=== PATIENT | male | born 1955 | race Caucasian/White ===

== ENCOUNTER 2023-06-18 06:14 | Emergency (ER) | payer OTHER, SELFPAY ==
--- NOTE | ~2023-06-18 | XR_ITS ---
EXAMINATION: XR CHEST CLINICAL INFORMATION: Cough and shortness of breath. COMPARISON: None available. TECHNIQUE: 2 views of the chest were obtained. FINDINGS: The lungs are well expanded. No focal consolidation. No pleural effusion. Cardiac silhouette is prominent. Thoracic aorta is tortuous and ectatic. XR/XR chest 2V IMPRESSION: No acute abnormality.
[2023-06-18 06:26] VITALS: BP 145/70; PULSE 93; RESP 22; TEMP 37.1; O2SAT 95; BMI 38.2
[2023-06-18 07:12] VITALS: BP 140/57; PULSE 98; RESP 19; TEMP 37; O2SAT 96
[2023-06-18 07:35] LABS: Appearance Urine Clear; Color Urine Yellow; Glucose Urine UA >=1000 mg/dL (Negative); Leukocyte Esterase Urine Negative (Negative); Nitrite Urine Negative (Negative); PH 5.5 (5.0-9.0); Specific Gravity - Urine >= 1.030 (1.005-1.025); UMIC TRIGGER UACC YES; Urine Blood Trace (Negative); Urine Ketones Negative (Negative); Urine Protein 100 (2+) mg/dL (Neg-Trace)
[2023-06-18 07:38] LABS: Bacteria Urine None Seen (None Seen); Hyaline Casts Urine 0-2 /LPF (0-2); RBC Urine 0-2 /HPF (0-2); Squamous Epithelial Cell Urine 0-2 /HPF (0-2); WBC Urine 0-5 /HPF (0-5)
--- NOTE | 2023-06-18 07:39 | ED_ITS ---
[facility] - General Adult General Chief complaint: Nausea/Vomiting/Diarrhea Stated complaint: Vomiting, diarrhea Time Seen by Provider: 06/18/23 07:33 Source: patient, RN notes reviewed and old records reviewed Mode of arrival: ambulatory History of Present Illness HPI narrative: 68-year-old male with past medical history of diabetes, AFib on Xarelto, presenting to the ED complaining of nonbloody diarrhea, nausea, chills, sweats, and SOB x1 week. Also reports some abdominal discomfort. Admits was evaluated at [place] ED last week s/p trip & fall down a few stairs, had workup which was unremarkable. Denies known fever, dysuria/hematuria, suspicious food intake or recent travel, LE edema Admits son is also sick Onset (ago): week(s) Related Data Allergies Allergy/AdvReac Type Severity Reaction Status Date / Time No Known Allergies Allergy Verified 06/18/23 06:32 Review of Systems 2 Review of Systems: Constitutional: No Fever, No Chills, No Fatigue, No Malaise ENT/Mouth: No Ear Pain, No Nasal Congestion,No sore throat, No Rhinorrhea, No Swallowing Difficulty Eyes: No Eye Pain, No Swelling, No Redness, No Vision Changes Cardiovascular: No Chest Pain, No SOB, No Dyspnea on Exertion, No Orthopnea, No Edema, No Palpitations Respiratory: No Cough, No Sputum, No Dyspnea Gastrointestinal: +Nausea,+ Vomiting, +Diarrhea, No Constipation, + Abdominal pain, No Hematochezia, No Melena Genitourinary: No irregular bleeding, No Dysuria, No Urinary Frequency, No Hematuria, No Flank Pain, No Urinary Flow Changes, No Hesitancy Musculoskeletal: No joint pain, No Myalgias, No Joint Swelling Skin: No Skin Lesions, No rash Neuro: No Weakness, No Numbness, No Loss of Consciousness, No Dizziness, No Headache Yes all other systems are reviewed and are negative Constitutional: Constitutional: Reports as per [facility] Past Medical History Attestation statement: The following information was validated with the patient. Source: old records reviewed Social History Social History Smoked in Last 30 Days: Yes Use of substances other than those prescribed or required for medical reasons: No Advance Directives: No Advance Directives Information Provided: Yes Physical Exam ED Vital Signs: Vital Signs - 24 hr 06/18/23 06:26 06/18/23 07:12 06/18/23 07:49 Temperature 98.7 F 98.6 F 98.3 F Pulse Rate 93 98 Respiratory Rate 22 H 19 Blood Pressure 145/70 H 140/57 H Pulse Oximetry 95 96 Oxygen Delivery Method Room Air Room Air 06/18/23 09:38 Temperature Pulse Rate 85 Respiratory Rate 16 Blood Pressure 133/61 Pulse Oximetry Oxygen Delivery Method BMI result Body Mass Index 38.2 Const General: cooperative, healthy appearing and no acute distress Orientation/consciousness: patient oriented x3 Limitations: no limitations HENMT Head: Yes normal to inspection and Yes atraumatic Ears: hearing grossly normal bilaterally and external ears normal General nose exam: Normal external nose present Face and sinus: Yes normal facial exam Mouth: Normal oral and palatal mucosa present and no drooling Throat: Yes posterior oropharynx normal, Yes uvula midline and No uvular edema Eyes General: appearance normal, both eyes and all related structures EOM: EOMs intact bilaterally Neck Neck: Yes normal visual inspection and Yes no meningeal signs Resp Effort & Inspection: normal respiratory effort and no respiratory distress Auscultation: clear to auscultation bilaterally, no crackles and no wheezes Cardio Rate: regular rate Heart sounds: S1 normal heart sound present and S2 normal heart sound present GI Inspection: Yes normal to inspection Palpation (GI): Soft to palpation, nontender, no guarding and not rigid General: Yes no CVA tenderness Back/Spine/Pelvis Back: no CVA tenderness Skin Rashes: no rashes Wounds: no wounds Neuro General: patient oriented x3, tone normal and no meningeal signs Cranial nerves: Yes CN's II-XII intact bilaterally Gait exam (Neuro): Normal gait present Extrem General: Yes normal to inspection and Yes no pedal edema Course Course Course Narrative: -0909--mild leukocytosis of 11.5. BUN of 19 likely from dehydration. Magnesium 1.5 > 2 g IV repletion ordered -UA not infected. COVID and influenza negative XR chest 2V IMPRESSION: No acute abnormality. > 0916--patient complaining of continued nausea, dry cough and neuropathy. Home dose of metoprolol, pregabalin -1026--patient is tolerating p.o. in the ED that difficulty. Requesting discharge at this Results discussed with patient including worrisome signs and symptoms and strict return precautions, and when to return to the emergency department. They verbalized understanding and feel safe for discharge at this time. Medications Administered Discontinued Medications Generic Name Dose Route Start Last Admin Trade Name Pari PRN Reason Stop Dose Admin Benzonatate 100 mg 06/18/23 09:15 06/18/23 09:33 Benzonatate 100 Mg Capsule PO 06/18/23 09:16 100 mg ONCE ONE Administration Sodium Chloride 1,000 mls @ 999 mls/hr 06/18/23 07:45 06/18/23 09:33 Ns IV 06/18/23 08:45 Infused .Q1H1M SUSANA Infusion Magnesium Sulfate 2 gm in 50 mls @ 25 mls/hr 06/18/23 09:10 06/18/23 09:32 Magnesium Sulfate/H2o IV 06/18/23 11:09 25 mls/hr ONCE ONE Administration Metoclopramide HCl 10 mg 06/18/23 09:15 06/18/23 09:33 Metoclopramide Hcl 10 Mg/2 Ml Vial IVPUSH 06/18/23 09:16 10 mg ONCE ONE Administration Metoprolol Succinate 100 mg 06/18/23 09:14 06/18/23 09:33 Metoprolol Succinate Er 100 Mg Tab.Er.24h PO 06/18/23 09:15 100 mg ONCE ONE Administration Protocol Ondansetron HCl 4 mg 06/18/23 07:53 06/18/23 08:07 Ondansetron Hcl 4 Mg/2 Ml Vial IVPUSH 06/18/23 07:54 4 mg ONCE ONE Administration Pregabalin 200 mg 06/18/23 09:14 06/18/23 09:54 Pregabalin 200 Mg Capsule PO 06/18/23 09:15 200 mg ONCE ONE Administration Medical Decision Making Medical Decision Making MDM Narrative: 68-year-old male with past medical history of diabetes, AFib on Xarelto, presenting to the ED complaining of nonbloody diarrhea, nausea, chills, sweats, and SOB x1 week. On exam vital signs stable, NAD, nontoxic appearing, lungs CTA, abdomen soft/nontender, no CVAT. Concern for viral illness including COVID-19 vs gastroenteritis vs dehydration/metabolic abnormalities. Rule out pneumonia/bronchitis. Lower suspicion for ACS/PE or CHF at this time. Unlikely appendicitis/diverticulitis or acute pancreatitis without tenderness on exam Plan: EKG, labs, UA, CXR, viral testing, IVF, antiemetic, re-evaluate Please refer to course for remaining clinical decision making, interpretation of labs/imaging results, and discussions with consultants and/or family members. Differential Diagnosis Differential Diagnoses: The differential diagnosis associated with the presentation includes As above Admission/Observation Consideration of admission/observation: Escalation of care including admission/observation considered Lab Data MDM Lab Attestation statement: I reviewed the patient's lab results. 06/18/23 07:39 06/18/23 08:16 Labs: Lab Results 06/18/23 06/18/23 06/18/23 Range/Units 07:25 07:39 07:47 WBC 11.5 H (4.8-10.8) X10*3/uL RBC 5.15 (4.60-5.80) X10*6/uL Hgb 15.0 (14.0-18.0) g/dl Hct 43.1 (42.0-52.0) % MCV 83.7 (80.0-98.0) fL MCH 29.1 (27.0-33.0) pg MCHC 34.8 (31.0-36.0) g/dl RDW 14.4 (11.0-16.0) % Plt Count 220 (160-400) X10*3/uL MPV 11.4 (9.4-12.4) fL Immature Gran % (Auto) 0.9 H (0.0-0.4) % Neut % (Auto) 73.3 H (45-73) % Lymph % (Auto) 15.2 L (20-40) % [place] % (Auto) 7.4 (2-11) % Eos % (Auto) 2.3 (0-4) % Baso % (Auto) 0.9 (0-2) % Lymph # (Auto) 1.8 (1.2-4.9) X10*3/uL [place] # (Auto) 0.9 (0.1-1.2) X10*3/uL Eos # (Auto) 0.3 (0.0-0.4) X10*3/uL Baso # (Auto) 0.1 (0.0-0.2) X10*3/uL Abs Immat Gran (auto) 0.10 H (0.00-0.03) X10*3/uL Absolute Neuts (auto) 8.4 H (2.0-8.3) x10*3/uL Absolute Nucleated RBC 0.000 (0.0-0.012) X10*3/uL Nucleated RBC % (auto) 0.0 (0.0-0.2) /100WBC Sodium (135-145) mmol/L Potassium (3.3-5.1) mmol/L Chloride (96-108) mmol/L Carbon Dioxide (22-29) mmol/L Anion Gap (12-20) BUN (9-16) mg/dL Creatinine (0.5-1.4) mg/dL Estim Creat Clear Calc Estimated GFR Random Glucose (60-115) mg/dL Calcium (8.4-10.2) mg/dL Magnesium (1.6-2.6) mg/dL Total Bilirubin (0.0-1.0) mg/dL AST (5-37) U/L ALT (0-40) U/L Alkaline Phosphatase (39-117) U/L B-Natriuretic Peptide 76 (<100) pg/mL Total Protein (6.5-8.0) g/dL Albumin (3.5-5.0) g/dL Urine Color Yellow Urine Appearance Clear Urine pH 5.5 (5.0-9.0) Ur Specific [place] >= 1.030 H (1.005-1.025) Urine Protein 100 (2+) H (Neg-Trace) mg/dL Urine Glucose (UA) >=1000 H (Negative) mg/dL Urine Ketones Negative (Negative) mg/dL Urine Blood Trace H (Negative) Urine Nitrite Negative (Negative) Ur Leukocyte Esterase Negative (Negative) Urine RBC 0-2 (0-2) /HPF Urine WBC 0-5 (0-5) /HPF Ur Squamous Epith Cells 0-2 (0-2) /HPF Urine Bacteria None Seen (None Seen) Hyaline Casts 0-2 (0-2) /LPF COVID-19 (GHASSAN) Negative (Negative) COVID-19 Clin Com See Note Influenza Type A (EDWIN) Negative (Negative) Influenza Type B (EDWIN) Negative (Negative) Influenza A & B Note See Note 06/18/23 Range/Units 08:16 WBC (4.8-10.8) X10*3/uL RBC (4.60-5.80) X10*6/uL Hgb (14.0-18.0) g/dl Hct (42.0-52.0) % MCV (80.0-98.0) fL MCH (27.0-33.0) pg MCHC (31.0-36.0) g/dl RDW (11.0-16.0) % Plt Count (160-400) X10*3/uL MPV (9.4-12.4) fL Immature Gran % (Auto) (0.0-0.4) % Neut % (Auto) (45-73) % Lymph % (Auto) (20-40) % [place] % (Auto) (2-11) % Eos % (Auto) (0-4) % Baso % (Auto) (0-2) % Lymph # (Auto) (1.2-4.9) X10*3/uL [place] # (Auto) (0.1-1.2) X10*3/uL Eos # (Auto) (0.0-0.4) X10*3/uL Baso # (Auto) (0.0-0.2) X10*3/uL Abs Immat Gran (auto) (0.00-0.03) X10*3/uL Absolute Neuts (auto) (2.0-8.3) x10*3/uL Absolute Nucleated RBC (0.0-0.012) X10*3/uL Nucleated RBC % (auto) (0.0-0.2) /100WBC Sodium 133 L (135-145) mmol/L Potassium 3.8 (3.3-5.1) mmol/L Chloride 100 (96-108) mmol/L Carbon Dioxide 20 L (22-29) mmol/L Anion Gap 17 (12-20) BUN 19 H (9-16) mg/dL Creatinine 1.15 (0.5-1.4) mg/dL Estim Creat Clear Calc 77.4 Estimated GFR > 60 Random Glucose 270 H (60-115) mg/dL Calcium 9.9 (8.4-10.2) mg/dL Magnesium 1.5 L (1.6-2.6) mg/dL Total Bilirubin 0.6 (0.0-1.0) mg/dL AST 21 (5-37) U/L ALT 18 (0-40) U/L Alkaline Phosphatase 95 (39-117) U/L B-Natriuretic Peptide (<100) pg/mL Total Protein 6.5 (6.5-8.0) g/dL Albumin 3.7 (3.5-5.0) g/dL Urine Color Urine Appearance Urine pH (5.0-9.0) Ur Specific [place] (1.005-1.025) Urine Protein (Neg-Trace) mg/dL Urine Glucose (UA) (Negative) mg/dL Urine Ketones (Negative) mg/dL Urine Blood (Negative) Urine Nitrite (Negative) Ur Leukocyte Esterase (Negative) Urine RBC (0-2) /HPF Urine WBC (0-5) /HPF Ur Squamous Epith Cells (0-2) /HPF Urine Bacteria (None Seen) Hyaline Casts (0-2) /LPF COVID-19 (GHASSAN) (Negative) COVID-19 Clin Com Influenza Type A (EDWIN) (Negative) Influenza Type B (EDWIN) (Negative) Influenza A & B Note Independent Interpretation I performed an independent interpretation of an: EKG Radiology Impression Discussion of test interpretation with radiology: I have reviewed the radiologist's reading. External Record Review External record reviewed: Inpatient record, Office record, Outpatient record, Prior outpatient labs, Prior outpatient radiology, Primary care record and Outside ED record Tests considered The following testing was considered but not selected: As above Chronic Conditions Patient?s care impacted by: Diabetes Discharge Plan Discharge Clinical Impression: Acute viral syndrome Patient Disposition: Home, Self-Care Instructions: Viral Syndrome (ED) Additional Instructions: Your work and x-ray were reassuring You tested negative COVID and flu x-rays unremarkable Please of close follow-up with your doctor If symptoms persist or worsen return to emergency department Make sure you are staying hydrated Referrals: Physician,Unknown J [Primary Care Provider] - 3 days Interventions: ED Discharge Assessment Last Done: 06/18/23 10:48 Discharge Date/Time: 06/18/23 10:50
[2023-06-18 07:45] LABS: MANUAL DIFF FLAG NO
[2023-06-18 07:46] LABS: Basophils Absolute Auto 0.1 X10*3/uL (0.0-0.2); Basophils Percent Auto 0.9 % (0-2); Eosinophils Absolute Auto 0.3 X10*3/uL (0.0-0.4); Eosinophils Percent Auto 2.3 % (0-4); Hematocrit 43.1 % (42.0-52.0); Imm Gran Pct Auto 0.9 % (0.0-0.4); Lymphocytes Absolute Auto 1.8 X10*3/uL (1.2-4.9); Lymphocytes Percent Auto 15.2 % (20-40); Mean Corpuscular HGB Conc 34.8 g/dl (31.0-36.0); Mean Corpuscular Hemoglobin 29.1 pg (27.0-33.0); Mean Corpuscular Volume 83.7 fL (80.0-98.0); Mean Platelet Volume 11.4 fL (9.4-12.4); Monocytes Absolute Auto 0.9 X10*3/uL (0.1-1.2); Monocytes Percent Auto 7.4 % (2-11); Neutrophils Absolute Auto 8.4 x10*3/uL (2.0-8.3); Neutrophils Percent Auto 73.3 % (45-73); Platelet Count 220 X10*3/uL (160-400); Red Blood Count 5.15 X10*6/uL (4.60-5.80); Red Cell Distribution Width 14.4 % (11.0-16.0); White Blood Count 11.5 X10*3/uL (4.8-10.8)
[2023-06-18 07:49] VITALS: TEMP 36.8
[2023-06-18 07:49] LABS: COVID-19 Test Negative (Negative); IDNOW Serial# 6674DD1D
--- NOTE | 2023-06-18 07:58 | ECG_ITS ---
Test Reason : sob Blood Pressure : / mmHG Vent. Rate : 094 BPM Atrial Rate : 000 BPM P-R Int : 000 ms QRS Dur : 138 ms QT Int : 412 ms P-R-T Axes : 000 104 013 degrees QTc Int : 515 ms Atrial fibrillation Right bundle branch block Abnormal ECG No previous ECGs available Referred By: Rosalba Jarvis Electronically Signed By:PHIL TREJO
[2023-06-18] MEDS: ondansetron HCL 4 MG/2 ML VIAL IVPUSH (08:07)
[2023-06-18] MEDS: 0.9 % Sodium Chloride 1,000 ML 999 ML IV (08:07)
[2023-06-18 08:12] LABS: IDNOW Serial# 08D9AD1C; Influenza A Negative (Negative); Influenza B2 Negative (Negative)
[2023-06-18 08:44] LABS: Alanine Aminotransferase 18 U/L (0-40); Albumin Level 3.7 g/dL (3.5-5.0); Alkaline Phosphatase 95 U/L (39-117); Anion Gap 17 (12-20); Aspartate Amino Transferase 21 U/L (5-37); Bilirubin Total 0.6 mg/dL (0.0-1.0); Blood Urea Nitrogen 19 mg/dL (9-16); Calcium 9.9 mg/dL (8.4-10.2); Carbon Dioxide 20 mmol/L (22-29); Chloride 100 mmol/L (96-108); Creatinine Clr Calc Pharmacy 77.4; Estimated Glomerular Filt Rate > 60; Glucose Random 270 mg/dL (60-115); Potassium 3.8 mmol/L (3.3-5.1); Sodium 133 mmol/L (135-145); Total Protein 6.5 g/dL (6.5-8.0)
[2023-06-18 08:59] LABS: Magnesium 1.5 mg/dL (1.6-2.6)
[2023-06-18 08:59] LABS: B Type Natriuretic Peptide 76 pg/mL (<100)
[2023-06-18] MEDS: Magnesium Sulfate/H2O 2 GM/50 ML PIGGYBACK IV (09:32)
[2023-06-18] MEDS: Metoprolol Succinate ER 100 MG TAB.ER.24H PO (09:33)
[2023-06-18] MEDS: Benzonatate 100 MG CAPSULE PO (09:33)
[2023-06-18] MEDS: Metoclopramide HCl 10 MG/2 ML VIAL IVPUSH (09:33)
[2023-06-18 09:38] VITALS: BP 133/61; PULSE 85; RESP 16
[2023-06-18] MEDS: Pregabalin 200 MG CAPSULE PO (09:54)
== END 2023-06-18 10:50 | disposition home or self-care (01) ==
PROVIDERS: Physician Assistant; Emergency Provider Emergency Medicine
DX: B34.9 Viral infection, unspecified (principal); I48.91 Unspecified atrial fibrillation; I45.10 Unspecified right bundle-branch block; R11.2 Nausea with vomiting, unspecified; R19.7 Diarrhea, unspecified; R10.13 Epigastric pain; R06.02 Shortness of breath; Z20.822 Contact with and (suspected) exposure to COVID-19; Z20.828 Contact with and (suspected) exposure to other viral communicable diseases; Z79.899 Other long term (current) drug therapy
CPT/HCPCS: 36415; 71046; 80053; 81001; 83735; 83880; 85025; 87502; 87635; 93005; 96361; 96374; 96375; 99284; 99285; J2405; J2765; J3475

== ENCOUNTER 2024-12-18 22:15 | Inpatient (IN) | payer MEDICARE, SELFPAY ==
--- NOTE | 2024-12-18 | ECG_ITS ---
Test Reason : TACHYCARDIA Blood Pressure : */* mmHG Vent. Rate : 111 BPM Atrial Rate : * BPM P-R Int : * ms QRS Dur : 134 ms QT Int : 368 ms P-R-T Axes : * 102 -13 degrees QTcB Int : 500 ms Atrial fibrillation with rapid ventricular response with premature ventricular or aberrantly conducted complexes Right bundle branch block Abnormal ECG When compared with ECG of 18-Jun-2023 08:33, Nonspecific ST and T wave abnormality present Referred By: Generic ED Physician Electronically Signed By: RAINE MCGOWAN
--- NOTE | ~2024-12-18 | CT_ITS ---
CLINICAL HISTORY: altered mental status CT head without contrast Comparison: None Findings: No intra-axial mass, midline shift, hydrocephalus, or acute hemorrhage. Small hypodensity in the central estelita image 20:2. The visualized paranasal sinuses and mastoid air cells are normal. The orbits are within normal limits. There is no acute fracture. IMPRESSION: Small central estelita hypodensity is age indeterminate. An old lacunar infarct is favored. This can be further characterized with MRI if needed. This document has been electronically signed by: Ambika Hua MD on 12/18/2024 23:41:18
--- NOTE | ~2024-12-18 | XR_ITS ---
CLINICAL HISTORY: cough 1 view chest Comparison: CR/DE/SR - XR CHEST 2V - 06/18/23 08:34 EDT Findings: Low inspiration. Resultant mild vascular crowding centrally with subsegmental atelectasis. No consolidation or effusion. Heart size enlarged. No acute fractures. Impression: 1. Low inspiration with central vascular crowding and subsegmental atelectasis. This document has been electronically signed by: Ambika Hua MD on 12/19/2024 00:32:24
--- NOTE | ~2024-12-18 | MR_ITS ---
CLINICAL HISTORY: pontine hypodensity Motion throughout images. BLADE sequences run. MR Brain without gadolinium Comparison: CT/DC/SR - CT HEAD/BRAIN WO IV CON - 12/18/24 23:05 EDT Findings: No restricted diffusion. No intra-axial mass or hemorrhage. No midline shift. No hydrocephalus. Vascular flow voids are intact. Orbital contents are unremarkable. The sinuses and mastoid air cells are clear. No focal bone lesion. IMPRESSION: No acute abnormality of the brain. This document has been electronically signed by: Kristie Jack MD on 12/20/2024 14:14:15
[2024-12-18 22:19] VITALS: BP 170/100; PULSE 130; O2SAT 98
[2024-12-18 22:21] VITALS: BP 122/100; PULSE 129; RESP 20; TEMP 36.8; O2SAT 95; BMI 35.4
--- NOTE | 2024-12-18 22:41 | PC.NURSE ---
18G placed in right wrist, labs obtained. pt able to urinate in urinal, urinalysis sent.
[2024-12-18 22:42] LABS: Glucose, Whole Blood > 600 mg/dL (60-115)
[2024-12-18 22:45] LABS: Basophils Percent Auto 0.1 % (0-2); Hematocrit 34.9 % (42.0-52.0); Hemoglobin 11.3 g/dl (14.0-18.0); Imm Gran Abs Auto 0.08 X10*3/uL (0.00-0.03); Imm Gran Pct Auto 0.8 % (0.0-0.4); Lymphocytes Absolute Auto 0.2 X10*3/uL (1.2-4.9); Lymphocytes Percent Auto 1.5 % (20-40); MANUAL DIFF FLAG SCAN; Mean Corpuscular HGB Conc 32.4 g/dl (31.0-36.0); Mean Corpuscular Hemoglobin 26.7 pg (27.0-33.0); Mean Corpuscular Volume 82.5 fL (80.0-98.0); Mean Platelet Volume 10.9 fL (9.4-12.4); Monocytes Absolute Auto 0.1 X10*3/uL (0.1-1.2); Monocytes Percent Auto 0.7 % (2-11); Neutrophils Absolute Auto 10.3 x10*3/uL (2.0-8.3); Neutrophils Percent Auto 96.9 % (45-73); Platelet Count 333 X10*3/uL (160-400); Red Blood Count 4.23 X10*6/uL (4.60-5.80); Red Cell Distribution Width 17.3 % (11.0-16.0); SCAN SMEAR FLAG 1; White Blood Count 10.6 X10*3/uL (4.8-10.8)
[2024-12-18 22:45] LABS: VBG Base Excess -6.1 mmol/L; VBG HCO3 18 mmol/L (22-26); VBG pCO2 33 mmHg; VBG pH 7.34 (7.32-7.43); VBG pO2 73 mmHg
[2024-12-18 22:45] LABS: Venous Blood Gas Refer to POC result
[2024-12-18 22:46] LABS: Appearance Urine Clear; Color Urine Yellow; Glucose Urine UA >=1000 mg/dL (Negative); Leukocyte Esterase Urine Negative (Negative); Nitrite Urine Negative (Negative); Specific Gravity - Urine >= 1.030 (1.005-1.025); UMIC TRIGGER UACC YES; Urine Blood Small (1+) (Negative); Urine Ketones Negative (Negative); Urine Protein 100 (2+) mg/dL (Neg-Trace)
[2024-12-18 22:55] LABS: Ethanol < 10 mg/dL
[2024-12-18 22:58] LABS: Amphetamine Screen Urine Not Detected (Not Detect); Barbiturates, Urine Not Detected (Not Detect); Benzodiazepines Screen Urine Not Detected (Not Detect); Buprenorphine Scr Not Detected (Not Detect); Cannabinoid Screen Urine Not Detected (Not Detect); Cocaine Screen Urine Not Detected (Not Detect); Fentanyl, urine Not Detected (Not Detect); Methadone Screen, Urine Not Detected (Not Detect); Opiate Screen Urine POSITIVE (Not Detect); Oxycodone Screen Urine Not Detected (Not Detect); Phencyclidine Screen Urine Not Detected (Not Detect)
[2024-12-18 23:00] LABS: Alanine Aminotransferase 11 U/L (0-40); Albumin Level 3.8 g/dL (3.5-5.0); Alkaline Phosphatase 108 U/L (39-117); Anion Gap 23 (12-20); Aspartate Amino Transferase 15 U/L (5-37); Bilirubin Total 0.4 mg/dL (0.0-1.0); Blood Urea Nitrogen 31 mg/dL (9-16); Calcium 8.8 mg/dL (8.4-10.2); Carbon Dioxide 18 mmol/L (22-29); Chloride 95 mmol/L (96-108); Estimated Glomerular Filt Rate 40; Potassium 4.5 mmol/L (3.3-5.1); Sodium 131 mmol/L (135-145); Total Protein 6.9 g/dL (6.5-8.0)
[2024-12-18 23:02] LABS: Bacteria Urine None Seen (None Seen); Hyaline Casts Urine 0-2 /LPF (0-2); Squamous Epithelial Cell Urine 0-2 /HPF (0-2); WBC Urine 0-5 /HPF (0-5)
[2024-12-18 23:05] LABS: SLIDE REVIEW VERIFIED
[2024-12-18 23:13] LABS: Glucose Random 805 mg/dL (60-115)
[2024-12-18] MEDS: 0.9 % Sodium Chloride 1,000 ML 999 ML IV (23:15)
[2024-12-18] MEDS: Insulin Regular, Human 100 UNIT/ML 10 ML VIAL 10 UNIT IVPUSH (23:16)
[2024-12-18] MEDS: Lactated Ringers 1,000 ML 999 ML IV (23:26)
[2024-12-18 23:27] LABS: Beta-Hydroxybutyrate 0.29 mmol/L (0.02-0.27)
[2024-12-18 23:30] LABS: Glucose, Whole Blood > 600 mg/dL (60-115)
[2024-12-18] MEDS: Insulin Regular/NS 100 UNIT/100 ML PLAST..BAG 6 UNIT IVCONT (23:42)
[2024-12-19] VITALS (11 sets, daily range): BP systolic 134–147; BP diastolic 65–72; PULSE 87–108; RESP 18–24; TEMP 36.6; O2SAT 95–99
--- NOTE | 2024-12-19 00:01 | PC.NURSE ---
second line started, insulin drip started.
[2024-12-19] MEDS: Albuterol Sulfate 2.5 MG, Albuterol/Iprat 2.5/0.5MG 3 ML 3 ML INHALE (00:10)
[2024-12-19 00:32] LABS: Glucose, Whole Blood > 600 mg/dL (60-115)
[2024-12-19] MEDS: LORazepam 2 MG/ML VIAL IVPUSH (00:35)
--- NOTE | 2024-12-19 00:41 | PC.NURSE ---
poc reading high, blood drawn taken at this time. no change in insulin drip at this time, notified provider.
--- OUTSIDE RECORDS SUMMARY | 2024-12-19 00:55 | XMS_ITS | Clinical Summary ---
Author Organization [address] [facility] Address [address] [place] [address] Phone Care Team Providers Care Cnc Machinist Name Role Phone Josh Dumont MD Primary Care Provider Encounters Date Type Department Care Team Description 12/11/2024 Lab Requisition [facility] Lab [address] [place] [phone] Josh Dumont MD Unspecified atrial fibrillation (CMS/HCC); Type 1 diabetes mellitus, presymptomatic, unspecified; Chronic systolic (congestive) heart failure (CMS/HCC) 12/09/2024 Lab Requisition [facility] Lab [address] [place] [phone] Josh Dumont MD Type 2 diabetes mellitus without complications (CMS/HCC) 11/29/2024 Lab Requisition [facility] Lab [address] [place] [phone] Josh Dumont MD Essential (primary) hypertension; Type 2 diabetes mellitus without complications (CMS/HCC) from Last 3 Months Surgical History Surgery Date Site/Laterality Comments APPENDECTOMY PROCEDURE: HISTORICAL APPENDECTOMY BACK SURGERY PROCEDURE: HISTORICAL BACK SURGERY; COMMENT: surgery x 3, lumbar Medical History Medical History Date Comments Morbid obesity with BMI of 4 0.0-44.9, adult (CMS/HCC) 08/14/2018 DX:Morbid obesity with BMI o f 40.0-44.9, adult (HCC) Chronic hepatitis C (CMS/HCC) 08/14/2018 DX :Chronic hepatitis C (HCC); COMMENT: Starting Harvoni 07/04/2018 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) 08/14/2018 DX: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 (HCC) Persistent atrial fibrillati on (CMS/HCC) 08/14/2018 DX:Persistent atrial fibrill ation (HCC) COPD (chronic obstructive pu lmonary disease) ([facility]) 11/08/2018 DX:COPD (chronic obstructive pulmonary disease) ([facility]) Bipolar disorder 11/08/2018 DX:Bipolar diso rder ([facility]) CHF (congestive heart failur e) ([facility]) 08/14/2018 DX:CHF (congestive heart ezio lure) ([facility]) GERD (gastroesophageal reflu x disease) 11/08/2018 DX:GERD (gastroesophageal re flux disease) Hyperlipidemia 11/08/2018 DX:Hyperlipidemi a HTN (hypertension) 11/08/2018 DX:HTN (hyper tension) DON on CPAP 11/08/2018 DX:DON on CPAP DDD (degenerative disc disea se), lumbosacral 11/08/2018 DX:DDD (degenerative disc di sease), lumbosacral Social History Tobacco Use Types Packs/Day Years Used Date Smoking Tobacco: Light Smoker Smokeless Tobacco: Never Sex and Gender Information Value Date Recorded Sex Assigned at Not on file Legal Sex Male 2:50 AM EST Gender Identity Not on file Sexual Orientation Not on file Obstetrics History Plan of Treatment Health Maintenance Due Date Last Done Comments Diabetes: Annual Foot Exam 1967 Diabetes: Annual Retina Eye Exam 1967 Hepatitis A Vaccines (1 of 2 - Risk 2-dose series) 1976 Zoster Vaccines (1 of 2) 2007 Hepatitis B Vaccines (1 of 3 - Risk 3-dose series) 2017 RSV Immunization Adult Patients (1 - Risk 60-74 years 1-dose series) 2017 COVID-19 Vaccine ( season) 2024 07/09/2021, 11/11/2020, 10/14/2020 Abdominal Aortic Aneurysm (AAA) Screen 11/29/2024 Cholesterol Screening (Lipid Panel) 11/29/2024 Colorectal Cancer Screening: Colonoscopy 11/29/2024 Depression Screening 11/29/2024 Diabetes: Annual Urine Albumin-Creatinine Ratio (uACR) 11/29/2024 Diabetes: Blood Sugar Control Test (HGBA1C) 11/29/2024 Falls Risk Assessment 11/29/2024 Hepatitis C Screening 11/29/2024 Medicare Annual Wellness Visit 11/29/2024 Social Influencers of Health Screening 11/29/2024 DTaP,Tdap,and Td Vaccines (2 - Td or Tdap) 10/19/2025 10/19/2015 Diabetes: Annual GFR (Glomerular Filtration Rate) 12/11/2025 12/11/2024, 12/09/2024, 11/29/2024 Hypertension/CHF/CAD Annual BMP Blood Test 12/11/2025 12/11/2024, 12/09/2024, 11/29/2024 Pneumococcal Vaccine: 50+ Years Completed 08/30/2023, 01/13/2017, 10/08/2008 Influenza Vaccine Completed 08/08/2024, , 07/13/2022, Additional history exists HIB Vaccines Aged Out No longer eligi ble based on patient's age to complete this topic HPV Vaccines Aged Out No longer eligi ble based on patient's age to complete this topic IPV Vaccines Aged Out No longer eligi ble based on patient's age to complete this topic MMR Vaccines Aged Out No longer eligi ble based on patient's age to complete this topic Meningococcal ACWY Vaccine Aged Out N o longer eligible based on patient's age to complete this topic Meningococcal B Vacine Aged Out No lo nger eligible based on patient's age to complete this topic RSV Immunization Patients Under 20 months Aged Out No longer eligible based on patient's age to complete this topic Varicella Vaccines Aged Out No longer eligible based on patient's age to complete this topic Procedures Procedure Name Priority Date/Time Associated Diagnosis Comments B-TYPE NATRIURETIC PEPTIDE Routine 12/11/2024 5:15 AM EDT Unspecified atrial fibrillation (CMS/HCC) Type 1 diabetes mellitus, presymptomatic, unspecified Chronic systolic (congestive) heart failure BASIC METABOLIC PANEL Routine 12/11/2024 5:15 AM EDT Unspecified atrial fibrillation (CMS/HCC) Type 1 diabetes mellitus, presymptomatic, unspecified Chronic systolic (congestive) heart failure COMPLETE BLOOD COUNT Routine 12/11/2024 5:15 AM EDT Unspecified atrial fibrillation (CMS/HCC) Type 1 diabetes mellitus, presymptomatic, unspecified Chronic systolic (congestive) heart failure BASIC METABOLIC PANEL Routine 12/09/2024 5:18 AM EDT Type 2 diabetes mellitus without complications COMPLETE BLOOD COUNT Routine 12/09/2024 5:18 AM EDT Type 2 diabetes mellitus without complications BASIC METABOLIC PANEL Routine 11/29/2024 7:38 AM EDT Essential (primary) hypertension Type 2 diabetes mellitus without complications (CMS/HCC) COMPLETE BLOOD COUNT Routine 11/29/2024 7:38 AM EDT Essential (primary) hypertension Type 2 diabetes mellitus without complications (CMS/HCC) from Last 3 Months Results * (ABNORMAL) Complete blood count (12/11/2024 5:15 AM EDT) Only the most recent of3 resultswithin the time period is included. WBC 10.1 4.8 - 10.8 K/mcL LAB HEMETOLOGY METHOD 12/11/2024 9:42 AM [facility] RBC 4.40(L) 4.50 - 5.50 M/mcL LAB HEMETOLOGY METHOD 12/11/2024 9:42 AM [facility] Hemoglobin 11.6(L) 13.5 - 17.5 g/dL LAB HEMETOLOGY METHOD 12/11/2024 9:42 AM [facility] Hematocrit 37.2(L) 42.0 - 54.0 % LAB HEMETOLOGY METHOD 12/11/2024 9:42 AM [facility] MCV 85.5 79.0 - 98.0 FL LAB HEMETOLOGY METHOD 12/11/2024 9:42 AM [facility] MCH 26.7(L) 27.0 - 32.0 pcg LAB HEMETOLOGY METHOD 12/11/2024 9:42 AM [facility] MCHC 31.2(L) 32.0 - 37.0 g/dL LAB HEMETOLOGY METHOD 12/11/2024 9:42 AM EDT [facility] RDW 17.2(H) 11.0 - 15.0 % LAB HEMETOLOGY METHOD 12/11/2024 9:42 AM EDT [facility] Platelets 306 130 - 400 K/mcL LAB HEMETOLOGY METHOD 12/11/2024 9:42 AM EDT [facility] MPV 10.3 7.0 - 11.0 FL LAB HEMETOLOGY METHOD 12/11/2024 9:42 AM EDT [facility] NRBC 0.0 <1.0 % LAB HEMETOLOGY METHOD 12/11/2024 9:42 AM EDT [facility] NRBC Absolute 0.00 <0.10 K/mcL LAB HEMETOLOGY METHOD 12/11/2024 9:42 AM EDT [facility] Blood Venous blood specimen / Unknown Venipuncture / Unknown 12/11/2024 5:15 AM EDT 12/11/2024 9:28 AM EDT Josh Dumont MD LAB BLOOD ORDERABLES Final R esult Performing Organization Address City/[facility]/ZIP Co de Phone Number [facility] [address] [place] [address], * (ABNORMAL) B-type natriuretic peptide (12/11/2024 5:15 AM EDT) BNP 134(H) <=100 pcg/mL LAB CHEMISTRY METHOD 12/11/2024 10:26 AM EDT [facility] Blood Venous blood specimen / Unknown Venipuncture / Unknown 12/11/2024 5:15 AM EDT 12/11/2024 9:28 AM EDT Josh Dumont MD LAB BLOOD ORDERABLES Final R esult [facility] [address] [place] [address], * (ABNORMAL) Basic metabolic panel (12/11/2024 5:15 AM EDT) Only the most recent of3 resultswithin the time period is included. Sodium 136 133 - 145 mmol/L LAB CHEMISTRY METHOD 12/11/2024 10:21 AM [facility] Potassium 4.6 3.5 - 5.5 mmol/L LAB CHEMISTRY METHOD 12/11/2024 10:21 AM [facility] Chloride 98 96 - 110 mmol/L LAB CHEMISTRY METHOD 12/11/2024 10:21 AM [facility] CO2 29 21 - 32 mmol/L LAB CHEMISTRY METHOD 12/11/2024 10:21 AM [facility] Anion Gap 9 3 - 11 LAB CHEMISTRY METHOD 12/11/2024 10:21 AM [facility] Glucose 165(H) 70 - 100 mg/dL LAB CHEMISTRY METHOD 12/11/2024 10:21 AM [facility] BUN 23 5 - 25 mg/dL LAB CHEMISTRY METHOD 12/11/2024 10:21 AM [facility] Creatinine 1.14 0.70 - 1.30 mg/dL LAB CHEMISTRY METHOD 12/11/2024 10:21 AM [facility] eGFR 70 >=60 mL/min/1. 73m2 LAB CHEMISTRY METHOD 12/11/2024 10:21 AM [facility] Comment:Calculation based on the??Chronic Kidney Disease Epidemiology Collaboration (CKD-EPI) equation refit??without adjustment for race. BUN/Creatinine Ratio 20.2 LAB CHEMISTRY METHOD 12/11/2024 10:21 AM [facility] Calcium 9.5 8.5 - 10.5 mg/dL LAB CHEMISTRY METHOD 12/11/2024 10:21 AM EDT [facility] Blood Venous blood specimen / Unknown Venipuncture / Unknown 12/11/2024 5:15 AM EDT 12/11/2024 9:28 AM EDT Josh Dumont MD LAB BLOOD ORDERABLES Final R esult [facility] [address] [place] [address], from Last 3 Months Insurance [employer] - [place] MEDICARE ADVANTAGE Care Teams Cnc Machinist Relationship Specialty Start Date End Date Josh Dumont MD [address] [place] [address] PCP - General Family Medicine 11/29/24
--- OUTSIDE RECORDS SUMMARY | 2024-12-19 00:56 | XMS_ITS | Encounter Summary ---
Author Organization [employer] Address [address] [place] [address] Care Team Providers Care Sourcing Analyst Name Role Phone Josh Dumont MD Primary Care Provider [phone] Encounter Details Date Type Department Care Team (Latest Contact Info) Description 11/29/2024 Lab Requisition [facility] Lab [address] [place] [address] Josh Dumont MD [facility] [place] [address] Essential (primary) hypertension; Type 2 diabetes mellitus without complications (CMS/HCC) Social History Tobacco Use Types Packs/Day Years Used Date Smoking Tobacco: Light Smoker Smokeless Tobacco: Never Sex and Gender Information Value Date Recorded Sex Assigned at Not on file Legal Sex Male 2:50 AM EST Gender Identity Not on file Sexual Orientation Not on file documented as of this encounter Plan of Treatment Not on file documented as of this encounter Procedures Procedure Name Priority Date/Time Associated Diagnosis Comments COMPLETE BLOOD COUNT Routine 11/29/2024 7:38 AM EDT Essential (primary) hypertension Type 2 diabetes mellitus without complications (CMS/HCC) BASIC METABOLIC PANEL Routine 11/29/2024 7:38 AM EDT Essential (primary) hypertension Type 2 diabetes mellitus without complications (CMS/HCC) documented in this encounter Results * (ABNORMAL) Basic metabolic panel (11/29/2024 7:38 AM EDT) Sodium 138 133 - 145 mmol/L LAB CHEMISTRY METHOD 11/29/2024 12:43 PM EDT [facility] Potassium 4.7 3.5 - 5.5 mmol/L LAB CHEMISTRY METHOD 11/29/2024 12:43 PM [facility] Chloride 102 96 - 110 mmol/L LAB CHEMISTRY METHOD 11/29/2024 12:43 PM [facility] CO2 31 21 - 32 mmol/L LAB CHEMISTRY METHOD 11/29/2024 12:43 PM [facility] Anion Gap 5 3 - 11 LAB CHEMISTRY METHOD 11/29/2024 12:43 PM [facility] Glucose 143(H) 70 - 100 mg/dL LAB CHEMISTRY METHOD 11/29/2024 12:43 PM [facility] BUN 29(H) 5 - 25 mg/dL LAB CHEMISTRY METHOD 11/29/2024 12:43 PM [facility] Creatinine 1.12 0.70 - 1.30 mg/dL LAB CHEMISTRY METHOD 11/29/2024 12:43 PM [facility] eGFR 72 >=60 mL/min/1. 73m2 LAB CHEMISTRY METHOD 11/29/2024 12:43 PM [facility] Comment:Calculation based on the??Chronic Kidney Disease Epidemiology Collaboration (CKD-EPI) equation refit??without adjustment for race. BUN/Creatinine Ratio 25.9 LAB CHEMISTRY METHOD 11/29/2024 12:43 PM [facility] Calcium 8.9 8.5 - 10.5 mg/dL LAB CHEMISTRY METHOD 11/29/2024 12:43 PM [facility] Blood Venous blood specimen / Unknown Venipuncture / Unknown 11/29/2024 7:38 AM EDT 11/29/2024 11:59 AM EDT us Josh Dumont MD LAB BLOOD ORDERABLES Final R esult [facility] [address] [place] [address], * (ABNORMAL) Complete blood count (11/29/2024 7:38 AM EDT) [facility] WBC 6.3 4.8 - 10.8 K/mcL LAB HEMETOLOGY METHOD 11/29/2024 12:33 PM [facility] RBC 4.20(L) 4.50 - 5.50 M/mcL LAB HEMETOLOGY METHOD 11/29/2024 12:33 PM [facility] Hemoglobin 11.1(L) 13.5 - 17.5 g/dL LAB HEMETOLOGY METHOD 11/29/2024 12:33 PM [facility] Hematocrit 36.1(L) 42.0 - 54.0 % LAB HEMETOLOGY METHOD 11/29/2024 12:33 PM [facility] MCV 86.8 79.0 - 98.0 FL LAB HEMETOLOGY METHOD 11/29/2024 12:33 PM [facility] MCH 26.7(L) 27.0 - 32.0 pcg LAB HEMETOLOGY METHOD 11/29/2024 12:33 PM [facility] MCHC 30.7(L) 32.0 - 37.0 g/dL LAB HEMETOLOGY METHOD 11/29/2024 12:33 PM [facility] RDW 17.4(H) 11.0 - 15.0 % LAB HEMETOLOGY METHOD 11/29/2024 12:33 PM [facility] Platelets 182 130 - 400 K/mcL LAB HEMETOLOGY METHOD 11/29/2024 12:33 PM [facility] MPV 12.0(H) 7.0 - 11.0 FL LAB HEMETOLOGY METHOD 11/29/2024 12:33 PM [facility] NRBC 0.0 <1.0 % LAB HEMETOLOGY METHOD 11/29/2024 12:33 PM [facility] NRBC Absolute 0.00 <0.10 K/mcL LAB HEMETOLOGY METHOD 11/29/2024 12:33 PM EDT [facility] Blood Venous blood specimen / Unknown Venipuncture / Unknown 11/29/2024 7:38 AM EDT 11/29/2024 11:59 AM EDT us Josh Dumont MD LAB BLOOD ORDERABLES Final R esult [facility] [address] [place] [address], documented in this encounter Visit Diagnoses Diagnosis Essential (primary) hypertension Unspecified essential hypertension Type 2 diabetes mellitus without complications documented in this encounter Care Teams Sourcing Analyst Relationship Specialty Start Date End Date Josh Dumont MD [address] [place] [address] PCP - General Family Medicine 11/29/24 documented as of this encounter
--- OUTSIDE RECORDS SUMMARY | 2024-12-19 00:56 | XMS_ITS | Encounter Summary ---
Author Organization [employer] Address [address] [place] [address] Care Team Providers Care Clammer Name Role Phone Josh Dumont MD Primary Care Provider Encounter Details Date Type Department Care Team (Late st Contact Info) Description 12/11/[address] [facility] - [facility] Lab [address] [facility] [place] [address] Josh Dumont MD [address] [place] [address] Unspecified atrial fibrillation (CMS/HCC); Type 1 diabetes mellitus, presymptomatic, unspecified; Chronic systolic (congestive) heart failure (CMS/HCC) Social History Tobacco Use Types Packs/Day [...] Associated Diagnosis Comments COMPLETE BLOOD COUNT Routine 12/11/2024 5:15 AM EDT Unspecified atrial fibrillation (CMS/HCC) Type 1 diabetes mellitus, presymptomatic, unspecified Chronic systolic (congestive) heart failure B-TYPE NATRIURETIC PEPTIDE Routine 12/11/2024 5:15 AM EDT Unspecified atrial fibrillation (CMS/HCC) Type 1 diabetes mellitus, presymptomatic, unspecified Chronic systolic (congestive) heart failure BASIC METABOLIC PANEL Routine 12/11/2024 5:15 AM EDT Unspecified atrial fibrillation (CMS/HCC) Type 1 diabetes mellitus, presymptomatic, unspecified Chronic systolic (congestive) heart failure documented in this encounter Results * (ABNORMAL) B-type natriuretic peptide (12/11/2024 5:15 AM EDT) BNP 134(H) <=100 pcg/mL LAB CHEMISTRY METHOD 12/11/2024 10:[address] [facility] Blood Venous blood specimen / Unknown Venipuncture / Unknown 12/11/2024 5:15 AM EDT 12/11/2024 9:28 AM EDT us Josh Dumont MD LAB BLOOD ORDERABLES Final R esult [facility] [address] [place] [address], * (ABNORMAL) Basic metabolic panel (12/11/2024 5:15 AM EDT) Pathologist [facility] Sodium 136 133 - 145 mmol/L LAB CHEMISTRY METHOD 12/11/2024 10:[address] [facility] Potassium 4.6 3.5 - 5.5 mmol/L LAB CHEMISTRY METHOD 12/11/2024 10:[address] [facility] Chloride 98 96 - 110 mmol/L LAB CHEMISTRY METHOD 12/11/2024 10:[address] [facility] CO2 29 21 - 32 mmol/L LAB CHEMISTRY METHOD 12/11/2024 10:[address] [facility] Anion Gap 9 3 - 11 LAB CHEMISTRY METHOD 12/11/2024 10:[address] [facility] Glucose 165(H) 70 - 100 mg/dL LAB CHEMISTRY METHOD 12/11/2024 10:[address] [facility] BUN 23 5 - 25 mg/dL LAB CHEMISTRY METHOD 12/11/2024 10:[address] [facility] Creatinine 1.14 0.70 - 1.30 mg/dL LAB CHEMISTRY METHOD 12/11/2024 10:21 AM EDT [facility] eGFR 70 >=60 mL/min/1. 73m2 LAB CHEMISTRY METHOD 12/11/2024 10:21 AM EDT [facility] Comment:Calculation based on the??Chronic Kidney Disease Epidemiology Collaboration (CKD-EPI) equation refit??without adjustment for race. BUN/Creatinine Ratio 20.2 LAB CHEMISTRY METHOD 12/11/2024 10:21 AM EDT [facility] Calcium 9.5 8.5 - 10.5 mg/dL LAB CHEMISTRY METHOD 12/11/2024 10:21 AM EDT [facility] Blood Venous blood specimen / Unknown Venipuncture / Unknown 12/11/2024 5:15 AM EDT 12/11/2024 9:28 AM EDT us Josh Dumont MD LAB BLOOD ORDERABLES Final R esult [facility] [address] [place] [address], * (ABNORMAL) Complete blood count (12/11/2024 5:15 AM EDT) WBC 10.1 4.8 - 10.8 K/mcL LAB HEMETOLOGY METHOD 12/11/2024 9:42 AM T [facility] RBC 4.40(L) 4.50 - 5.50 M/mcL LAB HEMETOLOGY METHOD 12/11/2024 9:42 AM EDT [facility] Hemoglobin 11.6(L) 13.5 - 17.5 g/dL LAB HEMETOLOGY METHOD 12/11/2024 9:42 AM T [facility] Hematocrit 37.2(L) 42.0 - 54.0 % LAB HEMETOLOGY METHOD 12/11/2024 9:42 AM EDT [facility] MCV 85.5 79.0 - 98.0 FL LAB HEMETOLOGY METHOD 12/11/2024 9:42 AM EDT [facility] MCH 26.7(L) 27.0 - 32.0 pcg LAB HEMETOLOGY METHOD 12/11/2024 9:42 AM EDT [facility] MCHC 31.2(L) 32.0 - 37.0 g/dL LAB HEMETOLOGY METHOD 12/11/2024 9:42 AM EDT [facility] RDW 17.2(H) 11.0 - 15.0 % LAB HEMETOLOGY METHOD 12/11/2024 9:42 AM EDT [facility] Platelets 306 130 - 400 K/mcL LAB HEMETOLOGY METHOD 12/11/2024 9:42 AM EDT [facility] MPV 10.3 7.0 - 11.0 FL LAB HEMETOLOGY METHOD 12/11/2024 9:42 AM EDT [facility] NRBC 0.0 <1.0 % LAB HEMETOLOGY METHOD 12/11/2024 9:42 AM EDT [facility] NRBC Absolute 0.00 <0.10 K/mcL LAB HEMETOLOGY METHOD 12/11/2024 9:42 AM T [facility] Blood Venous blood specimen / Unknown Venipuncture / Unknown 12/11/2024 5:15 AM EDT 12/11/2024 9:28 AM EDT us Josh Dumont MD LAB BLOOD ORDERABLES Final R esult [facility] [address] [place] [address], documented in this encounter Visit Diagnoses Diagnosis Unspecified atrial fibrillation (CMS/HCC) Type 1 diabetes mellitus, presymptomatic, unspecified Chronic systolic (congestive) heart failure documented in this encounter Care Teams Clammer Relationship Specialty Start Date End Date Josh Dumont MD [address] [place] [id number] PCP - General Family Medicine 11/29/24 documented as of this encounter
--- OUTSIDE RECORDS SUMMARY | 2024-12-19 00:56 | XMS_ITS | Encounter Summary ---
Author Organization [facility] Address [address] [place] [address] Care Team Providers Care Public Health Doctor Name Role Phone Josh Dumont MD Primary Care Provider [phone] Encounter Details Date Type Department Care Team (Latest Contact Info) Description 12/09/2024 Lab Requisition [facility] [address] [place] [address] Josh Dumont MD [facility] [place] [address] Type 2 diabetes mellitus without complications (CMS/[facility]) Social History Tobacco Use Types Packs/Day Years [...] Associated Diagnosis Comments COMPLETE BLOOD COUNT Routine 12/09/2024 5:18 AM EDT Type 2 diabetes mellitus without complications BASIC METABOLIC PANEL Routine 12/09/2024 5:18 AM EDT Type 2 diabetes mellitus without complications documented in this encounter Results * (ABNORMAL) Basic metabolic panel (12/09/2024 5:18 AM EDT) Sodium 136 133 - 145 mmol/L LAB CHEMISTRY METHOD 12/09/2024 11:43 AM EDT [facility] Potassium 5.0 3.5 - 5.5 mmol/L LAB CHEMISTRY METHOD 12/09/2024 11:43 AM EDT [facility] Chloride 100 96 - 110 mmol/L LAB CHEMISTRY METHOD 12/09/2024 11:43 AM [facility] CO2 30 21 - 32 mmol/L LAB CHEMISTRY METHOD 12/09/2024 11:43 AM [facility] Anion Gap 6 3 - 11 LAB CHEMISTRY METHOD 12/09/2024 11:43 AM [facility] Glucose 202(H) 70 - 100 mg/dL LAB CHEMISTRY METHOD 12/09/2024 11:43 AM [facility] BUN 24 5 - 25 mg/dL LAB CHEMISTRY METHOD 12/09/2024 11:43 AM [facility] Creatinine 1.17 0.70 - 1.30 mg/dL LAB CHEMISTRY METHOD 12/09/2024 11:43 AM [facility] eGFR 68 >=60 mL/min/1. 73m2 LAB CHEMISTRY METHOD 12/09/2024 11:43 AM [facility] Comment:Calculation based on the??Chronic Kidney Disease Epidemiology Collaboration (CKD-EPI) equation refit??without adjustment for race. BUN/Creatinine Ratio 20.5 LAB CHEMISTRY METHOD 12/09/2024 11:43 AM [facility] Calcium 9.0 8.5 - 10.5 mg/dL LAB CHEMISTRY METHOD 12/09/2024 11:43 AM [facility] Blood Venous blood specimen / Unknown Venipuncture / Unknown 12/09/2024 5:18 AM EDT 12/09/2024 10:44 AM EDT us Josh Dumont MD LAB BLOOD ORDERABLES Final R esult [facility] [address] [place] [address], * (ABNORMAL) Complete blood count (12/09/2024 5:18 AM EDT) WBC 10.7 4.8 - 10.8 K/mcL LAB HEMETOLOGY METHOD 12/09/2024 11:15 AM [facility] RBC 4.20(L) 4.50 - 5.50 M/mcL LAB HEMETOLOGY METHOD 12/09/2024 11:15 AM [facility] Hemoglobin 11.2(L) 13.5 - 17.5 g/dL LAB HEMETOLOGY METHOD 12/09/2024 11:15 AM [facility] Hematocrit 35.4(L) 42.0 - 54.0 % LAB HEMETOLOGY METHOD 12/09/2024 11:15 AM [facility] MCV 85.1 79.0 - 98.0 FL LAB HEMETOLOGY METHOD 12/09/2024 11:15 AM [facility] MCH 26.9(L) 27.0 - 32.0 pcg LAB HEMETOLOGY METHOD 12/09/2024 11:15 AM [facility] MCHC 31.6(L) 32.0 - 37.0 g/dL LAB HEMETOLOGY METHOD 12/09/2024 11:15 AM [facility] RDW 17.3(H) 11.0 - 15.0 % LAB HEMETOLOGY METHOD 12/09/2024 11:15 AM [facility] Platelets 268 130 - 400 K/mcL LAB HEMETOLOGY METHOD 12/09/2024 11:15 AM [facility] MPV 10.8 7.0 - 11.0 FL LAB HEMETOLOGY METHOD 12/09/2024 11:15 AM [facility] NRBC 0.0 <1.0 % LAB HEMETOLOGY METHOD 12/09/2024 11:15 AM [facility] NRBC Absolute 0.00 <0.10 K/mcL LAB HEMETOLOGY METHOD 12/09/2024 11:15 AM [facility] Blood Venous blood specimen / Unknown Venipuncture / Unknown 12/09/2024 5:18 AM EDT 12/09/2024 10:44 AM EDT Josh Dumont MD LAB BLOOD ORDERABLES Final R esult Performing Organization Address City/State/[facility] Co de Phone Number [facility] [address] [place] [address], documented in this encounter Visit Diagnoses Diagnosis Type 2 diabetes mellitus without complications documented in this encounter Care Teams Public Health Doctor Relationship Specialty Start Date End Date Josh Dumont MD [address] [place] [address] PCP - General Family Medicine 11/29/24 documented as of this encounter
--- OUTSIDE RECORDS SUMMARY | 2024-12-19 00:56 | XMS_ITS | Continuity of Care Document ---
Author Organization [facility] ter Address [address] [place] [address]- Care Team Providers Care Human Resources Manager Manufacturing Name Role Phone Rafat CAREY, Almas Lea Primary Care Physician Encounter [place] Date(s): 12/17/24 - 12/17/[address] [address]- Discharge Disposition: A-D/C Home Attending Physician: Edin Dodson MD Admitting Physician: Edin Dodson MD Referring Physician: Not on Staff, Referring MD Encounter Type: Disch ES Allergies, Adverse Reactions, Alerts No Known Allergies Immunizations Given and Recorded Vaccine Date Status Refusal Reason influenza virus vaccine, inactivated 08/08/24 Give n influenza virus vaccine, inactivated 08/30/23 Give n influenza virus vaccine, inactivated 07/13/22 Give n influenza virus vaccine, inactivated 06/18/20 Give n influenza virus vaccine, inactivated 06/24/19 Give n influenza virus vaccine, inactivated 1 06/17/18 Re corded influenza virus vaccine, inactivated 06/12/18 Vu rded influenza virus vaccine, inactivated 10/04/17 Give n influenza virus vaccine, inactivated 07/10/17 Give n influenza virus vaccine, inactivated 08/17/16 Give n influenza virus vaccine, inactivated 10/14/13 Give n pneumococcal 20-valent conjugate vaccine 08/30/23 Given [id number] 12y+ bivalent booster vax 07/13/22 Given SARS-CoV-2 (COVID-19) mRNA-1273 vaccine 07/09/21 R ecorded SARS-CoV-2 (COVID-19) mRNA-1273 vaccine 11/11/20 R ecorded SARS-CoV-2 (COVID-19) mRNA-1273 vaccine 10/14/20 R ecorded pneumococcal 23-valent vaccine 01/13/17 Given pneumococcal 23-valent vaccine 10/08/08 Recorded tetanus/diphtheria/pertussis, acel(Tdap) 10/19/15 Given Pneumococcal Vaccine (oldterm) 2 10/08/08 Given 1Location History: [facility] Comment: lot # [id number] expires: March, Problem List Condition Confirmation Course Effective Dates Status Health Status Informant Morbid obesity with BMI of 40.0-44.9, adult Confirmed Active Caregiver role strain Confirmed Active Cataract Confirmed 03/2019 Active Chronic atrial fibrillation on Xarelto Confirmed Active Chronic diastolic heart failure Confirmed Active Cognitive changes Confirmed Active Degenerative spondylolisthesis 1 Confirmed 05/31/11 Active Diabetic nephropathy with microalbuminuria Confirmed Active Anticoagulated Confirmed Active GERD (gastroesophageal reflux disease) Confirmed Active Secondary hypercoagulable state Confirmed Active Hyperlipidemia Confirmed Active Hypertension Confirmed Active Herniated disc 2 Confirmed 05/31/11 Active Low back pain with radiation Confirmed Active Depression with anxiety Confirmed Active Diabetic neuropathy Confirmed Active Obese class I Confirmed Active Obstructive sleep apnea 3 Confirmed Active Pleural effusion Confirmed Active Falls frequently Confirmed Active Pain of shoulder after trauma Confirmed Active Type 2 diabetes mellitus with neuropathy and nephropathy, uncontrolled Confirmed Active 1Per MRI 05/31/2011 at [facility]. L5-S1 grade 1 anterior spondylolisthesis with milddisc bulge causing marked foraminal stenosis with encroachment on L5 nerve root 2Per MRI 05/31/2011 at L2-3 and L3-4 306/14: Positional dependent DON. AHI index was 9.3 per hour. The supine AHI is 72.0 per hour. Vital Signs Most recent to oldest [Reference Range]: 1 Oxygen Saturation [94-100 %] 96 % (12/17/24 9:14 AM) Pulse Rate [55-90 bpm] 89 bpm (12/17/24 9:14 AM) Blood Pressure [90-138/55-84 mm Hg] 102/ 76mm Hg (12/17/24 9:14 AM) Respiratory Rate [16-30 br/min] 18 br/mi n (12/17/24 9:14 AM) Temperature [96.8-100.4 DegF] 98.3 DegF (12/17/24 9:14 AM) Mode of Delivery (Oxygen) Room air (12/17/24 9:14 AM) Blood pressure sites Arm, right (12/17/24 9:14 AM) Temperature Route Oral (12/17/24 9:14 AM) Social History Social History Type Response Smoking Status 10 or more cigarette s (1/2 pack or more)/day in last 30 days; Interested in cessation: No; Patient wants NRT during admission Yes entered on: 08/04/24 Sex Sex Representation Male (finding) Note * Pat Mckay: PERFORM Event Display: Patient Education Leaflets Authored Date: [id number] Abrasions ?? [id number] Abrasions Abrasions are skin scrapes. Their treatment depends on how large and deep the abrasion is. Home care You may be prescribed an antibiotic cream or ointment to apply to the wound. This helps prevent infection. Follow instructions when using this medicine. General care ??? To care for the abrasion, do the following each day for as long as directed by your healthcare provider: o If you were given a bandage, change it once a day. If your bandage sticks to the wound, soak it in warm water until it loosens. o Wash the area with soap and warm water. You may do this in a sink or under a tub faucet or shower. Rinse off the soap. Then pat the area dry witha clean towel. o If antibiotic ointment or cream was prescribed, reapply it to the wound as directed. Cover the wound with a fresh nonstick bandage. If the bandage becomes wet or dirty, change it as soon as possible. o Some antibiotic ointments or cream can cause an allergic reaction or dermatitis.This may cause redness, itching, or hives. If this occurs, stop using the ointment right away and wash off any remaining ointment. You may need to take some allergy medicine to relieve symptoms. ??? You may use acetaminophen or ibuprofen to control pain unless another pain medicine was prescribed.??Talk with your healthcare provider before using these medicines if you have chronic liver or kidneydisease, or ever had a stomach ulcer or digestive tract bleeding. Don???t use ibuprofen in childrenyounger than 6 months old. ??? Most skin wounds heal within 10 days. But an infection may occur even with treatment. So it???s important to watch the wound for signs of infection as listed below. ?? Follow-up care Follow up with your healthcare provider as advised. ?? When to get medical advice Call your healthcare provider right away if any of these occur: ??? Fever of 100.4??F (38??C) or higher, or as advised by your provider ??? Increasing pain, redness, swelling, or fluid leaking from the wound ??? Bleeding from the wound that doesn't stop after a few minutes of steady, firm pressure ??? Decreased ability to move any body part near the wound ?? Last Reviewed Date: 2022 00:00:00 ?? [id number] [employer]. All rights reserved. This information is not intended as a substitute for professional medical care. Always follow your healthcare professional's instructions. ?? Patient Care team information Care Team Personnel Name: Taryn Brito RN Position: [facility] RN Member Role: Primary Care Nurse Name: Femi Shaikh RN Position: [facility] RN Member Role: Primary Care Nurse Name: Lance Reyes RN Position: [facility] RN Member Role: Primary Care Nurse Name: Iza Montes RN Position: [facility] RN Supv Member Role: Primary Care Nurse Name: Pretty Kaufman RN Position: [facility] RN Member Role: Primary Care Nurse Name: Edvin David RN Position: [facility] RN Member Role: Primary Care Nurse Name: Sebas Bahena RN Position: [facility] RN Member Role: Primary Care Nurse Name: Aristides Veliz RN Position: [facility] RN Member Role: Primary Care Nurse Name: Swetha Henderson RN Position: [facility] AMB Nurse Member Role: Primary Care Nurse Name: Matthew Mehta RN Position: [facility] RN Member Role: Primary Care Nurse Name: Reginald Cid RN Position: [facility] RN Member Role: Primary Care Nurse Name: Sanjana Newell NP Position: [facility] PCO Associate Professional Member Role: Primary Care Nurse Address: [address] [place] [address]- Telecom: Name: Taryn Marie RN Position: [facility] RN Member Role: Primary Care Nurse Name: Andreas Kidd RN Position: [facility] SN RN Member Role: Primary Care Nurse Name: Mayuri Goss RN Position: [facility] RN Member Role: Primary Care Nurse Name: María Rivas RN Position: [facility] RN Member Role: Primary Care Nurse Name: Conchis Monzon RN Position: [facility] SN RN Member Role: Primary Care Nurse Name: Tree Pantoja RN Position: [facility] RN Member Role: Primary Care Nurse Name: Kristina [place] RN Position: [facility] RN Member Role: Primary Care Nurse Name: Sofiya Card RN Position: [facility] SN RN Member Role: Primary Care Nurse Name: Randy Kruse RN Position: [facility] RN Member Role: Primary Care Nurse Name: Helga Aguiar RN Position: [facility] ED RN W/OE and Tasks Member Role: Primary Care Nurse Name: Kristie King RN Position: [facility] RN Member Role: Primary Care Nurse Name: Nesha Soriano RN Position: [facility] RN Member Role: Primary Care Nurse Name: Merced Malhotra RN Position: [facility] RN Member Role: Primary Care Nurse Name: Tate Magaña RN Position: [facility] RN Member Role: Primary Care Nurse Name: Nafisa Rodriguez RN Position: [facility] RN Member Role: Primary Care Nurse Name: Janel Stuart RN Position: [facility] Hospital Motorized Squad Lieutenant Member Role: Primary Care Nurse Name: Nafisa Mathur RN Position: [facility] Hospital Motorized Squad Lieutenant Member Role: Primary Care Nurse Name: Almas Douglass MD Position: [facility] Physician - Primary Care Member Role: PCP Address: [address] [place] [address] [place] [address]- Telecom: Name: Tate Tobar RN Position: [facility] RN Member Role: Primary Care Nurse Name: Clifton Palma RN Position: [facility] ED RN W/OE and Tasks Member Role: Primary Care Nurse Name: Serge Heath RN Position: [facility] SN RN Member Role: Primary Care Nurse Name: Addi Zhang RN Position: [facility] RN Member Role: Primary Care Nurse Name: Josh Birch RN Position: [facility] RN Member Role: Primary Care Nurse Name: Daly Hodges RN Position: [facility] RN Member Role: Primary Care Nurse Care Team Related Persons Name: JUDY DUARTE Name: BENI CHAND Name: ROCKY SARKAR Name: ILAN SARKAR Name: TABITHA SARKAR Insurance Providers Guarantor name: CHARLIE SARKAR Health Plan Information #: 1 Payer: [employer] [facility] Member Number: [id number] Policy Number: NA Group Number: [id number] Health Plan Information #: 2 Payer: [facility] Member Number: [id number] Policy Number: NA Group Number: [id number]
[2024-12-19 01:12] LABS: Anion Gap 21 (12-20); Blood Urea Nitrogen 29 mg/dL (9-16); Calcium 8.3 mg/dL (8.4-10.2); Carbon Dioxide 18 mmol/L (22-29); Chloride 96 mmol/L (96-108); Creatinine Clr Calc Pharmacy 55.9; Estimated Glomerular Filt Rate 46; Glucose Random 718 mg/dL (60-115); Sodium 131 mmol/L (135-145)
[2024-12-19 01:22] LABS: Glucose, Whole Blood 536 mg/dL (60-115)
--- NOTE | 2024-12-19 01:24 | PC.NURSE ---
multiple poc unable to get results, reading 600, blood draw, resulted [id number], per poc at 01:17 reading 536, titrated per protocol. provider aware.
[2024-12-19] MEDS: Lactated Ringers 1,000 ML 999 ML IV ×2 (01:34→04:06)
[2024-12-19 02:10] LABS: Glucose, Whole Blood 584 mg/dL (60-115)
--- NOTE | 2024-12-19 02:39 | ED.GENADULT ---
HPI - General Adult General Chief complaint: Altered Mental Status Stated complaint: hx of diabetes, high sugar reading Time Seen by Provider: 12/18/24 22:22 Source: patient, RN notes reviewed and old records reviewed Mode of arrival: EMS Limitations: altered mental status History of Present Illness ED Provider: Josh PAZ narrative: 69-year-old male with past medical history significant for diabetes, atrial fibrillation on Xarelto, unspecified psychiatric illness presents for evaluation of agitation. The patient is unsure why he was brought to the emergency department. He did arrive on a section 12 that police initiated while at his house. The patient's son Alvaro called 911 due to aggressive behavior from the patient. The patient's son, the patient has had declining mental health since last April, Over the last 1-2 weeks he has had increasing emily, he has not been sleeping and has been agitated and aggressive The patient has been noncompliant with his medications over the last few months Per the patient's son, the patient has been in and out of hospitals and rehabs over the last few months The patient was also at [facility] yesterday He was therefore cough and was ultimately discharged The patient's son reports that he called 911 because the patient became aggressive and trying to hit him which is unusual for the patient Related Data Allergies Allergy/AdvReac Type Severity Reaction Status Date / Time No Known Allergies Allergy Verified 12/18/24 22:23 Review of Systems Constitutional: Constitutional: Denies body ache(s), Denies chills, Denies fever(s), Denies frequent falls and Denies headache(s) Eyes: Eyes: Denies blurry vision ENT: Denies vertigo, Denies dizziness and Denies headache(s) Cardiovascular: Cardiovascular: Denies chest pain and Denies dyspnea Respiratory: Respiratory: Denies cough and Denies dyspnea Gastrointestinal: Gastrointestinal: Denies abdominal pain, Denies nausea and Denies vomiting Musculoskeletal: Musculoskeletal: Denies back pain Integumentary/Breasts: Skin/Breast: Denies rash Neurologic: Denies vertigo, Denies dizziness, Denies frequent falls and Denies headache(s) Psychiatric: Psychiatric: Denies anxiety PMFSH Social History Social History Advance Directives: No Advance Directives Information Provided: Yes Do you have a plan to hurt others: No Plan Physical Exam ED Vital Signs: Vital Signs - 24 hr 12/18/24 22:21 12/19/24 00:13 12/19/24 00:25 Temperature 98.2 F Pulse Rate 129 H 89 108 H Respiratory Rate 20 21 H 24 H Blood Pressure 122/100 H 140/72 H Pulse Oximetry 95 97 Oxygen Delivery Method Room Air Room Air 12/19/24 02:04 Temperature Pulse Rate 93 Respiratory Rate 22 H Blood Pressure 135/68 Pulse Oximetry 95 Oxygen Delivery Method Room Air BMI result Body Mass Index 35.4 Const General: healthy appearing, comfortable, no acute distress, alert and awake Nutritional Appearance: well nourished Orientation/consciousness: patient oriented x3 HENMT Head: Yes normocephalic and Yes atraumatic Eyes Eyelids: Yes eyelids normal Conjunctivae: conjunctivae normal Sclerae: sclerae normal Corneas: corneas normal Pupils: Equal, round and reactive pupils present EOM: EOMs intact bilaterally Neck Neck: Yes full ROM Resp Effort & Inspection: normal respiratory effort, able to speak in complete sentences, no audible wheezes and not labored Auscultation: clear to auscultation bilaterally Cardio Rate: tachycardic Rhythm: abnormal rhythm irregularly irregular GI Inspection: No distended Palpation (GI): Soft to palpation, not firm, nontender, no guarding and not rigid Skin General skin exam: elasticity normal Neuro General: patient oriented x3 Cranial nerves: Yes Equal, round and reactive pupils present and Yes Bilaterally intact EOM present Cognition (Neuro): normal cognition Extrem Other: Moving all extremities well without any obvious deformities Medications Administered Generic Name Dose Route Start Last Admin Trade Name Freq PRN Reason Stop Dose Admin Insulin Human Regular 100 unit in 100 mls @ 6 mls/hr 12/18/24 23:15 12/19/24 02:15 Myxredlin IVCONT 3 unit/hr .[id number] SUSANA 3 mls/hr Titration Protocol 6 UNIT/HR Discontinued Medications Generic Name Dose Route Start Last Admin Trade Name Freq PRN Reason Stop Dose Admin Albuterol Sulfate 2.5 mg/ 0 mg 12/19/24 00:06 12/19/24 00:10 Albuterol/Ipratropium 3 ml INHALE 12/19/24 00:07 5 dose ONCE ONE Administration Sodium Chloride 1,000 mls @ 999 mls/hr 12/18/24 23:00 12/19/24 01:34 Ns IV 12/19/24 00:00 Infused .Q1H1M SUSANA Infusion Lactated Ringer's 1,000 mls @ 999 mls/hr 12/18/24 23:15 12/19/24 01:34 Lr IV 12/19/24 00:15 Infused .Q1H1M SUSANA Infusion Lactated Ringer's 1,000 mls @ 999 mls/hr 12/19/24 01:30 12/19/24 02:39 Lr IV 12/19/24 02:30 Infused .Q1H1M SUSANA Infusion Insulin Human Regular 10 unit 12/18/24 22:48 12/18/24 23:16 Insulin Regular, Human 100 Unit/Ml 10 Ml Vial IVPUSH 12/18/24 22:49 10 unit ONCE ONE Administration Lorazepam 2 mg 12/19/24 00:22 12/19/24 00:35 Lorazepam 2 Mg/Ml Vial IVPUSH 12/19/24 00:23 2 mg ONCE ONE Administration Medical Decision Making Medical Decision Making MDM Narrative: 69-year-old male presents for evaluation of agitation and altered mental status per his son. The patient is on Xarelto, there was no reported head trauma, however given any alteration in mental status a CT scan of the brain was ordered which does not show any intracranial hemorrhage. The patient is alert and oriented x3, however he does appear to be somewhat confused. The patient appears to have been having a declining mental status for last few months in his currently noncompliant with the psychiatric medications. The patient's glucose was over 600, he was found to be in DKA with an anion gap of 23, glucose of 805. His sodium of 131 is within normal limits once corrected for his glucose. Potassium of 4.5 is within normal limits. CO2 is low at 18 likely related to diabetic ketoacidosis. The patient's BUN unsteady while in the creatinine of 1.72, likely reflecting ANITA. Patient's beta hydroxybutyrate is 0.29 which was elevated Differential Diagnosis Differential Diagnoses: The differential diagnosis associated with the presentation includes Admission/Observation Consideration of admission/observation: Escalation of care including admission/observation considered Patient will require admission for DKA Lab Data [facility] Lab Attestation statement: I reviewed the patient's lab results. As above 12/18/24 22:36 12/19/24 00:38 Labs: Lab Results 12/18/24 12/18/24 12/18/24 Range/Units 22:25 22:36 22:41 WBC 10.6 (4.8-10.8) X10*3/uL RBC 4.23 L (4.60-5.80) X10*6/uL Hgb 11.3 L D (14.0-18.0) g/dl Hct 34.9 L (42.0-52.0) % MCV 82.5 (80.0-98.0) fL MCH 26.7 L (27.0-33.0) pg MCHC 32.4 (31.0-36.0) g/dl RDW 17.3 H (11.0-16.0) % Plt Count 333 D (160-400) X10*3/uL MPV 10.9 (9.4-12.4) fL Immature Gran % (Auto) 0.8 H (0.0-0.4) % Neut % (Auto) 96.9 H (45-73) % Lymph % (Auto) 1.5 L (20-40) % [place] % (Auto) 0.7 L (2-11) % Eos % (Auto) 0.0 (0-4) % Baso % (Auto) 0.1 (0-2) % Lymph # (Auto) 0.2 L (1.2-4.9) X10*3/uL [place] # (Auto) 0.1 (0.1-1.2) X10*3/uL Eos # (Auto) 0.0 (0.0-0.4) X10*3/uL Baso # (Auto) 0.0 (0.0-0.2) X10*3/uL Abs Immat Gran (auto) 0.08 H (0.00-0.03) X10*3/uL Absolute Neuts (auto) 10.3 H (2.0-8.3) x10*3/uL Absolute Nucleated RBC 0.000 (0.0-0.012) X10*3/uL Nucleated RBC % (auto) 0.0 (0.0-0.2) /100WBC Smear Tech's Comments VERIFIED Hold Blue Top VBG pH 7.34 (7.32-7.43) VBG pCO2 33 mmHg VBG pO2 73 mmHg VBG HCO3 18 L (22-26) mmol/L VBG O2 Saturation 95.0 % VBG Base Excess -6.1 mmol/L Sodium 131 L (135-145) mmol/L Potassium 4.5 (3.3-5.1) mmol/L Chloride 95 L (96-108) mmol/L Carbon Dioxide 18 L (22-29) mmol/L Anion Gap 23 H (12-20) BUN 31 H (9-16) mg/dL Creatinine 1.72 H (0.5-1.4) mg/dL Estim Creat Clear Calc 49.0 Estimated GFR 40 POC Glucose > 600 H* (60-115) mg/dL Random Glucose 805 H* (60-115) mg/dL Calcium 8.8 D (8.4-10.2) mg/dL Total Bilirubin 0.4 (0.0-1.0) mg/dL AST 15 (5-37) U/L ALT 11 (0-40) U/L Alkaline Phosphatase 108 (39-117) U/L Troponin I High Sens 8.0 (<3.5-35.0) ng/L Total Protein 6.9 (6.5-8.0) g/dL Albumin 3.8 (3.5-5.0) g/dL Beta-Hydroxybutyrate 0.29 H (0.02-0.27) mmol/L Urine Color Yellow Urine Appearance Clear Urine pH 5.0 (5.0-9.0) Ur Specific [place] >= 1.030 H (1.005-1.025) Urine Protein 100 (2+) H (Neg-Trace) mg/dL Urine Glucose (UA) >=1000 H (Negative) mg/dL Urine Ketones Negative (Negative) mg/dL Urine Blood Small (1+) H (Negative) Urine Nitrite Negative (Negative) Ur Leukocyte Esterase Negative (Negative) Urine RBC 3-5 H (0-2) /HPF Urine WBC 0-5 (0-5) /HPF Ur Squamous Epith Cells 0-2 (0-2) /HPF Urine Bacteria None Seen (None Seen) Hyaline Casts 0-2 (0-2) /LPF Urine Opiates Screen POSITIVE H (Not Detect) Ur Buprenorphine Scrn Not Detected (Not Detect) ng/mL Ur Oxycodone Screen Not Detected (Not Detect) ng/mL Urine Methadone Screen Not Detected (Not Detect) ng/mL Urine Fentanyl Screen Not Detected (Not Detect) Ur Barbiturates Screen Not Detected (Not Detect) Ur Phencyclidine Scrn Not Detected (Not Detect) Ur Amphetamines Screen Not Detected (Not Detect) U Benzodiazepines Scrn Not Detected (Not Detect) Urine Cocaine Screen Not Detected (Not Detect) U Marijuana (THC) Screen Not Detected (Not Detect) Ethyl Alcohol < 10 mg/dL 12/18/24 12/18/24 12/19/24 Range/Units 22:51 23:24 00:24 WBC (4.8-10.8) X10*3/uL RBC (4.60-5.80) X10*6/uL Hgb (14.0-18.0) g/dl Hct (42.0-52.0) % MCV (80.0-98.0) fL MCH (27.0-33.0) pg MCHC (31.0-36.0) g/dl RDW (11.0-16.0) % Plt Count (160-400) X10*3/uL MPV (9.4-12.4) fL Immature Gran % (Auto) (0.0-0.4) % Neut % (Auto) (45-73) % Lymph % (Auto) (20-40) % [place] % (Auto) (2-11) % Eos % (Auto) (0-4) % Baso % (Auto) (0-2) % Lymph # (Auto) (1.2-4.9) X10*3/uL [place] # (Auto) (0.1-1.2) X10*3/uL Eos # (Auto) (0.0-0.4) X10*3/uL Baso # (Auto) (0.0-0.2) X10*3/uL Abs Immat Gran (auto) (0.00-0.03) X10*3/uL Absolute Neuts (auto) (2.0-8.3) x10*3/uL Absolute Nucleated RBC (0.0-0.012) X10*3/uL Nucleated RBC % (auto) (0.0-0.2) /100WBC Smear Tech's Comments Hold Blue Top SEE NOTE VBG pH (7.32-7.43) VBG pCO2 mmHg VBG pO2 mmHg VBG HCO3 (22-26) mmol/L VBG O2 Saturation % VBG Base Excess mmol/L Sodium (135-145) mmol/L Potassium (3.3-5.1) mmol/L Chloride (96-108) mmol/L Carbon Dioxide (22-29) mmol/L Anion Gap (12-20) BUN (9-16) mg/dL Creatinine (0.5-1.4) mg/dL Estim Creat Clear Calc Estimated GFR POC Glucose > 600 H* > 600 H* (60-115) mg/dL Random Glucose (60-115) mg/dL Calcium (8.4-10.2) mg/dL Total Bilirubin (0.0-1.0) mg/dL AST (5-37) U/L ALT (0-40) U/L Alkaline Phosphatase (39-117) U/L Troponin I High Sens (<3.5-35.0) ng/L Total Protein (6.5-8.0) g/dL Albumin (3.5-5.0) g/dL Beta-Hydroxybutyrate (0.02-0.27) mmol/L Urine Color Urine Appearance Urine pH (5.0-9.0) Ur Specific [place] (1.005-1.025) Urine Protein (Neg-Trace) mg/dL Urine Glucose (UA) (Negative) mg/dL Urine Ketones (Negative) mg/dL Urine Blood (Negative) Urine Nitrite (Negative) Ur Leukocyte Esterase (Negative) Urine RBC (0-2) /HPF Urine WBC (0-5) /HPF Ur Squamous Epith Cells (0-2) /HPF Urine Bacteria (None Seen) Hyaline Casts (0-2) /LPF Urine Opiates Screen (Not Detect) Ur Buprenorphine Scrn (Not Detect) ng/mL Ur Oxycodone Screen (Not Detect) ng/mL Urine Methadone Screen (Not Detect) ng/mL Urine Fentanyl Screen (Not Detect) Ur Barbiturates Screen (Not Detect) Ur Phencyclidine Scrn (Not Detect) Ur Amphetamines Screen (Not Detect) U Benzodiazepines Scrn (Not Detect) Urine Cocaine Screen (Not Detect) U Marijuana (THC) Screen (Not Detect) Ethyl Alcohol mg/dL 12/19/24 12/19/24 12/19/24 Range/Units 00:38 01:17 02:05 WBC (4.8-10.8) X10*3/uL RBC (4.60-5.80) X10*6/uL Hgb (14.0-18.0) g/dl Hct (42.0-52.0) % MCV (80.0-98.0) fL MCH (27.0-33.0) pg MCHC (31.0-36.0) g/dl RDW (11.0-16.0) % Plt Count (160-400) X10*3/uL MPV (9.4-12.4) fL Immature Gran % (Auto) (0.0-0.4) % Neut % (Auto) (45-73) % Lymph % (Auto) (20-40) % [place] % (Auto) (2-11) % Eos % (Auto) (0-4) % Baso % (Auto) (0-2) % Lymph # (Auto) (1.2-4.9) X10*3/uL [place] # (Auto) (0.1-1.2) X10*3/uL Eos # (Auto) (0.0-0.4) X10*3/uL Baso # (Auto) (0.0-0.2) X10*3/uL Abs Immat Gran (auto) (0.00-0.03) X10*3/uL Absolute Neuts (auto) (2.0-8.3) x10*3/uL Absolute Nucleated RBC (0.0-0.012) X10*3/uL Nucleated RBC % (auto) (0.0-0.2) /100WBC Smear Tech's Comments Hold Blue Top VBG pH (7.32-7.43) VBG pCO2 mmHg VBG pO2 mmHg VBG HCO3 (22-26) mmol/L VBG O2 Saturation % VBG Base Excess mmol/L Sodium 131 L (135-145) mmol/L Potassium 4.0 (3.3-5.1) mmol/L Chloride 96 (96-108) mmol/L Carbon Dioxide 18 L (22-29) mmol/L Anion Gap 21 H (12-20) BUN 29 H (9-16) mg/dL Creatinine 1.51 H (0.5-1.4) mg/dL Estim Creat Clear Calc 55.9 Estimated GFR 46 POC Glucose 536 H* 584 H* (60-115) mg/dL Random Glucose 718 H* (60-115) mg/dL Calcium 8.3 L (8.4-10.2) mg/dL Total Bilirubin (0.0-1.0) mg/dL AST (5-37) U/L ALT (0-40) U/L Alkaline Phosphatase (39-117) U/L Troponin I High Sens (<3.5-35.0) ng/L Total Protein (6.5-8.0) g/dL Albumin (3.5-5.0) g/dL Beta-Hydroxybutyrate (0.02-0.27) mmol/L Urine Color Urine Appearance Urine pH (5.0-9.0) Ur Specific [place] (1.005-1.025) Urine Protein (Neg-Trace) mg/dL Urine Glucose (UA) (Negative) mg/dL Urine Ketones (Negative) mg/dL Urine Blood (Negative) Urine Nitrite (Negative) Ur Leukocyte Esterase (Negative) Urine RBC (0-2) /HPF Urine WBC (0-5) /HPF Ur Squamous Epith Cells (0-2) /HPF Urine Bacteria (None Seen) Hyaline Casts (0-2) /LPF Urine Opiates Screen (Not Detect) Ur Buprenorphine Scrn (Not Detect) ng/mL Ur Oxycodone Screen (Not Detect) ng/mL Urine Methadone Screen (Not Detect) ng/mL Urine Fentanyl Screen (Not Detect) Ur Barbiturates Screen (Not Detect) Ur Phencyclidine Scrn (Not Detect) Ur Amphetamines Screen (Not Detect) U Benzodiazepines Scrn (Not Detect) Urine Cocaine Screen (Not Detect) U Marijuana (THC) Screen (Not Detect) Ethyl Alcohol mg/dL Independent Interpretation I performed an independent interpretation of an: EKG Interpretation: AFib with a rate of 111 beats minute. Discharge Plan Discharge Clinical Impression: Diabetic keto-acidosis Patient Disposition: Still a Patient Print Language: Romansh
[2024-12-19 03:18] LABS: Glucose, Whole Blood 545 mg/dL (60-115)
[2024-12-19 03:20] LABS: Venous Blood Gas Refer to POC result
[2024-12-19 03:23] LABS: VBG Base Excess -2.6 mmol/L; VBG HCO3 22 mmol/L (22-26); VBG pCO2 38 mmHg; VBG pH 7.37 (7.32-7.43); VBG pO2 77 mmHg
--- NOTE | 2024-12-19 03:30 | PC.NURSE ---
rate change confirmed Gracie.
[2024-12-19 03:34] LABS: Valproate < 12.5 mcg/mL (50.0-100.0)
[2024-12-19 03:36] LABS: Digoxin 0.4 ng/mL (0.8-2.0)
[2024-12-19 03:38] LABS: Anion Gap 17 (12-20); Blood Urea Nitrogen 29 mg/dL (9-16); Calcium 8.7 mg/dL (8.4-10.2); Carbon Dioxide 22 mmol/L (22-29); Chloride 97 mmol/L (96-108); Creatinine Clr Calc Pharmacy 62.5; Estimated Glomerular Filt Rate 53; Glucose Random 599 mg/dL (60-115); Potassium 3.9 mmol/L (3.3-5.1); Sodium 132 mmol/L (135-145)
--- NOTE | 2024-12-19 03:46 | MHC.EDTECH ---
Pt incontinent of large amount of urine. Pt cleaned and complete bedding change done. Condom cath placed per RN.
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
[2024-12-19] MEDS: Insulin Glargine,Hum.rec.anlog 100 UNIT/ML 10 ML VIAL 20 UNIT SUBCUT ×2 (04:06→20:44)
[2024-12-19 04:12] LABS: Glucose, Whole Blood 484 mg/dL (60-115)
--- NOTE | 2024-12-19 04:15 | PC.NURSE ---
continue insulin drip at the same rate at this time.
[2024-12-19 04:53] LABS: Magnesium 1.6 mg/dL (1.6-2.6)
[2024-12-19 05:07] LABS: TSH reflex Free T4 1.38 uIU/mL (0.32-4.0)
[2024-12-19 05:13] LABS: Glucose, Whole Blood 507 mg/dL (60-115)
--- NOTE | 2024-12-19 05:13 | PC.NURSE ---
per Dr. Messina stop insulin drip, medicated per orders.
[2024-12-19] MEDS: Insulin Regular, Human 100 UNIT/ML 10 ML VIAL 10 UNIT IVPUSH (05:25)
[2024-12-19] MEDS: Insulin Lispro 100 UNIT/ML 3 ML VIAL 10 UNIT SUBCUT (05:30)
--- NOTE | 2024-12-19 05:40 | PC.NURSE ---
medicated per mar. Per Dr. Messina no longer doing poc every hour.
[2024-12-19 05:58] LABS: Glucose, Whole Blood 411 mg/dL (60-115)
[2024-12-19 06:53] LABS: Glucose, Whole Blood 398 mg/dL (60-115)
[2024-12-19 07:34] LABS: Basophils Percent Auto 0.1 % (0-2); Hematocrit 32.9 % (42.0-52.0); Hemoglobin 10.8 g/dl (14.0-18.0); Imm Gran Abs Auto 0.09 X10*3/uL (0.00-0.03); Imm Gran Pct Auto 0.6 % (0.0-0.4); Lymphocytes Absolute Auto 0.4 X10*3/uL (1.2-4.9); Lymphocytes Percent Auto 2.5 % (20-40); MANUAL DIFF FLAG SCAN; Mean Corpuscular HGB Conc 32.8 g/dl (31.0-36.0); Mean Corpuscular Hemoglobin 26.9 pg (27.0-33.0); Mean Platelet Volume 10.2 fL (9.4-12.4); Monocytes Absolute Auto 0.8 X10*3/uL (0.1-1.2); Monocytes Percent Auto 5.2 % (2-11); Neutrophils Absolute Auto 13.4 x10*3/uL (2.0-8.3); Neutrophils Percent Auto 91.6 % (45-73); Platelet Count 273 X10*3/uL (160-400); Red Blood Count 4.01 X10*6/uL (4.60-5.80); Red Cell Distribution Width 16.9 % (11.0-16.0); SCAN SMEAR FLAG 1; White Blood Count 14.7 X10*3/uL (4.8-10.8)
[2024-12-19 07:50] LABS: Glucose, Whole Blood 370 mg/dL (60-115)
[2024-12-19] MEDS: Enoxaparin Sodium 40 MG/0.4 ML SYRINGE SUBCUT (07:52)
[2024-12-19 07:53] LABS: Estimated Average Glucose 203 mg/dL; Hemoglobin A1C 214.8232 umol/L; Hemoglobin A1c % 8.7 % (<6.0)
[2024-12-19 07:53] LABS: B Type Natriuretic Peptide 251 pg/mL (<100)
[2024-12-19] MEDS: lisinopriL 10 MG TABLET PO (07:53)
[2024-12-19] MEDS: Nicotine 14 MG PATCH.TD24 TRANSDERMA (07:53)
[2024-12-19] MEDS: 0.9 % Sodium Chloride Flush 3 ML SYRINGE IVFLUSH ×2 (07:55→16:40)
[2024-12-19] MEDS: Insulin Lispro 100 UNIT/ML 3 ML VIAL SUBCUT ×4 (07:56→20:44)
[2024-12-19] MEDS: Metoprolol Succinate ER 25 MG TAB.ER.24H PO (07:57)
[2024-12-19 08:02] LABS: SLIDE REVIEW VERIFIED
[2024-12-19 08:19] LABS: Alanine Aminotransferase 6 U/L (0-40); Albumin Level 3.4 g/dL (3.5-5.0); Alkaline Phosphatase 91 U/L (39-117); Anion Gap 15 (12-20); Aspartate Amino Transferase 12 U/L (5-37); Bilirubin Total 0.3 mg/dL (0.0-1.0); Blood Urea Nitrogen 26 mg/dL (9-16); Calcium 8.4 mg/dL (8.4-10.2); Carbon Dioxide 22 mmol/L (22-29); Chloride 100 mmol/L (96-108); Estimated Glomerular Filt Rate > 60; Glucose Random 422 mg/dL (60-115); Sodium 133 mmol/L (135-145); Total Protein 6.1 g/dL (6.5-8.0)
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
[2024-12-19 09:41] LABS: Glucose, Whole Blood 382 mg/dL (60-115)
--- NOTE | 2024-12-19 10:42 | P.CNNE_ITS ---
History of Present Illness Data of Consult Service Date: 12/19/24 Primary Care Provider: Unknown Physician HPI Reason for consult: Abnormal head CT 69 years old man with underlying history of diabetes probably not treated her control, and some psychiatric disease came to hospital with agitation or change in mental status. He was found to have blood glucose of 599 and was admitted. Head CT was performed that revealed a finding prompting this consultation. Review of Systems 2 Review of Systems: Generalized lethargy and change in mental status PMFSH Social History Social History Advance Directives: No Advance Directives Information Provided: Yes Do you have a plan to hurt others: No Plan Travel History Ebola Risk: Travel/Contact With Anyone From Affected Area/s: No Has Patient Experienced Ebola Symptoms: No Meds Allergies Allergy/AdvReac Type Severity Reaction Status Date / Time No Known Allergies Allergy Verified 12/18/24 22:23 Active Medications: Current Medications Acetaminophen (Acetaminophen 325 Mg Tablet) 650 mg PO Q6H PRN PRN Reason: Pain, Mild 1-3,fever,headache Calcium Carbonate (Calcium Carbonate 750 Mg Tab.Chew) 750 mg PO Q4H PRN PRN Reason: Heartburn Dextrose (Dextrose 50 % 25 Gm/50 Ml Syringe) 25 gm IVPUSH Q30M PRN PRN Reason: BG < 70 Dextrose (Dextrose 50 % 25 Gm/50 Ml Syringe) 25 gm IVPUSH Q15M PRN; Protocol PRN Reason: per Hypoglycemia Standing Ord. Dextrose (Dextrose 50 % 25 Gm/50 Ml Syringe) 25 gm IVPUSH Q15M PRN; Protocol PRN Reason: per Hypoglycemia Standing Ord. Enoxaparin Sodium (Enoxaparin Sodium 40 Mg/0.4 Ml Syringe) 40 mg SUBCUT Q24H [facility] Last Admin: 12/19/24 07:52 Dose: 40 mg Glucose (Glucose Gel 15 Gm Gel..Gram.) 15 gm PO Q15M PRN; Protocol PRN Reason: per Hypoglycemia Standing Ord. Glucose (Glucose Gel 15 Gm Gel..Gram.) 15 gm PO Q15M PRN; Protocol PRN Reason: per Hypoglycemia Standing Ord. Hydralazine HCl (Hydralazine Hcl 20 Mg/Ml Vial) 10 mg IVPUSH Q6H PRN; Protocol PRN Reason: SBP > 160 Insulin Glargine (Insulin Glargine,Hum.Rec.Anlog 100 Unit/Ml 10 Ml Vial) 20 unit SUBCUT BEDTIME [facility] Last Admin: 12/19/24 04:06 Dose: 20 unit Insulin Human Lispro (Insulin Lispro 100 Unit/Ml 3 Ml Vial) 0 unit SUBCUT QIDACHS [facility]; Protocol Last Admin: 12/19/24 07:56 Dose: 12 unit Lisinopril (Lisinopril 10 Mg Tablet) 10 mg PO DAILY [facility]; Protocol Last Admin: 12/19/24 07:53 Dose: 10 mg Magnesium Hydroxide (Milk Of Magnesia 30 Ml Oral.Susp) 30 ml PO DAILY PRN PRN Reason: Constipation Melatonin (Melatonin 3 Mg Tablet) 6 mg PO BEDTIME PRN PRN Reason: Insomnia Metoprolol Succinate (Metoprolol Succinate Er 25 Mg Tab.Er.24h) 25 mg PO DAILY [facility]; Protocol Last Admin: 12/19/24 07:57 Dose: 25 mg Nicotine (Nicotine 14 Mg Patch.Td24) 14 mg TRANSDERMA DAILY [facility] Last Admin: 12/19/24 07:53 Dose: 14 mg Ondansetron HCl (Ondansetron Hcl 4 Mg/2 Ml Vial) 4 mg IVPUSH Q8H PRN PRN Reason: Nausea and Vomiting Sodium Chloride (0.9 % Sodium Chloride Flush 3 Ml Syringe) [address] [facility] Last Admin: 12/19/24 07:55 Dose: 3 ml Home Medications ?Medication ?Instructions ?Recorded ?Confirmed ?Last Taken ?Type buspirone 15 mg tablet 15 mg PO BID 12/19/24 12/19/24 12/18/24 History clopidogrel 75 mg tablet 75 mg PO DAILY 12/19/24 12/19/24 12/18/24 History digoxin 125 mcg (0.125 mg) tablet 125 mcg PO DAILY 12/19/24 12/19/24 12/18/24 History divalproex 250 mg tablet,delayed 250 mg PO BID 12/19/24 12/19/24 12/18/24 History release empagliflozin 25 mg tablet 25 mg PO DAILY 12/19/24 12/19/24 12/18/24 History (Jardiance) fluoxetine 40 mg capsule 40 mg PO DAILY 12/19/24 12/19/24 12/18/24 History furosemide 40 mg tablet 40 mg PO DAILY 12/19/24 12/19/24 12/18/24 History insulin glargine-yfgn 100 unit/mL 30 unit subcut DAILY 12/19/24 12/19/24 12/18/24 History (3 mL) subcutaneous pen insulin lispro 100 unit/mL 2 - 12 unit subcut TID 12/19/24 12/19/24 12/18/24 History subcutaneous pen (Humalog KwikPen (U-100) Insulin) lisinopril 10 mg tablet 10 mg PO DAILY 12/19/24 12/19/24 12/18/24 History metformin 500 mg tablet 500 mg PO BID 12/19/24 12/19/24 12/18/24 History metoprolol succinate 100 mg 100 mg PO DAILY 12/19/24 12/19/24 12/18/24 History tablet,extended release 24 hr omeprazole 40 mg capsule,delayed 40 mg PO DAILY@0630 12/19/24 12/19/24 12/18/24 History release pregabalin 200 mg capsule 200 mg PO TID 12/19/24 12/19/24 12/18/24 History rivaroxaban 20 mg tablet (Xarelto) 20 mg PO DAILY 12/19/24 12/19/24 12/18/24 History torsemide 20 mg tablet 20 mg PO DAILY 12/19/24 12/19/24 12/18/24 History trazodone 50 mg tablet 50 mg PO BEDTIME 12/19/24 12/19/24 12/18/24 History umeclidinium 62.5 mcg/actuation 1 inh inhalation DAILY 12/19/24 12/19/24 12/18/24 History blister powder for inhalation (Incruse Ellipta) Physical Exam 2 Vital Signs: Vital Signs: Last Vital Signs Temp 97.9 F 12/19/24 05:21 Pulse 90 12/19/24 08:37 Resp 18 12/19/24 08:37 BP 140/65 H 12/19/24 08:37 Pulse Ox 95 12/19/24 08:37 O2 Del Method Room Air 12/19/24 08:37 BMI result Body Mass Index 35.4 Neuro: Other: He is drowsy but easily arousable. Spontaneity and fluency of speech are normal. He is able to answer simple questions. He knew what was going on and where he was. Deep tendon reflexes were absent with flexor plantars. Face was symmetrical. Visual sandy are full. Results Labs 12/19/24 07:23 12/19/24 07:23 Labs: Short CBC 12/18/24 12/19/24 Range/Units 22:36 07:23 WBC 10.6 14.7 H (4.8-10.8) X10*3/uL Hgb 11.3 L D 10.8 L (14.0-18.0) g/dl Hct 34.9 L 32.9 L (42.0-52.0) % Plt Count 333 D 273 (160-400) X10*3/uL BMP 12/18/24 12/19/24 12/19/24 22:36 00:38 03:13 Sodium 131 L 131 L 132 L Potassium 4.5 4.0 3.9 Chloride 95 L 96 97 Carbon Dioxide 18 L 18 L 22 BUN 31 H 29 H 29 H Creatinine 1.72 H 1.51 H 1.35 Calcium 8.8 D 8.3 L 8.7 12/19/24 07:23 Sodium 133 L Potassium 4.0 Chloride 100 Carbon Dioxide 22 BUN 26 H Creatinine 1.11 Calcium 8.4 Liver Function 12/18/24 12/19/24 Range/Units 22:36 07:23 Total Bilirubin 0.4 0.3 (0.0-1.0) mg/dL AST 15 12 (5-37) U/L ALT 11 6 (0-40) U/L Alkaline Phosphatase 108 91 (39-117) U/L Albumin 3.8 3.4 L (3.5-5.0) g/dL Urine 12/18/24 Range/Units 22:36 Urine Color Yellow Urine Appearance Clear Urine pH 5.0 (5.0-9.0) Ur Specific [place] >= 1.030 H (1.005-1.025) Urine Protein 100 (2+) H (Neg-Trace) mg/dL Urine Glucose (UA) >=1000 H (Negative) mg/dL Head CT revealed possible pontine hypodensity versus artifact. Assessment and Plan (1) Abnormal head CT: Status: Acute The type of abnormality described on the report, pontine hypodensity, could typically result from severe metabolic abnormality including the type of hyperglycemia he has or severe sodium abnormalities. Generally speaking, it remains asymptomatic. Mainstay of management is correction of metabolic numbers and glucose. When stable, a noncontrast MRI of brain can help to differentiate. Procedures Date of Service Date of Service: 12/19/24
[2024-12-19 11:33] LABS: Influenza A PCR NEGATIVE (Negative); Influenza B PCR NEGATIVE (Negative); Resp Syncy Virus RNA Qual PCR NEGATIVE (Negative); SARS COV2 PCR INHOUSE NEGATIVE (Negative)
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
[2024-12-19 13:05] LABS: Glucose, Whole Blood 340 mg/dL (60-115)
[2024-12-19] MEDS: Torsemide 20 MG TABLET 40 MG PO (13:10)
[2024-12-19] MEDS: Pregabalin 200 MG CAPSULE PO ×2 (15:20→20:44)
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
[2024-12-19 16:30] LABS: Glucose, Whole Blood 192 mg/dL (60-115)
[2024-12-19] MEDS: LORazepam 1 MG TABLET PO (16:39)
[2024-12-19 18:50] LABS: Glucose, Whole Blood 259 mg/dL (60-115)
[2024-12-19 20:11] LABS: Glucose, Whole Blood 203 mg/dL (60-115)
[2024-12-19] MEDS: traZODone HCL 50 MG TABLET PO (20:43)
[2024-12-19] MEDS: busPIRone HCl 5 MG TABLET 15 MG PO (20:43)
[2024-12-19] MEDS: Divalproex Sodium 250 MG TABLET.DR PO (20:44)
[2024-12-20] VITALS (8 sets, daily range): BP systolic 121–162; BP diastolic 62–77; PULSE 70–84; RESP 16–24; TEMP 36.4–37.1; O2SAT 94–97
[2024-12-20 05:39] LABS: Venous Blood Gas Refer to POC result
[2024-12-20 05:39] LABS: VBG Base Excess 7.1 mmol/L; VBG HCO3 32 mmol/L (22-26); VBG pCO2 47 mmHg; VBG pH 7.44 (7.32-7.43); VBG pO2 28 mmHg
[2024-12-20 05:56] LABS: Anion Gap 13 (12-20); Blood Urea Nitrogen 27 mg/dL (9-16); Carbon Dioxide 27 mmol/L (22-29); Chloride 103 mmol/L (96-108); Creatinine Clr Calc Pharmacy 75.3; Estimated Glomerular Filt Rate > 60; Glucose Random 204 mg/dL (60-115); Potassium 4.6 mmol/L (3.3-5.1); Sodium 138 mmol/L (135-145)
[2024-12-20 05:58] LABS: B Type Natriuretic Peptide 227 pg/mL (<100)
[2024-12-20] MEDS: Pantoprazole Sodium 20 MG TABLET.DR 40 MG PO ×2 (06:19→16:37)
[2024-12-20 07:21] LABS: Glucose, Whole Blood 153 mg/dL (60-115)
[2024-12-20] MEDS: Enoxaparin Sodium 40 MG/0.4 ML SYRINGE SUBCUT (07:40)
[2024-12-20] MEDS: Nicotine 14 MG PATCH.TD24 TRANSDERMA (07:40)
[2024-12-20] MEDS: busPIRone HCl 5 MG TABLET 15 MG PO ×2 (07:41→20:55)
[2024-12-20] MEDS: Metoprolol Succinate ER 100 MG TAB.ER.24H PO (07:41)
[2024-12-20] MEDS: Pregabalin 200 MG CAPSULE PO ×3 (07:41→20:55)
[2024-12-20] MEDS: lisinopriL 10 MG TABLET PO (07:41)
[2024-12-20] MEDS: FLUoxetine HCl 20 MG CAPSULE 40 MG PO (07:41)
[2024-12-20] MEDS: Divalproex Sodium 250 MG TABLET.DR PO ×2 (07:41→20:55)
[2024-12-20] MEDS: Digoxin 0.125 MG TABLET PO (07:42)
[2024-12-20] MEDS: Torsemide 20 MG TABLET PO (07:42)
[2024-12-20] MEDS: Clopidogrel Bisulfate 75 MG TABLET PO (07:42)
[2024-12-20] MEDS: Insulin Lispro 100 UNIT/ML 3 ML VIAL SUBCUT ×4 (07:45→20:55)
[2024-12-20] MEDS: 0.9 % Sodium Chloride Flush 3 ML SYRINGE IVFLUSH ×3 (07:45→20:56)
[2024-12-20] MEDS: Empagliflozin 25 MG TABLET PO (08:05)
[2024-12-20] MEDS: Tiotropium Bromide 2.5 mcg 1 PUFF/2.5 MCG MIST.INHAL 2 PUFF INHALE (08:05)
[2024-12-20 10:09] LABS: Glucose, Whole Blood 281 mg/dL (60-115)
--- NOTE | 2024-12-20 11:16 | MHC.CARE ---
Pt meets the criteria for IPLOC. Section 12a in chart. Provider in agreement.
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
[2024-12-20 15:58] LABS: Glucose, Whole Blood 194 mg/dL (60-115)
[2024-12-20] MEDS: Rivaroxaban 20 MG TABLET PO (16:37)
[2024-12-20 20:36] LABS: Glucose, Whole Blood 215 mg/dL (60-115)
[2024-12-20] MEDS: Insulin Glargine,Hum.rec.anlog 100 UNIT/ML 10 ML VIAL 20 UNIT SUBCUT (20:55)
[2024-12-21 04:00] VITALS: BP 165/80; PULSE 60; RESP 18; TEMP 36.6; O2SAT 95
[2024-12-21] MEDS: LORazepam 1 MG TABLET PO (04:01)
[2024-12-21] MEDS: Tiotropium Bromide 2.5 mcg 1 PUFF/2.5 MCG MIST.INHAL 2 PUFF INHALE (07:32)
[2024-12-21 07:34] VITALS: PULSE 80; RESP 18; O2SAT 97
[2024-12-21 07:37] VITALS: BP 142/82; PULSE 59; RESP 16; TEMP 36.3; O2SAT 97
[2024-12-21 07:55] LABS: Glucose, Whole Blood 160 mg/dL (60-115)
[2024-12-21] MEDS: Enoxaparin Sodium 40 MG/0.4 ML SYRINGE SUBCUT (09:02)
[2024-12-21] MEDS: Insulin Lispro 100 UNIT/ML 3 ML VIAL SUBCUT ×2 (09:03→11:21)
[2024-12-21] MEDS: 0.9 % Sodium Chloride Flush 3 ML SYRINGE IVFLUSH (09:03)
[2024-12-21 09:07] VITALS: BP 157/81; PULSE 68
[2024-12-21] MEDS: Metoprolol Succinate ER 100 MG TAB.ER.24H PO (09:07)
[2024-12-21] MEDS: Empagliflozin 25 MG TABLET PO (09:07)
[2024-12-21] MEDS: Divalproex Sodium 250 MG TABLET.DR PO (09:07)
[2024-12-21] MEDS: busPIRone HCl 5 MG TABLET 15 MG PO (09:11)
[2024-12-21] MEDS: FLUoxetine HCl 20 MG CAPSULE 40 MG PO (09:13)
[2024-12-21] MEDS: Pregabalin 200 MG CAPSULE PO (09:13)
[2024-12-21] MEDS: Clopidogrel Bisulfate 75 MG TABLET PO (09:13)
[2024-12-21] MEDS: Torsemide 20 MG TABLET PO (09:14)
[2024-12-21] MEDS: Digoxin 0.125 MG TABLET PO (09:15)
[2024-12-21] MEDS: lisinopriL 10 MG TABLET PO (09:15)
[2024-12-21 10:45] VITALS: BP 151/81; PULSE 80; RESP 16; TEMP 36.6; O2SAT 96
[2024-12-21 10:59] LABS: Glucose, Whole Blood 259 mg/dL (60-115)
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
--- NOTE | 2024-12-21 14:42 | MHC.CM.PN ---
Pt transferring to inpatient psych unit.
== END 2024-12-21 14:12 | DRG 637 ==
LOC: HO.ED 12-19 02:50 → HO.EDOVER 12-19 04:07 → HO.IMC 12-20 08:11
PROVIDERS: Physician Assistant; Student in an Organized Health Care Education/Training Program; Admitting Provider Nurse Practitioner Family; Emergency Provider Emergency Medicine; PCP Family Medicine; Visit Provider Family Medicine
DX: E11.10 Type 2 diabetes mellitus with ketoacidosis without coma (principal); G92.8 Other toxic encephalopathy; E87.1 Hypo-osmolality and hyponatremia; I10 Essential (primary) hypertension; I48.91 Unspecified atrial fibrillation; L84 Corns and callosities; F11.90 Opioid use, unspecified, uncomplicated; F17.210 Nicotine dependence, cigarettes, uncomplicated; Z20.822 Contact with and (suspected) exposure to COVID-19; Z91.148 Patient's other noncompliance with medication regimen for other reason; Z71.6 Tobacco abuse counseling; Z79.4 Long term (current) use of insulin; Z79.01 Long term (current) use of anticoagulants; Z79.02 Long term (current) use of antithrombotics/antiplatelets; Z79.84 Long term (current) use of oral hypoglycemic drugs; Z79.899 Other long term (current) drug therapy
CPT/HCPCS: 0241U; 36415; 70450; 70551; 71045; 80048; 80053; 80162; 80164; 80307; 81001; 82010; 82803; 82947; 83036; 83735; 83880; 84443; 84484; 85025; 93005; 94640; 99285; J1650; J2060; J7120; S9485

== ENCOUNTER → 2024-12-18 22:31 | Outpatient (BNV) | payer MEDICARE, SELFPAY | PROVIDERS: Admitting Provider Nurse Practitioner Family; Emergency Provider Emergency Medicine; Visit Provider Internal Medicine | DX: I48.91 Unspecified atrial fibrillation (principal); I45.10 Unspecified right bundle-branch block | CPT/HCPCS: 93010 ==

== ENCOUNTER → 2024-12-18 22:59 | Outpatient (BNV) | payer OTHER, SELFPAY | PROVIDERS: Visit Provider Radiology Diagnostic Radiology | DX: G37.2 Central pontine myelinolysis (principal); J98.11 Atelectasis | CPT/HCPCS: 70450; 71045 ==

== ENCOUNTER 2024-12-19 03:56 | Outpatient (BNV) | payer MEDICARE, SELFPAY | END 2024-12-19 13:06 | PROVIDERS: Admitting Provider Nurse Practitioner Family; Emergency Provider Emergency Medicine; Visit Provider Radiology Diagnostic Radiology | DX: G93.89 Other specified disorders of brain (principal) | CPT/HCPCS: 70551 ==

== ENCOUNTER → 2024-12-19 03:56 | Outpatient (BNV) | payer MEDICARE, SELFPAY | PROVIDERS: Admitting Provider Nurse Practitioner Family; Emergency Provider Emergency Medicine; Visit Provider Nurse Practitioner Family | DX: E11.10 Type 2 diabetes mellitus with ketoacidosis without coma (principal) | CPT/HCPCS: 99232 ==

== ENCOUNTER → 2024-12-19 03:56 | Outpatient (BNV) | payer MEDICARE, SELFPAY | PROVIDERS: Admitting Provider Nurse Practitioner Family; Emergency Provider Emergency Medicine; Visit Provider Psychiatry & Neurology Neurology | DX: R93.0 Abnormal findings on diagnostic imaging of skull and head, not elsewhere classified (principal) | CPT/HCPCS: 99222 ==

== ENCOUNTER 2024-12-21 14:17 | Inpatient (IN) | payer MEDICARE, SELFPAY ==
[2024-12-21 14:03] LABS: Alanine Aminotransferase 14 U/L (0-40); Albumin Level 3.4 g/dL (3.5-5.0); Alkaline Phosphatase 76 U/L (39-117); Anion Gap 15 (12-20); Aspartate Amino Transferase 13 U/L (5-37); Bilirubin Total 0.5 mg/dL (0.0-1.0); Blood Urea Nitrogen 32 mg/dL (9-16); Carbon Dioxide 25 mmol/L (22-29); Chloride 100 mmol/L (96-108); Estimated Glomerular Filt Rate 56; Glucose Random 253 mg/dL (60-115); Potassium 4.4 mmol/L (3.3-5.1); Sodium 136 mmol/L (135-145); Total Protein 6.4 g/dL (6.5-8.0)
--- OUTSIDE RECORDS SUMMARY | 2024-12-21 14:20 | XMS_ITS | Clinical Summary ---
Author Organization [address] [facility] Address [address] [place] [address] Phone Care Team Providers Care Recreation Center Director Name Role Phone Josh Dumont MD Primary Care Provider [phone] Encounters Date Type Department Care Team Description 12/11/2024 Lab Requisition [facility] [address] [place] [phone] Josh Dumont MD Unspecified atrial fibrillation (CMS/HCC); Type 1 diabetes mellitus, presymptomatic, unspecified; Chronic systolic (congestive) heart failure (CMS/HCC) 12/09/2024 Lab Requisition [facility] [address] [place] [phone] Josh Dumont MD Type 2 diabetes mellitus without complications (CMS/HCC) 11/29/2024 Lab Requisition [facility] [address] [place] [phone] Josh Dumont MD Essential (primary) hypertension; Type [...] (HCC) COPD (chronic obstructive pu lmonary disease) ([facility]) 11/08/2018 DX:COPD (chronic obstructive pulmonary disease) ([facility]) Bipolar disorder 11/08/2018 DX:Bipolar diso rder ([facility]) CHF (congestive heart failur e) ([facility]) 08/14/2018 DX:CHF (congestive heart [...] K/mcL LAB HEMETOLOGY METHOD 12/11/2024 9:42 AM [facility] RBC 4.40(L) 4.50 - 5.50 M/mcL LAB HEMETOLOGY METHOD 12/11/2024 9:42 AM [facility] Hemoglobin 11.6(L) 13.5 - 17.5 g/dL LAB HEMETOLOGY METHOD 12/11/2024 9:42 AM [facility] Hematocrit 37.2(L) 42.0 - 54.0 % LAB HEMETOLOGY METHOD 12/11/2024 9:42 AM [facility] MCV 85.5 79.0 - 98.0 FL LAB HEMETOLOGY METHOD 12/11/2024 9:42 AM [facility] MCH 26.7(L) 27.0 - 32.0 pcg LAB HEMETOLOGY METHOD 12/11/2024 9:42 AM [facility] MCHC 31.2(L) 32.0 - 37.0 g/dL LAB HEMETOLOGY METHOD 12/11/2024 9:42 AM EDT [facility] RDW 17.2(H) 11.0 - 15.0 % LAB HEMETOLOGY METHOD 12/11/2024 9:42 AM EDT [facility] Platelets 306 130 - 400 K/mcL LAB HEMETOLOGY METHOD 12/11/2024 9:42 AM EDT [facility] MPV 10.3 7.0 - 11.0 FL LAB HEMETOLOGY METHOD 12/11/2024 9:42 AM EDT [facility] NRBC 0.0 <1.0 % LAB HEMETOLOGY METHOD 12/11/2024 9:42 AM EDT [facility] NRBC Absolute 0.00 <0.10 K/mcL LAB HEMETOLOGY METHOD 12/11/2024 9:42 AM EDT [facility] Blood Venous blood specimen / Unknown Venipuncture / Unknown 12/11/2024 5:15 AM EDT 12/11/2024 9:28 AM EDT Josh Dumont MD LAB BLOOD ORDERABLES Final R esult Performing Organization Address City/[facility]/ZIP Co de Phone Number [facility] [address] [place] [address], * (ABNORMAL) B-type natriuretic peptide (12/11/2024 5:15 AM EDT) BNP 134(H) <=100 pcg/mL LAB CHEMISTRY METHOD 12/11/2024 10:26 AM EDT [facility] Blood Venous blood specimen / Unknown Venipuncture / Unknown 12/11/2024 5:15 AM EDT 12/11/2024 9:28 AM EDT Josh Dumont MD LAB BLOOD ORDERABLES Final R esult [facility] [address] [place] [address], * (ABNORMAL) Basic metabolic panel (12/11/2024 5:15 AM EDT) Only the most recent of3 resultswithin the time period is included. Sodium 136 133 - 145 mmol/L LAB CHEMISTRY METHOD 12/11/2024 10:21 AM [facility] Potassium 4.6 3.5 - 5.5 mmol/L LAB CHEMISTRY METHOD 12/11/2024 10:21 AM [facility] Chloride 98 96 - 110 mmol/L LAB CHEMISTRY METHOD 12/11/2024 10:21 AM [facility] CO2 29 21 - 32 mmol/L LAB CHEMISTRY METHOD 12/11/2024 10:21 AM [facility] Anion Gap 9 3 - 11 LAB CHEMISTRY METHOD 12/11/2024 10:21 AM [facility] Glucose 165(H) 70 - 100 mg/dL LAB CHEMISTRY METHOD 12/11/2024 10:21 AM [facility] BUN 23 5 - 25 mg/dL LAB CHEMISTRY METHOD 12/11/2024 10:21 AM [facility] Creatinine 1.14 0.70 - 1.30 mg/dL LAB CHEMISTRY METHOD 12/11/2024 10:21 AM [facility] eGFR 70 >=60 mL/min/1. 73m2 LAB CHEMISTRY METHOD 12/11/2024 10:21 AM [facility] Comment:Calculation based on the??Chronic Kidney Disease Epidemiology Collaboration (CKD-EPI) equation refit??without adjustment for race. BUN/Creatinine Ratio 20.2 LAB CHEMISTRY METHOD 12/11/2024 10:21 AM [facility] Calcium 9.5 8.5 - 10.5 mg/dL LAB CHEMISTRY METHOD 12/11/2024 10:21 AM EDT [facility] Blood Venous blood specimen / Unknown Venipuncture / Unknown 12/11/2024 5:15 AM EDT 12/11/2024 9:28 AM EDT Josh Dumont MD LAB BLOOD ORDERABLES Final R esult [facility] ([facility]) [facility] [address] [place] [address], from Last 3 Months Insurance [employer] - [place] MEDICARE ADVANTAGE Care Teams Recreation Center Director Relationship Specialty Start Date End Date Josh Dumont MD [address] [place] [address] PCP - General Family Medicine 11/29/24
--- OUTSIDE RECORDS SUMMARY | 2024-12-21 14:20 | XMS_ITS | Encounter Summary ---
Author Organization [facility] Address [address] [place] [address] Care Team Providers Care Batch And Furnace Manager Name Role Phone Josh Dumont MD Primary Care Provider Encounter Details Date Type Department Care Team (Latest Contact Info) Description 11/29/2024 Lab Requisition [facility] [address] [place] [phone] Josh Dumont MD [facility] [place] [address] Essential (primary) hypertension; Type 2 diabetes mellitus [...] LAB CHEMISTRY METHOD 11/29/2024 12:43 PM EDT [facility] Potassium 4.7 3.5 - 5.5 mmol/L LAB CHEMISTRY METHOD 11/29/2024 12:[address] [facility] Chloride 102 96 - 110 mmol/L LAB CHEMISTRY METHOD 11/29/2024 12:[address] [facility] CO2 31 21 - 32 mmol/L LAB CHEMISTRY METHOD 11/29/2024 12:[address] [facility] Anion Gap 5 3 - 11 LAB CHEMISTRY METHOD 11/29/2024 12:[address] [facility] Glucose 143(H) 70 - 100 mg/dL LAB CHEMISTRY METHOD 11/29/2024 12:[address] [facility] BUN 29(H) 5 - 25 mg/dL LAB CHEMISTRY METHOD 11/29/2024 12:[address] [facility] Creatinine 1.12 0.70 - 1.30 mg/dL LAB CHEMISTRY METHOD 11/29/2024 12:[address] [facility] eGFR 72 >=60 mL/min/1. 73m2 LAB CHEMISTRY METHOD 11/29/2024 12:[address] [facility] Comment:Calculation based on the??Chronic Kidney Disease Epidemiology Collaboration (CKD-EPI) equation refit??without adjustment for race. BUN/Creatinine Ratio 25.9 LAB CHEMISTRY METHOD 11/29/2024 12:[address] [facility] Calcium 8.9 8.5 - 10.5 mg/dL LAB CHEMISTRY METHOD 11/29/2024 12:[address] [facility] Blood Venous blood specimen / Unknown Venipuncture / Unknown 11/29/2024 7:38 AM EDT 11/29/2024 11:59 AM EDT us Josh Dumont MD LAB BLOOD ORDERABLES Final R esult [facility] [address] [place] [address], * (ABNORMAL) Complete blood count (11/29/2024 7:38 AM EDT) [facility] WBC 6.3 4.8 - 10.8 K/mcL LAB HEMETOLOGY METHOD 11/29/2024 12:[address] [facility] RBC 4.20(L) 4.50 - 5.50 M/mcL LAB HEMETOLOGY METHOD 11/29/2024 12:[address] [facility] Hemoglobin 11.1(L) 13.5 - 17.5 g/dL LAB HEMETOLOGY METHOD 11/29/2024 12:[address] [facility] Hematocrit 36.1(L) 42.0 - 54.0 % LAB HEMETOLOGY METHOD 11/29/2024 12:[address] [facility] MCV 86.8 79.0 - 98.0 FL LAB HEMETOLOGY METHOD 11/29/2024 12:[address] [facility] MCH 26.7(L) 27.0 - 32.0 pcg LAB HEMETOLOGY METHOD 11/29/2024 12:[address] [facility] MCHC 30.7(L) 32.0 - 37.0 g/dL LAB HEMETOLOGY METHOD 11/29/2024 12:[address] [facility] RDW 17.4(H) 11.0 - 15.0 % LAB HEMETOLOGY METHOD 11/29/2024 12:[address] [facility] Platelets 182 130 - 400 K/mcL LAB HEMETOLOGY METHOD 11/29/2024 12:[address] [facility] MPV 12.0(H) 7.0 - 11.0 FL LAB HEMETOLOGY METHOD 11/29/2024 12:[address] [facility] NRBC 0.0 <1.0 % LAB HEMETOLOGY METHOD 11/29/2024 12:[address] [facility] NRBC Absolute 0.00 <0.10 K/mcL LAB HEMETOLOGY METHOD 11/29/2024 12:33 PM EDT [facility] Blood Venous blood specimen / Unknown Venipuncture / Unknown 11/29/2024 7:38 AM EDT 11/29/2024 11:59 AM EDT us Josh Dumont MD LAB BLOOD ORDERABLES Final R esult [facility] [address] [place] [address], documented in this encounter Visit Diagnoses Diagnosis Essential (primary) hypertension Unspecified essential hypertension Type 2 diabetes mellitus without complications documented in this encounter Care Teams Batch And Furnace Manager Relationship Specialty Start Date End Date Josh Dumont MD [address] [place] [address] PCP - General Family Medicine 11/29/24 documented as of this encounter
--- OUTSIDE RECORDS SUMMARY | 2024-12-21 14:20 | XMS_ITS | Encounter Summary ---
Author Organization [facility] Address [address] [place] [address] Care Team Providers Care Thermoforming Operator Name Role Phone Josh Dumont MD Primary Care Provider Encounter Details Date Type Department Care Team (Latest Contact Info) Description 12/09/2024 Lab Requisition [facility] [address] [place] [address] Josh Dumont MD [facility] [place] [address] Type 2 diabetes mellitus without complications (CMS/[facility]) Social History Tobacco Use Types Packs/Day Years [...] LAB CHEMISTRY METHOD 12/09/2024 11:43 AM EDT [facility] Potassium 5.0 3.5 - 5.5 mmol/L LAB CHEMISTRY METHOD 12/09/2024 11:43 AM EDT [facility] Chloride 100 96 - 110 mmol/L LAB CHEMISTRY METHOD 12/09/2024 11:43 AM [facility] CO2 30 21 - 32 mmol/L LAB CHEMISTRY METHOD 12/09/2024 11:43 AM [facility] Anion Gap 6 3 - 11 LAB CHEMISTRY METHOD 12/09/2024 11:43 AM [facility] Glucose 202(H) 70 - 100 mg/dL LAB CHEMISTRY METHOD 12/09/2024 11:43 AM [facility] BUN 24 5 - 25 mg/dL LAB CHEMISTRY METHOD 12/09/2024 11:43 AM [facility] Creatinine 1.17 0.70 - 1.30 mg/dL LAB CHEMISTRY METHOD 12/09/2024 11:43 AM [facility] eGFR 68 >=60 mL/min/1. 73m2 LAB CHEMISTRY METHOD 12/09/2024 11:43 AM [facility] Comment:Calculation based on the??Chronic Kidney Disease Epidemiology Collaboration (CKD-EPI) equation refit??without adjustment for race. BUN/Creatinine Ratio 20.5 LAB CHEMISTRY METHOD 12/09/2024 11:43 AM [facility] Calcium 9.0 8.5 - 10.5 mg/dL LAB CHEMISTRY METHOD 12/09/2024 11:43 AM [facility] Blood Venous blood specimen / Unknown Venipuncture / Unknown 12/09/2024 5:18 AM EDT 12/09/2024 10:44 AM EDT us Josh Dumont MD LAB BLOOD ORDERABLES Final R esult [facility] [address] [place] [address], * (ABNORMAL) Complete blood count (12/09/2024 5:18 AM EDT) WBC 10.7 4.8 - 10.8 K/mcL LAB HEMETOLOGY METHOD 12/09/2024 11:15 AM [facility] RBC 4.20(L) 4.50 - 5.50 M/mcL LAB HEMETOLOGY METHOD 12/09/2024 11:15 AM [facility] Hemoglobin 11.2(L) 13.5 - 17.5 g/dL LAB HEMETOLOGY METHOD 12/09/2024 11:15 AM [facility] Hematocrit 35.4(L) 42.0 - 54.0 % LAB HEMETOLOGY METHOD 12/09/2024 11:15 AM [facility] MCV 85.1 79.0 - 98.0 FL LAB HEMETOLOGY METHOD 12/09/2024 11:15 AM [facility] MCH 26.9(L) 27.0 - 32.0 pcg LAB HEMETOLOGY METHOD 12/09/2024 11:15 AM [facility] MCHC 31.6(L) 32.0 - 37.0 g/dL LAB HEMETOLOGY METHOD 12/09/2024 11:15 AM [facility] RDW 17.3(H) 11.0 - 15.0 % LAB HEMETOLOGY METHOD 12/09/2024 11:15 AM [facility] Platelets 268 130 - 400 K/mcL LAB HEMETOLOGY METHOD 12/09/2024 11:15 AM [facility] MPV 10.8 7.0 - 11.0 FL LAB HEMETOLOGY METHOD 12/09/2024 11:15 AM [facility] NRBC 0.0 <1.0 % LAB HEMETOLOGY METHOD 12/09/2024 11:15 AM [facility] NRBC Absolute 0.00 <0.10 K/mcL LAB HEMETOLOGY METHOD 12/09/2024 11:15 AM [facility] Blood Venous blood specimen / Unknown Venipuncture / Unknown 12/09/2024 5:18 AM EDT 12/09/2024 10:44 AM EDT Josh Dumont MD LAB BLOOD ORDERABLES Final R esult Performing Organization Address City/State/[facility] Co de Phone Number [facility] [address] [place] [address], documented in this encounter Visit Diagnoses Diagnosis Type 2 diabetes mellitus without complications documented in this encounter Care Teams Thermoforming Operator Relationship Specialty Start Date End Date Josh Dumont MD [address] [place] [address] PCP - General Family Medicine 11/29/24 documented as of this encounter
--- OUTSIDE RECORDS SUMMARY | 2024-12-21 14:20 | XMS_ITS | Clinical Summary ---
Author Organization Unknown Care Team Providers Care [employer] Name Role Phone LARA CAREY, DUDLEY Unavailable Unavailable NARESH YANG, COURTNEY Unavailable Unavailable Payers Payer Name Policy Type Policy Number Effective Date Expira tion Date [facility] ADV [id number] MEDICARE - [facility] [id number] Problems Condition Name Condition Details Condition Category Status Onset Date Resolution Date Last Treatment Date Treating Clinician Comments MAJOR DEPRESSIVE DISORDER, RECURRENT, UNSPECIFIED Active 11-06 00:00: 00 UNSPECIFIED FALL, INITIAL ENCOUNTER Active 11-10 00:00: 00 UNSPECIFIED ATRIAL FIBRILLATION Active 11-10 00:00: 00 HEART FAILURE, UNSPECIFIED Active 11-10 00:00: 00 CHRONIC KIDNEY DISEASE, UNSPECIFIED Active 11-10 00:00: 00 HYPERLIPIDEM IA, UNSPECIFIED Active 11-10 00:00: 00 PERIPHERAL VASCULAR DISEASE, UNSPECIFIED Active 11-10 00:00: 00 TYPE 2 DIABETES MELLITUS W DIABETIC CHRONIC KIDNEY DISEASE Active 11-10 00:00: 00 Allergies, Adverse Reactions, Alerts Allergy Name Allergy Type Status Severity Reaction(s) Onset Date Inactive Date Treating Clinician Comments NKA Propensity to adverse reactions Active 2024-10 10:11:0 7 Medications Ordered Medication Name Filled Medication Name Start Date Stop Date Current Medication? Ordering Clinician Indication Dosage Frequency Signature (SIG) Comments Components atomoxetine 40 mg capsule 11-07 00:00: 00 Yes [id number] 1 capsule BEDTIME 1 capsule BEDTIME (route: oral) Med Classific ation: Central Nervous System Agents clopidogrel 75 mg tablet 11-07 00:00: 00 Yes [id number] 1 tablet BEDTIME 1 tablet BEDTIME (route: oral) Med Classific ation: Hematolog ical Agents digoxin 125 mcg (0.125 mg) tablet 11-07 00:00: 00 Yes [id number] 1 tablet BEDTIME 1 tablet BEDTIME (route: oral) Med Classific ation: Cardiovas cular Therapy Agents fluoxetine 40 mg capsule 11-07 00:00: 00 Yes [id number] 1 capsule EVERY AM 1 capsule EVERY AM (route: oral) Med Classific ation: Central Nervous System Agents furosemide 20 mg tablet 11-07 00:00: 00 Yes [id number] 1 tablet BEDTIME 1 tablet BEDTIME (route: oral) Med Classific ation: Cardiovas cular Therapy Agents Jardiance 25 mg tablet 11-07 00:00: 00 Yes [id number] 1 tablet EVERY AM 1 tablet EVERY AM (route: oral) Med Classific ation: Endocrine lisinopril 10 mg tablet 11-07 00:00: 00 Yes [id number] 1 tablet BEDTIME 1 tablet BEDTIME (route: oral) Med Classific ation: Cardiovas cular Therapy Agents Lyrica 200 mg capsule 11-07 00:00: 00 Yes [id number] 1 capsule 3 TIMES DAILY 1 capsule 3 TIMES DAILY (route: oral) Med Classific ation: Central Nervous System Agents metformin 500 mg tablet 11-07 00:00: 00 Yes [id number] 1 tablet EVERY AM 1 tablet EVERY AM (route: oral) Med Classific ation: Endocrine metoprolol succinate ER 100 mg tablet,exte nded release 24 hr 11-07 00:00: 00 Yes [id number] 1 tablet BEDTIME 1 tablet BEDTIME (route: oral) Med Classific ation: Cardiovas cular Therapy Agents Mounjaro 15 mg/0.5 mL subcutaneou s pen injector 11-07 00:00: 00 Yes [id number] 15 mg WEEKLY 15 mg WEEKLY (route: subcutaneo us) Med Classific ation: Endocrine omeprazole 40 mg capsule,del ayed release 11-07 00:00: 00 Yes [id number] 1 capsule EVERY AM 1 capsule EVERY AM (route: oral) Med Classific ation: Gastroint estinal Therapy Agents Semglee (insulin glargine-yf gn) 100 unit/mL subcutaneou s solution 11-07 00:00: 00 Yes [id number] Per instruc tions 3 TIMES DAILY Per instructio ns 3 TIMES DAILY (route: subcutaneo us) Med Classific ation: Endocrine Xarelto 20 mg tablet 11-07 00:00: 00 Yes [id number] 1 tablet EVERY PM 1 tablet EVERY PM (route: oral) Med Classific ation: Hematolog ical Agents albuterol sulfate 0.63 mg/3 mL solution for nebulizatio n 11-07 00:00: 00 Yes [id number] Per instruc tions 3 TIMES DAILY Per instructio ns 3 TIMES DAILY (route: inhalation ) Med Classific ation: Respirato ry Therapy Agents Nicoderm CQ 14 mg/24 hr daily transdermal patch 11-07 00:00: 00 Yes [id number] 1 patch, transde rmal 24 hours EVERY AM 1 patch, transderma l 24 hours EVERY AM (route: transderma l) Med Classific ation: Chemical Dependenc y, Agents to Treat trazodone 50 mg tablet 11-07 00:00: 00 Yes [id number] 1 tablet BEDTIME 1 tablet BEDTIME (route: oral) Med Classific ation: Central Nervous System Agents divalproex 250 mg tablet,christiana yed release 11-07 00:00: 00 Yes [id number] 1 tablet 2 TIMES DAILY 1 tablet 2 TIMES DAILY (route: oral) Med Classific ation: Central Nervous System Agents duloxetine 60 mg capsule,del ayed release 11-07 00:00: 00 Yes [id number] 1 capsule EVERY AM 1 capsule EVERY AM (route: oral) Med Classific ation: Central Nervous System Agents atorvastati n 40 mg tablet - 00:00: 00 Yes [id number] 1 tablet BEDTIME 1 tablet BEDTIME (route: oral) Med Classific ation: Cardiovas cular Therapy Agents buspirone 15 mg tablet - 00:00: 00 Yes [id number] 1 tablet 2 TIMES DAILY 1 tablet 2 TIMES DAILY (route: oral) Med Classific ation: Central Nervous System Agents Vital Signs Vital Name Observation Time Observation Value Commen ts Temperature 2024-12-05 12:43:00.000 96.8 [degF] Temperature 2024-11-07 11:14:00.000 98.6 [degF] BMI (%) 2024-12-05 12:43:00.000 40 kg/m2 BMI (%) 2024-11-07 10:22:12.000 40 kg/m2 Height 2024-12-05 12:43:00.000 67 [in_us] Height 2024-11-07 10:22:05.000 67 [in_us] Pulse 2024-12-05 12:43:00.000 77 /min Pulse 2024-11-07 11:14:00.000 60 /min O2 Saturation (%) 2024-11-07 11:15:00.000 96 % Respirations 2024-12-05 12:43:00.000 16 /min Respirations 2024-11-07 11:14:00.000 20 /min Weight (lbs) 2024-12-05 12:43:00.000 260 [lb_av] Weight (lbs) 2024-11-07 10:22:12.000 260 [lb_av] Systolic Blood Pressure 2024-12-05 12:43:00.000 135 mm [Hg] Systolic Blood Pressure 2024-11-07 11:14:00.000 140 mm [Hg] Diastolic Blood Pressure 2024-12-05 12:43:00.000 77 mm [Hg] Diastolic Blood Pressure 2024-11-07 11:14:00.000 80 mm [Hg] Plan of Treatment Planned Activity Planned Date Details Comments Future Scheduled Test SKILLED NU RSE TO EVALUATE PATIENT, IDENTIFY PRIMARY AND CO-MORBID CONDITIONS CODED PER CODING GUIDELINES, AND DEVELOP PATIENT SPECIFIC PLAN OF CARE THAT INCLUDES PATIENT GOAL FOR HOME HEALTH. [code = SKILLED NURSE TO EVALUATE PATIENT, IDENTIFY PRIMARY AND CO-MORBID CONDITIONS CODED PER CODING GUIDELINES, AND DEVELOP PATIENT SPECIFIC PLAN OF CARE THAT INCLUDES PATIENT GOAL FOR HOME HEALTH.] Future Scheduled Test SKILLED NU RSE TO PRE-POUR MEDICATION PER MEDICATION LIST 5WK8 [code = SKILLED NURSE TO PRE-POUR MEDICATION PER MEDICATION LIST 5WK8 ] Future Scheduled Test PATIENT DENIS Y HAVE ONE SET OF EMERGENCY MEDICATION NOT TO BE PRE-POURED ANY SOONER THAN 24 HOURS BEFORE SEVERE INCLEMENT WEATHER OR EMERGENT EVENT AND FOLLOWING SKILLED NURSE EVALUATION OF PATIENT SAFETY. [code = PATIENT MAY HAVE ONE SET OF EMERGENCY MEDICATION NOT TO BE PRE-POURED ANY SOONER THAN 24 HOURS BEFORE SEVERE INCLEMENT WEATHER OR EMERGENT EVENT AND FOLLOWING SKILLED NURSE EVALUATION OF PATIENT SAFETY.] Future Scheduled Test SKILLED NU RSE TO O/A OF PATIENTS MENTAL/BEHAVIORAL STATUS, ASSESS VITAL SIGNS 5WK8 ALLOW 2 PRNS FOR MEDICATION MANAGEMENT. [code = SKILLED NURSE TO O/A OF PATIENTS MENTAL/BEHAVIORAL STATUS, ASSESS VITAL SIGNS 5WK8 ALLOW 2 PRNS FOR MEDICATION MANAGEMENT.] Future Scheduled Test MEDICATION S WILL BE HELD AND STORED IN LOCKBOX [code = MEDICATIONS WILL BE HELD AND STORED IN LOCKBOX] Future Scheduled Test SKILLED NU RSE FOR O/A OF GENERAL HEALTH STATUS OF PAIN, CARDIAC, RESPIRATORY, GASTROINTESTINAL, GENITOURINARY, SKIN, NEUROLOGIC, ENDOCRINE SYSTEMS TO IDENTIFY CHANGES ASSOCIATED WITH EXACERBATION FOR EARLY INTERVENTION OF COMPLICATIONS WEEKLY [code = SKILLED NURSE FOR O/A OF GENERAL HEALTH STATUS OF PAIN, CARDIAC, RESPIRATORY, GASTROINTESTINAL, GENITOURINARY, SKIN, NEUROLOGIC, ENDOCRINE SYSTEMS TO IDENTIFY CHANGES ASSOCIATED WITH EXACERBATION FOR EARLY INTERVENTION OF COMPLICATIONS WEEKLY] Future Scheduled Test SKILLED NU RSE FOR O/A AND SKILLED TEACHING RELATED TO MANAGEMENT OF DEPRESSIVE SYMPTOMS AND/OR DEPRESSION. SN TO REPORT SIGNIFICANT CHANGE IN DEPRESSIVE SYMPTOMS TO CLINICAL PROVIDER FOR EARLY INTERVENTION. [code = SKILLED NURSE FOR O/A AND SKILLED TEACHING RELATED TO MANAGEMENT OF DEPRESSIVE SYMPTOMS AND/OR DEPRESSION. SN TO REPORT SIGNIFICANT CHANGE IN DEPRESSIVE SYMPTOMS TO CLINICAL PROVIDER FOR EARLY INTERVENTION.] Future Scheduled Test SKILLED NU RSE FOR O/A AND TEACHING OF DIABETIC MANAGEMENT INCLUDING BLOOD SUGAR MONITORING/USE OF GLUCOMETER, DIABETIC DIET, LOWER EXTREMITY SKIN INSPECTION, PROPER SKIN/FOOT CARE, AND SIGNS AND SYMPTOMS HYPO/HYPERGLYCEMIA TO REPORT. [code = SKILLED NURSE FOR O/A AND TEACHING OF DIABETIC MANAGEMENT INCLUDING BLOOD SUGAR MONITORING/USE OF GLUCOMETER, DIABETIC DIET, LOWER EXTREMITY SKIN INSPECTION, PROPER SKIN/FOOT CARE, AND SIGNS AND SYMPTOMS HYPO/HYPERGLYCEMIA TO REPORT.] Future Scheduled Test SKILLED NU RSE TO PROVIDE TEACHING ON SIGNS AND SYMPTOMS AND MANAGEMENT OF HYPERTENSION. [code = SKILLED NURSE TO PROVIDE TEACHING ON SIGNS AND SYMPTOMS AND MANAGEMENT OF HYPERTENSION.] Future Scheduled Test SKILLED NU RSE FOR O/A, TEACHING AND SELF-MANAGEMENT RELATED TO HEART FAILURE. INSTRUCT PATIENT/CAREGIVER ON SIGNS AND SYMPTOMS OF EXACERBATION TO REPORT. WEIGHT TO BE OBTAINED WEEKLY AND WEIGHT GAIN OF 2 LBS OVERNIGHT OR 5 LBS IN 1 WEEK TO BE REPORTED TO PHYSICIAN. IF UNABLE TO WEIGH PATIENT, SKILLED NURSE TO OBTAIN MEASUREMENT OF IN CM AT EACH VISIT AND REPORT AN INCREASE OF 1 CM TO PHYSICIAN. [code = SKILLED NURSE FOR O/A, TEACHING AND SELF-MANAGEMENT RELATED TO HEART FAILURE. INSTRUCT PATIENT/CAREGIVER ON SIGNS AND SYMPTOMS OF EXACERBATION TO REPORT. WEIGHT TO BE OBTAINED WEEKLY AND WEIGHT GAIN OF 2 LBS OVERNIGHT OR 5 LBS IN 1 WEEK TO BE REPORTED TO PHYSICIAN. IF UNABLE TO WEIGH PATIENT, SKILLED NURSE TO OBTAIN MEASUREMENT OF IN CM AT EACH VISIT AND REPORT AN INCREASE OF 1 CM TO PHYSICIAN.] Future Scheduled Test SKILLED NU RSE FOR O/A AND SKILLED TEACHING IN MANAGEMENT OF CHF CIRCULATORY/VASCULAR DISEASE. [code = SKILLED NURSE FOR O/A AND SKILLED TEACHING IN MANAGEMENT OF CHF CIRCULATORY/VASCULAR DISEASE.] Future Scheduled Test SKILLED NU RSE FOR O/A OF SELF-CARE DEFICITS AND TO PROVIDE TEACHING RELATED TO SAFE PROVISION OF ADLS. [code = SKILLED NURSE FOR O/A OF SELF-CARE DEFICITS AND TO PROVIDE TEACHING RELATED TO SAFE PROVISION OF ADLS.] Future Scheduled Test SKILLED NU RSE TO PERFORM HOME SAFETY AND FALL ASSESSMENT AND PROVIDE INSTRUCTION TO IMPLEMENT HOME SAFETY AND FALL PREVENTION STRATEGIES. [code = SKILLED NURSE TO PERFORM HOME SAFETY AND FALL ASSESSMENT AND PROVIDE INSTRUCTION TO IMPLEMENT HOME SAFETY AND FALL PREVENTION STRATEGIES.] Future Scheduled Test SKILLED NU RSE FOR OBSERVATION AND ASSESSMENT OF PATIENTS PAIN LEVEL AND EFFECTIVENESS OF PAIN MANAGEMENT REGIMEN. SKILLED NURSE TO INSTRUCT PATIENT/CAREGIVER REGARDING PHARMACOLOGIC AND NON-PHARMACOLOGIC PAIN CONTROL MEASURES. SKILLED NURSE TO REPORT TO PHYSICIAN IF PAIN IS UNCONTROLLED WITH CURRENT PAIN MANAGEMENT REGIMEN. [code = SKILLED NURSE FOR OBSERVATION AND ASSESSMENT OF PATIENTS PAIN LEVEL AND EFFECTIVENESS OF PAIN MANAGEMENT REGIMEN. SKILLED NURSE TO INSTRUCT PATIENT/CAREGIVER REGARDING PHARMACOLOGIC AND NON-PHARMACOLOGIC PAIN CONTROL MEASURES. SKILLED NURSE TO REPORT TO PHYSICIAN IF PAIN IS UNCONTROLLED WITH CURRENT PAIN MANAGEMENT REGIMEN.] Future Scheduled Test SKILLED NU RSE TO ASSESS PATIENT'S SKIN INTEGRITY AND INSTRUCT PATIENT/CAREGIVER ON MEASURES TO PREVENT PRESSURE ULCERS. [code = SKILLED NURSE TO ASSESS PATIENT'S SKIN INTEGRITY AND INSTRUCT PATIENT/CAREGIVER ON MEASURES TO PREVENT PRESSURE ULCERS.] Future Scheduled Test SKILLED NU RSE FOR O/A OF RESPIRATORY SYSTEM TO IDENTIFY CHANGES ASSOCIATED WITH EXACERBATION AND TO PROVIDE SKILLED TEACHING ON MANAGEMENT OF PLEURAL EFFUSION RESPIRATORY DISEASE PROCESS. [code = SKILLED NURSE FOR O/A OF RESPIRATORY SYSTEM TO IDENTIFY CHANGES ASSOCIATED WITH EXACERBATION AND TO PROVIDE SKILLED TEACHING ON MANAGEMENT OF PLEURAL EFFUSION RESPIRATORY DISEASE PROCESS.] Future Scheduled Test PHYSICAL T HERAPIST TO EVALUATE PATIENT FOR PT [code = PHYSICAL THERAPIST TO EVALUATE PATIENT FOR PT ] Future Scheduled Test OCCUPATION AL THERAPIST TO EVALUATE PATIENT FOR OT [code = OCCUPATIONAL THERAPIST TO EVALUATE PATIENT FOR OT] Future Scheduled Test SKILLED NU RSE FOR O/A, TEACHING AND MANAGEMENT OF CKD FOR EARLY IDENTIFICATION OF EXACERBATION OF DISEASE PROCESS [code = SKILLED NURSE FOR O/A, TEACHING AND MANAGEMENT OF CKD FOR EARLY IDENTIFICATION OF EXACERBATION OF DISEASE PROCESS] Future Scheduled Test SKILLED NU RSE TO PROVIDE TEACHING/REINFORCEMENT RELATED TO URINARY INCONTINENCE. [code = SKILLED NURSE TO PROVIDE TEACHING/REINFORCEMENT RELATED TO URINARY INCONTINENCE.] Future Scheduled Test PATIENT TONG S A RISK OF HOSPITALIZATION AND ED USE. SKILLED NURSE TO ESTABLISH SUPPORT MEASURES TO MINIMIZE RISK OF HOSPITALIZATION AND ED USE, AND INSTRUCT PATIENT/CAREGIVER ON METHODS TO REDUCE AVOIDABLE HOSPITALIZATION AND ED USE. [code = PATIENT HAS A RISK OF HOSPITALIZATION AND ED USE. SKILLED NURSE TO ESTABLISH SUPPORT MEASURES TO MINIMIZE RISK OF HOSPITALIZATION AND ED USE, AND INSTRUCT PATIENT/CAREGIVER ON METHODS TO REDUCE AVOIDABLE HOSPITALIZATION AND ED USE.] Future Scheduled Test SKILLED NU RSE TO REVIEW PATIENT MEDICATIONS. INSTRUCT PATIENT/CAREGIVER ON MONITORING OF EFFECTIVENESS, ADVERSE DRUG REACTIONS, SIDE EFFECTS OF ALL MEDICATIONS (PRESCRIPTION/-OTC), AND HOW AND WHEN TO REPORT PROBLEMS. [code = SKILLED NURSE TO REVIEW PATIENT MEDICATIONS. INSTRUCT PATIENT/CAREGIVER ON MONITORING OF EFFECTIVENESS, ADVERSE DRUG REACTIONS, SIDE EFFECTS OF ALL MEDICATIONS (PRESCRIPTION/-OTC), AND HOW AND WHEN TO REPORT PROBLEMS.] Future Scheduled Test SKILLED NU RSE FOR ADMINISTRATION AND TEACHING OF PRESCRIBED INJECTION THERAPY FOR INSULIN. [code = SKILLED NURSE FOR ADMINISTRATION AND TEACHING OF PRESCRIBED INJECTION THERAPY FOR INSULIN.] Future Scheduled Test SKILLED NU RSE FOR O/A AND SKILLED TEACHING RELATED TO SIGNS AND SYMPTOMS AND MANAGEMENT OF MUSCLE WEAKNESS [code = SKILLED NURSE FOR O/A AND SKILLED TEACHING RELATED TO SIGNS AND SYMPTOMS AND MANAGEMENT OF MUSCLE WEAKNESS ] Future Scheduled Test SKILLED NU RSE FOR O/A OF MUSCULOSKELETAL STATUS AND TEACHING ON MEASURES TO MANAGE FALL RISK AND TO MAINTAIN SAFETY WITH ACTIVITY [code = SKILLED NURSE FOR O/A OF MUSCULOSKELETAL STATUS AND TEACHING ON MEASURES TO MANAGE FALL RISK AND TO MAINTAIN SAFETY WITH ACTIVITY] Future Scheduled Test SKILLED NU RSE FOR O/A OF CLIENT'S SOCIAL ISOLATION AND PROVIDE ASSISTANCE TO CLIENT IN DEVELOPMENT OF PLANNED ACTIVITIES [code = SKILLED NURSE FOR O/A OF CLIENT'S SOCIAL ISOLATION AND PROVIDE ASSISTANCE TO CLIENT IN DEVELOPMENT OF PLANNED ACTIVITIES] Future Scheduled Test SKILLED NU RSE TO ASSESS PATIENTS PSYCHOSOCIAL STATUS TO IDENTIFY POTENTIAL ISSUES THAT MAY COMPLICATE THE PROVISION OF THE PLAN OF CARE INCLUDING THE PATIENTS ABILITY TO ACCESS COMMUNITY RESOURCES AND PSYCHOSOCIAL SUPPORT SERVICES. [code = SKILLED NURSE TO ASSESS PATIENTS PSYCHOSOCIAL STATUS TO IDENTIFY POTENTIAL ISSUES THAT MAY COMPLICATE THE PROVISION OF THE PLAN OF CARE INCLUDING THE PATIENTS ABILITY TO ACCESS COMMUNITY RESOURCES AND PSYCHOSOCIAL SUPPORT SERVICES.] Future Scheduled Test SKILLED NU RSE WILL MAINTAIN SITUATIONAL AWARENESS FOR SAFETY AND WILL NOTIFY CLINICAL CHIEF OF FIELD OPERATIONS AND PHYSICIAN/PROVIDER WITH ANY CHANGE IN CONDITION. [code = SKILLED NURSE WILL MAINTAIN SITUATIONAL AWARENESS FOR SAFETY AND WILL NOTIFY CLINICAL CHIEF OF FIELD OPERATIONS AND PHYSICIAN/PROVIDER WITH ANY CHANGE IN CONDITION.] Future Scheduled Test SKILLED NU RSE TO PROVIDE INSTRUCTION TO PATIENT/CAREGIVER RELATED TO DISCHARGE PLANNING. [code = SKILLED NURSE TO PROVIDE INSTRUCTION TO PATIENT/CAREGIVER RELATED TO DISCHARGE PLANNING.] Goal Patient Goal - P ATIENT VERBALIZED GOAL OF IMPROVING STRENGTH AND ENDURANCE Goal Provider Goal - A PLAN OF CARE WILL BE ESTABLISHED THAT MEETS PATIENT'S RESIDENTIAL NEEDS AND INCLUDES PATIENT GOAL FOR HOME HEALTH. Goal Provider Goal - PATIENT WILL COMPLY WITH MEDICATION WHEN SKILLED NURSE PRE-POURS MEDICATION THROUGHOUT CERTIFICATION PERIOD. Goal Provider Goal - MEDICATION WILL BE AVAILABLE DURING INCLEMENT WEATHER OR EMERGENT EVENT THROUGHOUT CERTIFICATION PERIOD. Goal Provider Goal - ALTERED MENTAL/BEHAVIORAL STATUS WILL BE IDENTIFIED PROMPTLY AND INTERVENTION INITIATED QUICKLY TO MINIMIZE ASSOCIATED RISKS THROUGHOUT CERTIFICATION PERIOD. Goal Provider Goal - MEDICATION WILL BE STORED IN LOCKBOX FOR SAFETY. Goal Provider Goal - CHANGE IN GENERAL HEALTH STATUS WILL BE IDENTIFIED AND REPORTED TO PHYSICIAN FOR PROMPT INTERVENTION TO MINIMIZE ASSOCIATED RISKS THROUGHOUT CERTIFICATION PERIOD. Goal Provider Goal - PATIENT WILL REMAIN SAFE WITHOUT DECOMPENSATION IN DEPRESSIVE CONDITION, WHILE MAINTAINING OPTIMAL LEVEL OF MENTAL HEALTH AND WELL BEING THROUGHOUT CERTIFICATION PERIOD. Goal Provider Goal - PATIENT/CAREGIVER WILL VERBALIZE/DEMONSTRATE KNOWLEDGE OF DIABETIC MANAGEMENT. CHANGES IN DIABETIC STATUS WILL BE IDENTIFIED AND REPORTED TO PHYSICIAN FOR PROMPT INTERVENTION THROUGHOUT THE CERTIFICATION PERIOD. Goal Provider Goal - PATIENT/CAREGIVER WILL VERBALIZE SIGNS AND SYMPTOMS OF HYPERTENSION AND WILL BE ABLE TO DEMONSTRATE ABILITY TO MANAGE EXACERBATION BY END OF THE EPISODE. Goal Provider Goal - PATIENT/CAREGIVER WILL VERBALIZE/DEMONSTRATE KNOWLEDGE AND MANAGEMENT OF HEART FAILURE DISEASE PROCESS BY END OF EPISODE. Goal Provider Goal - PATIENT/CAREGIVER WILL VERBALIZE/DEMONSTRATE THE ABILITY TO MANAGE CHF CIRCULATORY DISEASE PROCESS AND EXACERBATIONS WILL BE IDENTIFIED FOR EARLY INTERVENTION THROUGHOUT THE CERTIFICATION PERIOD. Goal Provider Goal - PATIENT/CAREGIVER WILL VERBALIZE/DEMONSTRATE UNDERSTANDING OF SAFE PROVISION OF ADLS BY THE END OF THE CERTIFICATION PERIOD. Goal Provider Goal - PATIENT/CAREGIVER WILL VERBALIZE/DEMONSTRATE EFFECTIVE HOME SAFETY AND FALL PREVENTION STRATEGIES THROUGHOUT CERTIFICATION PERIOD. Goal Provider Goal - PATIENT/CAREGIVER WILL DEMONSTRATE UNDERSTANDING OF PHARMACOLOGIC AND NONPHARMACOLOGIC PAIN CONTROL MEASURES AND PATIENT WILL HAVE IMPROVEMENT IN PAIN INTERFERING WITH ACTIVITY EVIDENCED BY PAIN CONTROLLED AT LEVEL OF 0 OR LESS BY END OF CERTIFICATION PERIOD. Goal Provider Goal - PATIENT/CAREGIVER WILL VERBALIZE UNDERSTANDING OF PRESSURE ULCER PREVENTION BY END OF THE EPISODE. Goal Provider Goal - PATIENT/CAREGIVER WILL VERBALIZE/DEMONSTRATE MANAGEMENT OF PLEURAL EFFUSION RESPIRATORY DISEASE PROCESS. CHANGES IN RESPIRATORY STATUS WILL BE IDENTIFIED AND REPORTED TO PHYSICIAN FOR PROMPT INTERVENTION THROUGHOUT THE CERTIFICATION PERIOD. Goal Provider Goal - A PHYSICAL THERAPY EVALUATION TO BE COMPLETED WITH RECOMMENDATIONS AND/OR WRITTEN PLAN OF TREATMENT ESTABLISHED FOR PHYSICIANS SIGNATURE. Goal Provider Goal - OCCUPATIONAL THERAPY EVALUATION TO BE COMPLETED WITH RECOMMENDATIONS AND WRITTEN PLAN OF TREATMENT ESTABLISHED FOR THE PHYSICIANS SIGNATURE. Goal Provider Goal - PATIENT/CAREGIVER WILL VERBALIZE UNDERSTANDING OF CKD GENITOURINARY DISEASE PROCESS, AND EXACERBATIONS OF GENITOURINARY DISEASE WILL BE PROMPTLY IDENTIFIED FOR EARLY INTERVENTION THROUGHOUT THE CERTIFICATION PERIOD. Goal Provider Goal - PATIENT / CAREGIVER WILL VERBALIZE UNDERSTANDING OF EFFECTS OF URINARY INCONTINENCE BY THE END OF THE CERTIFICATION PERIOD. Goal Provider Goal - PATIENT WILL HAVE SUPPORT MEASURES ESTABLISHED TO PREVENT HOSPITALIZATION AND ED USE AND PATIENT/CAREGIVER WILL VERBALIZE/DEMONSTRATE METHODS TO REDUCE AVOIDABLE HOSPITALIZATION AND ED USE BY END OF EPISODE. Goal Provider Goal - PATIENT/CAREGIVER WILL VERBALIZE UNDERSTANDING OF EDUCATION PROVIDED ON MEDICATIONS BY THE END OF THE CERTIFICATION PERIOD. Goal Provider Goal - PATIENT WILL RECEIVE INSULIN ORDERED. PATIENT/CAREGIVER WILL VERBALIZE/DEMONSTRATE KNOWLEDGE OF INJECTION THERAPY BY THE END OF THE CERTIFICATION PERIOD. Goal Provider Goal - PATIENT/CAREGIVER WILL VERBALIZE UNDERSTANDING OF MUSCLE WEAKNESS MUSCULOSKELETAL DISEASE INCLUDING SIGNS AND SYMPTOMS, MANAGEMENT, AND PRESCRIBED TREATMENT REGIMEN BY END OF EPISODE. Goal Provider Goal - PATIENT/CAREGIVER WILL VERBALIZE/DEMONSTRATE ABILITY TO MANAGE FALL RISK MUSCULOSKELETAL DISEASE WHILE MAINTAINING SAFETY THROUGHOUT THE EPISODE. Goal Provider Goal - PATIENT WILL DEMONSTRATE AN INCREASED INTEREST IN SOCIALIZATION AND ACTIVITIES BY THE END OF THE CERTIFICATION PERIOD. Goal Provider Goal - PSYCHOSOCIAL NEEDS WILL BE IDENTIFIED AND PLAN IMPLEMENTED TO MINIMIZE RISK THROUGHOUT CERTIFICATION PERIOD. Goal Provider Goal - PATIENT WILL REMAIN SAFE IN THE COMMUNITY AND WILL BE FREE OF DANGER TO SELF AND OTHERS THROUGHOUT THE CERTIFICATION PERIOD. Goal Provider Goal - PATIENT/CAREGIVER WILL VERBALIZE UNDERSTANDING OF DISCHARGE PLANNING INSTRUCTIONS BY DATE OF DISCHARGE. Encounters Start Date/Time End Date/Time Encounter Type Admission Type Attending [facility] Care Department Encounter ID Discharge Date Discharge Status Discharge Condition Discharge Reason Percent Goals Met 2024-11-07 00:00:00 2025-01-05 00:00:00 Outpatient COURT[facility] RHOADES [facility] [id number]
--- OUTSIDE RECORDS SUMMARY | 2024-12-21 14:20 | XMS_ITS | Continuity of Care Document ---
Author Organization [facility] ter Address [address] [place] [address]- Care Team Providers Care Seismic Engineer Name Role Phone Rafat CAREY, Almas Lea Primary Care Physician [phone] [place] [facility] [place]): [place] - 12/18/[address] [address]- Discharge Disposition: A-D/C Home Attending Physician: Ashley Polanco MD Admitting Physician: Ashley Polanco MD Referring Physician: Not on Staff, Referring MD Encounter Type: Disch Obv Allergies, Adverse Reactions, Alerts No Known Allergies [...] 08/17/16 Give n influenza virus vaccine, inactivated 06/30/13 Give n pneumococcal 20-valent conjugate vaccine 08/30/23 Given [id number] 12y+ bivalent booster vax 07/13/22 Given SARS-CoV-2 [...] 1Per MRI 05/31/2011 at [facility]. L5-S1 grade 1 anterior spondylolisthesis with milddisc bulge causing marked foraminal stenosis with encroachment on L5 nerve root 2Per MRI 05/31/2011 at L2-3 and L3-4 306/14: Positional dependent DON. AHI index was 9.3 per hour. The supine AHI is 72.0 per hour. Results Radiology Reports * Exam Date Time Procedure Performing Provider Status 12/18/24 12:00 PM Chest 2 Views Frontal and Lat Jason Bocanegra (Verified) Notes: (Chest 2 Views Frontal and Lat) Reason For Exam: Shortness of Breath RESULT: Chest 2 Views Frontal and Lat Chest 2 Views Frontal and Lat Hx of Present Illness: covid for 2 weeks, had pneumonia last month. Given antibiotics. Now reporting SOB on exertion, dizziness, weakness. Productive cough; Reason: Shortness of Breath; Clinical Question(s): CHF COMPARISON: 12/06/2024 FINDINGS: LINES AND TUBES: None. LUNGS AND PLEURA: Clear lungs. Normal pulmonary vascularity. No pleural effusion. No pneumothorax. HEART, MEDIASTINUM AND JACKY: Heart is normal in size. Normal mediastinal and hilar contour. BONES AND SOFT TISSUES: No acute abnormality. Chronic healed right right fifth rib fracture. IMPRESSION: No acute abnormality. WSN: [id number] Ordering Physician: Alvaro Cosby Dictated By: Dylan Solis MD Dictated Date/Time: 12/18/24 12:33 p Reviewed By: Dylan Solis MD Signed By: Dylan Solis MD Signed Date/Time: 12/18/24 12:33 pm Transcribed By: BHUPENDRA Transcribed Date/Time: 12/18/24 12:31 pm Vital Signs Most recent to oldest [Reference Range]: 1 2 3 Oxygen Saturation [94-100 %] 95 % (12/18/24 3:06 PM) 90 % *L* (12/18/24 3:00 PM) 95 % (12/18/24 1:08 PM) Pulse Rate [55-90 bpm] 96 bpm *H* (12/18/24 3:06 PM) 98 bpm *H* (12/18/24 1:08 PM) 96 bpm *H* (12/18/24 10:42 AM) Blood Pressure [90-138/55-84 mm Hg] 126/68mm Hg (12/18/24 3:06 PM) 126/68mm Hg (12/18/24 1:08 PM) 167/68mm Hg *H* (12/18/24 10:42 AM) Respiratory Rate [16-30 br/min] 19 br/min (12/18/24 3:06 PM) 18 br/min (12/18/24 1:08 PM) 16 br/min (12/18/24 10:42 AM) Temperature [96.8-100.4 DegF] 97.8 DegF (12/18/24 10:42 AM) Liters per Minute 2 L/min (12/18/24 3:06 PM) Mode of Delivery (Oxygen) Nasal cannula (12/18/24 3:06 PM) Room air (12/18/24 3:00 PM) Room air (12/18/24 1:08 PM) Temperature Route Oral (12/18/24 10:42 AM) Social History Social History Type Response Smoking Status Interested in cessat ion: No;10 or more cigarettes (1/2 pack or more)/day in last 30 days; Patient wants NRT during admission Yes entered on: 08/04/24 Sex Sex Representation Male (finding) EKG study * Event Display: ECG 12-Lead Authored Date: Please click on pdf link to open report * Event Display: ECG 12-Lead Authored Date: Ventricular Rate: 113 BPM QRS Duration: 132 ms Q-T Interval: 394 ms QTC Calculation(Bazett): 540 ms R Nipomo: 101 degrees T Nipomo: -17 degrees Atrial fibrillation with rapid ventricular response Right bundle branch block T wave abnormality, consider inferior ischemia Abnormal ECG When compared with ECG of 05-Dec-2024 18:37, T wave inversion now evident in Anterior leads Confirmed by Randy Alejo ([id number]) on 12/18/2024 12:54:15 PM [facility] [place]: Randy Alejo * Event Display: EKG Authored Date: Note * Esteban Martinez MD: PERFORM Event Display: Discharge/Transfer Note Hospital Authored Date: [id number] Patient: ??CHARLIE SARKAR ? Age:??69 Years?Sex:??Male?:??1955?? Discharge Diagnosis: Shortness of breath ?? HPI: This is a 69-year-old male with history of hypertension, hyperlipidemia, diabetes, HFpEF, A-fib on Xarelto, GERD, DON, seen here yesterday for a knee abrasion, now presenting with shortness of breath. ?? The patient tells me he slept on some cushions on the floor last night because he was too tired to take himself to bed. ?? This morning, he noted chills and shortness of breath. No cough. No fevers. He has been using inhalers at home with no help. ?? His son was worried about him and told him he has to go to the ED. ?? No swelling. He reports adherence with his medications including torsemide. ?? He also complains of back pain. He gives various timelines for back pain, from several weeks to four days. 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 ?? In the ED: Temperature?97.8 ?(10:44) Systolic Blood Pressure?126 ?(15:07) Diastolic Blood Pressure?68 ?(15:07) Pulse?96 ?(15:07) SpO2?95?room air Respiratory Rate?19 ?(15:07) WBC 10.8 HGB 11.5 K 4.0 Cr 1.1 glu 312 LFTs flat BNP 1000 (at baseline) trop 43 (at baseline) CXR unremarkable He was given duonebs, lasix 40mg IV x1 and solumedrol ?? ROS: As above, rest of full review negative. ?? PMH: Cataract Degenerative spondylolisthesis Herniated disc Anticoagulated Bipolar disorder Caregiver role strain Chronic atrial fibrillation on Xarelto Chronic diastolic heart failure Cognitive changes Current drinker Depression with anxiety Diabetic nephropathy with microalbuminuria Diabetic neuropathy Falls frequently GERD (gastroesophageal reflux disease) Hyperlipidemia Hypertension Laceration of forehead Low back pain with radiation Morbid obesity with BMI of 40.0-44.9, adult Obese class I Obstructive sleep apnea Pain of shoulder after trauma Pleural effusion Secondary hypercoagulable state Type 2 diabetes mellitus with neuropathy and nephropathy, uncontrolled social lissues: karlie broke up wiht him, and he lsot [employer] business ?? MEDS: Atorvastatin (atorvastatin 40 mg oral tablet)??1 tab(s) 40 Milligram By Mouth Daily at bedtime BusPIRone (busPIRone 15 mg oral tablet)??1 tab(s) 15 Milligram By Mouth 2 times a day for 30 Days Clopidogrel (clopidogrel 75 mg oral tablet)??75 Milligram By Mouth Daily for 90 Days Digoxin (digoxin 0.125 mg oral tablet)??1 tablet By Mouth Daily Divalproex Sodium (divalproex sodium 250 mg oral enteric coated tablet)??250 Milligram By Mouth 2 times a day for 30 Days empagliflozin (Jardiance 25 mg oral tablet)??1 tab(s) 25 Milligram By Mouth Daily in AM Fluoxetine (FLUoxetine 40 mg oral capsule)??1 capsule 40 Milligram By Mouth Daily for 30 Days Furosemide (Lasix 40 mg oral tablet)??40 Milligram 1 tablet By Mouth Daily for 60 Days Insulin Glargine (Insulin Glargine Solostar Pen 100 units/mL subcutaneous solution)??30 unit(s) Subcutaneous Injection Daily in the morning. Insulin Lispro (Humalog Kwik Pen 100 units/mL subcutaneous injection)??See Instructions Subcutaneous Infusion for 30 Days INJECT THREE TIMES A DAY BEFORE MEALS PER SLIDING SCALE:101-150 ??2 -891 ??4 [id number] ??6 [id number] ??8 -285 ??10 -899 ??12 unitsMax daily dose 36units. Call PCP if sugar >300E11.9 Lisinopril (lisinopril 10 mg oral tablet)??1 tablet By Mouth Daily Metformin (metFORMIN 500 mg oral tablet, extended release)??1 tab(s) 500 Milligram By Mouth 2 timesa day Metoprolol (Metoprolol Succinate ER 100 mg oral tablet, extended release)??100 Milligram 1 tablet By Mouth Daily for 60 Days Omeprazole (omeprazole 40 mg oral enteric coated capsule)??1 capsule By Mouth Daily Pregabalin (pregabalin 200 mg oral capsule)??TAKE 1 CAPSULE BY MOUTH 3 TIMES A DAY rivaroxaban (Xarelto 20 mg oral tablet)??90 each, 0 Refill(s), TAKE 1 TABLET BY MOUTH EVERY EVENING tirzepatide (Mounjaro 15 mg/0.5 mL subcutaneous solution)??15 Milligram Subcutaneous Injection Every week rotate injection sites Trazodone (traZODone 50 mg oral tablet)??50 Milligram 1 tablet By Mouth Daily at bedtime ?? Social: Lives independently ?? EXAM: Temperature?97.8 ?(10:44) Systolic Blood Pressure?126 ?(15:07) Diastolic Blood Pressure?68 ?(15:07) Pulse?96 ?(15:07) SpO2?95 ?(15:07) Respiratory Rate?19 ?(15:07) GEN: Comfortable in bed HEENT: Moist membranes HEART: Warm extremities LUNGS: Breathing comfortably room air ABD: Soft, nontender : No medeiros EXT: Warm, no edema NEURO: Alert, oriented x3 PSYCH: Calm and cooperative ? Assessment and Plan: 69-year-old male with history of hypertension, hyperlipidemia, diabetes, HFpEF, A-fib on Xarelto, GERD, DON, seen here yesterday for a knee abrasion, now presenting with shortness of breath. ?? # Shortness of breath # COPD No signs of COPD exacerbation, no signs of pulm edema, satting well on room air and speaking voluminously without respiratory deficit. CXR clear. THere is no indication to hospitalize him, he agrees with discharge home to continue his home regimen of inhalers and torsemide. ?? # Back pain Appears to be acute on chronic. He is reluctant to give additional details. He is discharged without opiates. ?? CHRONIC ISSUES: No medication changes. Patient Care team information Care Team Personnel Name: Taryn Brito RN Position: [facility] RN Member Role: Primary Care Nurse Name: Femi Shaikh RN Position: [facility] RN Member Role: Primary Care Nurse Name: Lance Reyes RN Position: [facility] RN Member Role: Primary Care Nurse Name: Iza Montes RN Position: [facility] RN Supv Member Role: Primary Care Nurse Name: Pretty Kaufman RN Position: [facility] RN Member Role: Primary Care Nurse Name: Edvin David RN Position: [facility] RN Member Role: Primary Care Nurse Name: Sebas Bahena RN Position: [facility] RN Member Role: Primary Care Nurse Name: Aristides Veliz RN Position: [facility] RN Member Role: Primary Care Nurse Name: Swetha Henderson RN Position: [facility] AMB Nurse Member Role: Primary Care Nurse Name: Matthew Mehta RN Position: [facility] RN Member Role: Primary Care Nurse Name: Reginald Cid RN Position: [facility] RN Member Role: Primary Care Nurse Name: Sanjana Newell NP Position: [facility] PCO Associate Professional Member Role: Primary Care Nurse Address: [address] [place] [address] Telecom: Name: Taryn Marie RN Position: [facility] RN Member Role: Primary Care Nurse Name: Andreas Kidd RN Position: [facility] SN RN Member Role: Primary Care Nurse Name: Mayuri Goss RN Position: [facility] RN Member Role: Primary Care Nurse Name: María Rivas RN Position: [facility] RN Member Role: Primary Care Nurse Name: Conchis Monzon RN Position: [facility] SN RN Member Role: Primary Care Nurse Name: Tree Pantoja RN Position: [facility] RN Member Role: Primary Care Nurse Name: Kristina Wilson RN Position: [facility] RN Member Role: Primary Care Nurse Name: Sofiya Card RN Position: [facility] SN RN Member Role: Primary Care Nurse Name: Randy Kruse RN Position: [facility] RN Member Role: Primary Care Nurse Name: Helga Aguiar RN Position: [facility] VOLODYMYR RN W/OE and Tasks Member Role: Primary Care Nurse Name: Kristie King RN Position: [facility] RN Member Role: Primary Care Nurse Name: Nesha Soriano RN Position: [facility] RN Member Role: Primary Care Nurse Name: Merced Malhotra RN Position: [facility] RN Member Role: Primary Care Nurse Name: Tate Magaña RN Position: [facility] RN Member Role: Primary Care Nurse Name: Nafisa Rodriguez RN Position: [facility] RN Member Role: Primary Care Nurse Name: Janel Stuart RN Position: [facility] Hospital Sheep Killer Member Role: Primary Care Nurse Name: Nafisa Mathur RN Position: [facility] Sheep Killer Member Role: Primary Care Nurse Name: Almas Douglass MD Position: [facility] Physician - Primary Care Member Role: PCP Address: [address] [place], [place] [address] Telecom: Name: Tate Tobar RN Position: [facility] RN Member Role: Primary Care Nurse Name: Clifton Palma RN Position: [facility] ED RN W/OE and Tasks Member Role: Primary Care Nurse Name: Serge Heath RN Position: [facility] SN RN Member Role: Primary Care Nurse Name: Addi Zhang RN Position: [facility] RN Member Role: Primary Care Nurse Name: Josh Birch RN Position: [facility] RN Member Role: Primary Care Nurse Name: Daly Hodges RN Position: [facility] RN Member Role: Primary Care Nurse Care Team Related Persons Name: FELICIA, JUDY Name: BENI CHAND Name: ROCKY SARKAR Name: ILAN SARKAR Name: TABITHA SARKAR Insurance Providers Guarantor name: CHARLIE MELLO Health Plan Information #: 1 Payer: [facility] [employer] [facility] Member Number: [id number] Policy Number: NA Group Number: [id number] Health Plan Information #: 2 Payer: [facility] Member Number: [id number] Policy Number: NA Group Number: [id number]
--- OUTSIDE RECORDS SUMMARY | 2024-12-21 14:20 | XMS_ITS | Encounter Summary ---
Author Organization [employer] Address [address] [place] [address] Care Team Providers Care Wood Heel Cementer Name Role Phone Josh Dumont MD Primary Care Provider Encounter Details Date Type Department Care Team (Late st Contact Info) Description 12/11/[address] [facility] - [facility] Lab [address] [facility] [place] [address] Josh Dumont MD [address] [place] [address] Unspecified atrial fibrillation (CMS/HCC); Type 1 diabetes [...] pcg/mL LAB CHEMISTRY METHOD 12/11/2024 10:26 AM [facility] Blood Venous blood specimen / Unknown Venipuncture / Unknown 12/11/2024 5:15 AM EDT 12/11/2024 9:28 AM EDT us Josh Dumont MD LAB BLOOD ORDERABLES Final R esult [facility] [address] [place] [address], * (ABNORMAL) Basic metabolic panel (12/11/2024 5:15 AM EDT) Pathologist [facility] Sodium 136 133 - 145 mmol/L LAB CHEMISTRY METHOD 12/11/2024 10:21 AM [facility] Potassium 4.6 3.5 - 5.5 mmol/L LAB CHEMISTRY METHOD 12/11/2024 10:21 AM [facility] Chloride 98 96 - 110 mmol/L LAB CHEMISTRY METHOD 12/11/2024 10:21 AM [facility] CO2 29 21 - 32 mmol/L LAB CHEMISTRY METHOD 12/11/2024 10:21 AM [facility] Anion Gap 9 3 - 11 LAB CHEMISTRY METHOD 12/11/2024 10:21 AM [facility] Glucose 165(H) 70 - 100 mg/dL LAB CHEMISTRY METHOD 12/11/2024 10:21 AM [facility] BUN 23 5 - 25 mg/dL LAB CHEMISTRY METHOD 12/11/2024 10:21 AM [facility] Creatinine 1.14 0.70 - 1.30 mg/dL LAB CHEMISTRY METHOD 12/11/2024 10:21 AM EDT [facility] eGFR 70 >=60 mL/min/1. 73m2 LAB CHEMISTRY METHOD 12/11/2024 10:21 AM EDT [facility] Comment:Calculation based on the??Chronic Kidney Disease Epidemiology Collaboration (CKD-EPI) equation refit??without adjustment for race. BUN/Creatinine Ratio 20.2 LAB CHEMISTRY METHOD 12/11/2024 10:21 AM EDT [facility] Calcium 9.5 8.5 - 10.5 mg/dL LAB CHEMISTRY METHOD 12/11/2024 10:21 AM EDT [facility] Blood Venous blood specimen / Unknown Venipuncture / Unknown 12/11/2024 5:15 AM EDT 12/11/2024 9:28 AM EDT us Josh Dumont MD LAB BLOOD ORDERABLES Final R esult [facility] [address] [place] [address], * (ABNORMAL) Complete blood count (12/11/2024 5:15 AM EDT) WBC 10.1 4.8 - 10.8 K/mcL LAB HEMETOLOGY METHOD 12/11/2024 9:42 AM T [facility] RBC 4.40(L) 4.50 - 5.50 M/mcL LAB HEMETOLOGY METHOD 12/11/2024 9:42 AM EDT [facility] Hemoglobin 11.6(L) 13.5 - 17.5 g/dL LAB HEMETOLOGY METHOD 12/11/2024 9:42 AM T [facility] Hematocrit 37.2(L) 42.0 - 54.0 % LAB HEMETOLOGY METHOD 12/11/2024 9:42 AM EDT [facility] MCV 85.5 79.0 - 98.0 FL LAB HEMETOLOGY METHOD 12/11/2024 9:42 AM EDT [facility] MCH 26.7(L) 27.0 - 32.0 pcg LAB HEMETOLOGY METHOD 12/11/2024 9:42 AM EDT [facility] MCHC 31.2(L) 32.0 - 37.0 g/dL LAB HEMETOLOGY METHOD 12/11/2024 9:42 AM EDT [facility] RDW 17.2(H) 11.0 - 15.0 % LAB HEMETOLOGY METHOD 12/11/2024 9:42 AM EDT [facility] Platelets 306 130 - 400 K/mcL LAB HEMETOLOGY METHOD 12/11/2024 9:42 AM EDT [facility] MPV 10.3 7.0 - 11.0 FL LAB HEMETOLOGY METHOD 12/11/2024 9:42 AM EDT [facility] NRBC 0.0 <1.0 % LAB HEMETOLOGY METHOD 12/11/2024 9:42 AM EDT [facility] NRBC Absolute 0.00 <0.10 K/mcL LAB HEMETOLOGY METHOD 12/11/2024 9:42 AM T [facility] Blood Venous blood specimen / Unknown Venipuncture / Unknown 12/11/2024 5:15 AM EDT 12/11/2024 9:28 AM EDT us Josh Dumont MD LAB BLOOD ORDERABLES Final R esult [facility] [address] [place] [address], documented in this encounter Visit Diagnoses Diagnosis Unspecified atrial fibrillation (CMS/HCC) Type 1 diabetes mellitus, presymptomatic, unspecified Chronic systolic (congestive) heart failure documented in this encounter Care Teams Wood Heel Cementer Relationship Specialty Start Date End Date Josh Dumont MD [address] [place] [id number] PCP - General Family Medicine 11/29/24 documented as of this encounter
[2024-12-21 14:26] VITALS: BMI 36.9
[2024-12-21 14:30] VITALS: BP 149/74; PULSE 52; TEMP 36.3; O2SAT 97
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
[2024-12-21 18:44] VITALS: BP 174/90; PULSE 80; RESP 18; TEMP 36.2; O2SAT 96
[2024-12-21 19:52] VITALS: BP 180/86; PULSE 74; RESP 15; TEMP 36.6; O2SAT 96
[2024-12-21 20:30] LABS: Glucose, Whole Blood 374 mg/dL (60-115)
[2024-12-21 20:44] VITALS: BP 145/75
[2024-12-21] MEDS: Insulin Lispro 100 UNIT/ML 3 ML VIAL SUBCUT (21:08)
[2024-12-21] MEDS: busPIRone HCl 5 MG TABLET 15 MG PO (21:10)
[2024-12-21] MEDS: Divalproex Sodium 250 MG TABLET.DR PO (21:10)
[2024-12-21] MEDS: Pregabalin 200 MG CAPSULE PO (21:10)
[2024-12-21] MEDS: traZODone HCL 50 MG TABLET PO (21:11)
[2024-12-21 22:24] LABS: Glucose, Whole Blood 372 mg/dL (60-115)
[2024-12-22] MEDS: Pantoprazole Sodium 20 MG TABLET.DR 40 MG PO (06:42)
[2024-12-22 07:41] VITALS: BP 169/92; PULSE 66; RESP 18; TEMP 36.6; O2SAT 95
[2024-12-22 07:48] LABS: Cholesterol 158 mg/dL (<200); HDL Cholesterol 31 mg/dL (>40); LDL Cholesterol Calculated 66 mg/dL (<100); Triglycerides 307 mg/dL (<150)
[2024-12-22 08:00] LABS: Glucose, Whole Blood 275 mg/dL (60-115)
[2024-12-22] MEDS: Insulin Lispro 100 UNIT/ML 3 ML VIAL SUBCUT ×4 (08:17→22:30)
[2024-12-22] MEDS: Insulin Glargine,Hum.rec.anlog 100 UNIT/ML 10 ML VIAL 30 UNIT SUBCUT (08:19)
[2024-12-22] MEDS: Pregabalin 200 MG CAPSULE PO ×3 (08:20→20:59)
[2024-12-22] MEDS: lisinopriL 10 MG TABLET PO (08:20)
[2024-12-22] MEDS: busPIRone HCl 5 MG TABLET 15 MG PO ×2 (08:20→21:00)
[2024-12-22] MEDS: Torsemide 20 MG TABLET PO (08:21)
[2024-12-22] MEDS: FLUoxetine HCl 20 MG CAPSULE 40 MG PO (08:21)
[2024-12-22] MEDS: Metoprolol Succinate ER 100 MG TAB.ER.24H PO (08:21)
[2024-12-22] MEDS: Empagliflozin 25 MG TABLET PO (08:21)
[2024-12-22] MEDS: Digoxin 0.125 MG TABLET PO (08:21)
[2024-12-22] MEDS: metFORMIN HCl 500 MG TABLET PO ×2 (08:22→17:42)
[2024-12-22] MEDS: Clopidogrel Bisulfate 75 MG TABLET PO (08:22)
[2024-12-22] MEDS: Divalproex Sodium 250 MG TABLET.DR PO ×2 (08:22→21:00)
[2024-12-22] MEDS: Rivaroxaban 20 MG TABLET PO (08:22)
[2024-12-22] MEDS: Tiotropium Bromide 2.5 mcg 1 PUFF/2.5 MCG MIST.INHAL 2 PUFF INHALE (08:29)
[2024-12-22 08:46] LABS: Estimated Average Glucose 212 mg/dL; Hemoglobin A1C 229.0844 umol/L; Total Hemoglobin (HGBA1C) 3079.2461 umol/L
[2024-12-22 09:45] VITALS: BP 140/64; PULSE 75; RESP 18; O2SAT 97
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
[2024-12-22 11:27] LABS: Glucose, Whole Blood 323 mg/dL (60-115)
[2024-12-22 17:19] LABS: Glucose, Whole Blood 401 mg/dL (60-115)
[2024-12-22] MEDS: hydrOXYzine HCL 25 MG TABLET PO (20:59)
[2024-12-22] MEDS: Acetaminophen 325 MG TABLET 650 MG PO (20:59)
[2024-12-22] MEDS: traZODone HCL 50 MG TABLET PO (20:59)
[2024-12-22 21:26] LABS: Glucose, Whole Blood 401 mg/dL (60-115)
[2024-12-22 21:30] VITALS: BP 188/80; PULSE 73; RESP 14; TEMP 36.4; O2SAT 98
[2024-12-22 22:00] VITALS: BP 186/80; PULSE 74
[2024-12-22 22:29] VITALS: BP 188/80
[2024-12-22] MEDS: amLODIPine Besylate 5 MG TABLET PO (22:29)
--- NOTE | 2024-12-22 23:10 | PC.NURSE ---
HIGH BP. @ 2200 Pt BP elevated at 188/80, manual pressure 186/80. Pt POC 401. Provider notified via [employer]. Pt with hx Afib, HTN. Provider ordered one time amlodipine PO at this time.
[2024-12-22 23:35] VITALS: BP 128/60; PULSE 80
--- NOTE | 2024-12-23 07:00 | EEG_ITS ---
FINDINGS: Waking background activity consists of a diffuse 5 to 6 Hz theta. Photic stimulation is without activation. No sleep stages are identified. IMPRESSION: This is an abnormal EEG due to diffuse background slowing, consistent with the diffuse encephalopathic process. MD VICTORINA Jc/ALONA / [id number]
[2024-12-23] MEDS: Pantoprazole Sodium 20 MG TABLET.DR 40 MG PO (07:06)
[2024-12-23 07:46] LABS: Glucose, Whole Blood 240 mg/dL (60-115)
[2024-12-23 08:00] VITALS: BP 135/63; PULSE 79; TEMP 36.6; O2SAT 93
[2024-12-23 08:36] VITALS: BP 135/63
[2024-12-23] MEDS: Tiotropium Bromide 2.5 mcg 1 PUFF/2.5 MCG MIST.INHAL 2 PUFF INHALE (08:36)
[2024-12-23] MEDS: lisinopriL 10 MG TABLET PO (08:36)
[2024-12-23 08:37] VITALS: BP 135/63
[2024-12-23] MEDS: Clopidogrel Bisulfate 75 MG TABLET PO (08:37)
[2024-12-23] MEDS: Torsemide 20 MG TABLET PO (08:37)
[2024-12-23] MEDS: FLUoxetine HCl 20 MG CAPSULE 40 MG PO (08:38)
[2024-12-23] MEDS: Divalproex Sodium 250 MG TABLET.DR PO ×2 (08:38→22:15)
[2024-12-23] MEDS: Pregabalin 200 MG CAPSULE PO ×3 (08:38→22:15)
[2024-12-23 08:39] VITALS: BP 135/63; PULSE 79
[2024-12-23] MEDS: Metoprolol Succinate ER 100 MG TAB.ER.24H PO (08:39)
[2024-12-23] MEDS: metFORMIN HCl 500 MG TABLET PO ×2 (08:39→16:45)
[2024-12-23] MEDS: Digoxin 0.125 MG TABLET PO (08:40)
[2024-12-23] MEDS: Empagliflozin 25 MG TABLET PO (08:40)
[2024-12-23] MEDS: busPIRone HCl 5 MG TABLET 15 MG PO ×2 (08:40→22:16)
[2024-12-23] MEDS: Rivaroxaban 20 MG TABLET PO (08:41)
[2024-12-23] MEDS: Insulin Lispro 100 UNIT/ML 3 ML VIAL SUBCUT ×4 (08:41→22:16)
[2024-12-23] MEDS: Insulin Glargine,Hum.rec.anlog 100 UNIT/ML 10 ML VIAL 36 UNIT SUBCUT (08:42)
[2024-12-23 11:41] LABS: Glucose, Whole Blood 300 mg/dL (60-115)
[2024-12-23 12:35] VITALS: BP 131/64; PULSE 66; TEMP 36.4; O2SAT 93; BMI 36.1
--- NOTE | 2024-12-23 13:22 | PC.NURSE ---
Room change from 507 bed 2 to 178 bed 1. Nurse to nurse done with M5 prior to admission to this unit. Arrived on unit at 1230 and placed on 5 min safety checks due to walker use while ambulating. Ambulates independently, gait steady. Conditional Voluntary legal status. See admission note dated 12/21/24 1600 for additional information. Confusion noted with transfer. Asking about lunch multiple times, despite receiving information re: lunch multiple times; questionable confusion due to unit change. Cooperative with skin check/waste/materials exchange specialist. Multiple scabbed areas noted BUE's and BLE's. Scabbed areas noted toes bilateral feet, Left 2nd toe amputation. Feet cracked/dry bilaterally. Vertical scar noted on back from report of past surgery. Skin assessment similar to assessment from M5 admission noted 12/21/24 at 1600. Rates depression and anxiety #7 on scale 1-10(10 worse). Reports mid back and lower back pain rating #7 on scale 1-10(10 worse). Denies SI/HI, denies AH/VH. Reports poor sleep last night due to bed being wet. Reports good appetite. Alert and oriented to person, place and time. Initially stated he was here because he was cuckoo. With encouragement to think stated, Because I fought with my son. Called son to inform him of room/unit change.
[2024-12-23 16:38] LABS: Glucose, Whole Blood 278 mg/dL (60-115)
[2024-12-23 20:00] VITALS: BP 135/66; PULSE 83; RESP 18; TEMP 37.1; O2SAT 93
--- NOTE | 2024-12-23 21:11 | P.PNPSI_ITS ---
Subjective Subjective Date of Service: 12/23/24 Reason For Visit: Agitation Subjective Notes: Conditional Voluntary Healthcare Proxy: No Guardianship: No Medical Problems Affecting Mental Status: No Interim History: Pt this a.m. remains with confusion and disorientation to time, day, situation. Aware he is in hospital. Reivewed in team. Annette Estrada OTR/L will do MOCA today. Team reports reasonable sleep ~7-8 hours, consistent. Last evening elevated BP 186/80- inbound call center representative ordered Amlodipine. POC's remain elevated. Pt's short term memory significantly impaired. Plan is a transfer to SI today for a more appropriate/supportive milieu for pt's needs. Diagnostics ordered for MCI/Dementia eval to begin. These have not been drawn as yet this a.m. Medication Compliance: Yes Side effects from medications: No Attending Groups: No Review of Systems Acute medical concerns: Yes HTN, Hyperglycemia, Deconditioning, Memory Impairment Review of Systems Review of Systems Pt tells team he believes he is choking. He does not demonstrate active sx. Swallow eval may be required. Mental Status Exam Mental Status Exam Patient Appearance: Fatigued and Disheveled Patient Orientation: Person and Place Level of Consciousness: Alert Patient Behavior: Talkative, Cooperative, Avoidant, Fatigued, Distractible, Confused and Good Eye Contact Mood Description: Constricted Affect Description: Constricted Patient Cognition Impaired: Yes Ability to Follow Directions: Fair Speech Pattern: Spontaneous Speech Memory Description: Remote Impaired, Immediate Impaired, Shelter Impaired, Episodic Impaired, Recent Impaired, Working Impaired and Semantic Impaired Hallucinations: None Delusions: Not Present Thought Process: Disoriented, Distracted, Slowed Thinking and Confusion Thought Content: positive for Circumstantial, positive for Tangential, positive for Evasive, positive for Suicidal Ideation (denies) and positive for Homicidal Ideation (denies) Depressive Symptoms: Insomnia, Difficulty Sleeping, Increased Fatigue, Thoughts of /Suicide (denies), Loss of Energy and Difficulty Concentrating Judgement: Poor Diagnostics Vital Signs (24Hr): Vital Signs - 24 hr 12/22/24 21:30 12/22/24 22:00 12/22/24 22:29 Temperature 97.6 F Pulse Rate 73 74 Respiratory Rate 14 Blood Pressure 188/80 H 186/80 H 188/80 H Pulse Oximetry 98 Oxygen Delivery Method Room Air 12/22/24 23:35 12/23/24 08:00 12/23/24 08:36 Temperature 97.8 F Pulse Rate 80 79 Respiratory Rate Blood Pressure 128/60 135/63 135/63 Pulse Oximetry 93 Oxygen Delivery Method Room Air 12/23/24 08:37 12/23/24 08:39 12/23/24 12:35 Temperature 97.6 F Pulse Rate 79 66 Respiratory Rate Blood Pressure 135/63 135/63 131/64 Pulse Oximetry 93 Oxygen Delivery Method Room Air BMI result Body Mass Index 36.1 Labs 12/21/24 13:44 Labs: Laboratory Results - last 48 hr 12/21/24 12/22/24 12/22/24 22:20 07:20 07:48 POC Glucose 372 H* 275 H Estimat Average Glucose 212 Hemoglobin A1c % 9.0 H Triglycerides 307 H Cholesterol 158 LDL Cholesterol, Calc 66 HDL Cholesterol 31 L 12/22/24 12/22/24 12/22/24 11:20 17:15 21:22 POC Glucose 323 H 401 H* 401 H* Estimat Average Glucose Hemoglobin A1c % Triglycerides Cholesterol LDL Cholesterol, Calc HDL Cholesterol 12/23/24 12/23/24 12/23/24 07:41 11:33 16:34 POC Glucose 240 H 300 H 278 H Estimat Average Glucose Hemoglobin A1c % Triglycerides Cholesterol LDL Cholesterol, Calc HDL Cholesterol Medications Medications Current Medications Acetaminophen (Acetaminophen 325 Mg Tablet) 650 mg PO Q6H PRN PRN Reason: Headache/Pain, Scale 1-10 Last Admin: 12/22/24 20:59 Dose: 650 mg Al Hydroxide/Mg Hydroxide (Magnesium Hydrox/Alum Hydrox 30 Ml Oral.Susp) 30 ml PO Q6H PRN PRN Reason: Heartburn/Nausea Buspirone HCl (Buspirone Hcl 5 Mg Tablet) 15 mg PO BID [facility] Last Admin: 12/23/24 08:40 Dose: 15 mg Clopidogrel Bisulfate (Clopidogrel Bisulfate 75 Mg Tablet) 75 mg PO DAILY [facility] Last Admin: 12/23/24 08:37 Dose: 75 mg Digoxin (Digoxin 0.125 Mg Tablet) 0.125 mg PO DAILY [facility]; Protocol Last Admin: 12/23/24 08:40 Dose: 0.125 mg Divalproex Sodium (Divalproex Sodium 250 Mg Tablet.) 250 mg PO BID [facility] Last Admin: 12/23/24 08:38 Dose: 250 mg Empagliflozin (Empagliflozin 25 Mg Tablet) 25 mg PO DAILY [facility] Last Admin: 12/23/24 08:40 Dose: 25 mg Fluoxetine HCl (Fluoxetine Hcl 20 Mg Capsule) 20 mg PO DAILY [facility] Hydroxyzine HCl (Hydroxyzine Hcl 25 Mg Tablet) 25 mg PO Q6H PRN PRN Reason: mild anxiety Last Admin: 12/22/24 20:59 Dose: 25 mg Insulin Glargine (Insulin Glargine,Hum.Rec.Anlog 100 Unit/Ml 10 Ml Vial) 36 unit SUBCUT DAILY [facility] Last Admin: 12/23/24 08:42 Dose: 36 unit Insulin Human Lispro (Insulin Lispro 100 Unit/Ml 3 Ml Vial) 0 unit SUBCUT QIDACHS [facility]; Protocol Last Admin: 12/23/24 16:45 Dose: 10 unit Lisinopril (Lisinopril 10 Mg Tablet) 10 mg PO DAILY [facility]; Protocol Last Admin: 12/23/24 08:36 Dose: 10 mg Magnesium Hydroxide (Milk Of Magnesia 30 Ml Oral.Susp) 30 ml PO DAILY PRN PRN Reason: Constipation Metformin HCl (Metformin Hcl 500 Mg Tablet) 500 mg PO BIDWM [facility] Last Admin: 12/23/24 16:45 Dose: 500 mg Metoprolol Succinate (Metoprolol Succinate Er 100 Mg Tab.Er.24h) 100 mg PO DAILY [facility]; Protocol Last Admin: 12/23/24 08:39 Dose: 100 mg Nicotine (Nicotine 14 Mg Patch.Td24) 14 mg TRANSDERMA DAILY [facility] Last Admin: 12/23/24 09:35 Dose: Not Given Nicotine Polacrilex (Nicotine Polacrilex 2 Mg Gum) 4 mg BUCCAL Q2H PRN PRN Reason: Nicotine Cravings Olanzapine (Olanzapine 5 Mg Tablet) 5 mg PO TID PRN PRN Reason: agitation Pantoprazole Sodium (Pantoprazole Sodium 20 Mg Tablet.Dr) 40 mg PO DAILY@0630 [facility] Last Admin: 12/23/24 07:06 Dose: 40 mg Pregabalin (Pregabalin 200 Mg Capsule) 200 mg PO TID [facility] Last Admin: 12/23/24 14:54 Dose: 200 mg Rivaroxaban (Rivaroxaban 20 Mg Tablet) 20 mg PO DAILY [facility] Last Admin: 12/23/24 08:41 Dose: 20 mg Tiotropium [place] (Tiotropium [place] 2.5 Mcg 1 Puff/2.5 Mcg Mist.Inhal) 2 puff INHALE RDAILY [facility] Last Admin: 12/23/24 08:36 Dose: 2 puff Torsemide (Torsemide 20 Mg Tablet) 20 mg PO DAILY [facility]; Protocol Last Admin: 12/23/24 08:37 Dose: 20 mg Trazodone HCl (Trazodone Hcl 50 Mg Tablet) 50 mg PO BEDTIME MRX1 PRN PRN Reason: Insomnia Trazodone HCl (Trazodone Hcl 50 Mg Tablet) 50 mg PO BEDTIME [facility] Last Admin: 12/22/24 20:59 Dose: 50 mg Allergies Allergies Allergy/AdvReac Type Severity Reaction Status Date / Time No Known Allergies Allergy Verified 12/18/24 22:23 Assessment & Plan Assessment & Plan (1) Toxic metabolic encephalopathy: Status: Acute Code(s): G92.8 - Other toxic encephalopathy (2) Mood disorder: Status: Acute Code(s): F39 - Unspecified mood [affective] disorder (3) Opiate abuse, episodic: Status: Acute Code(s): F11.10 - Opioid abuse, uncomplicated Plan Admit, CV, 15 minute checks Discussed with team post eval. Will transfer to S1 for appropriate milieu treatment and integration. Diagnostic eval initiated, Rule out MCI/Dementia. Pt will need time for toxic metabolice encephaolopathy to resolve. 12/23/24 Diagnostics Transfer to S1 when there is availability Reason for continued inpatient stay Substantial Risk for: med/psych decompensation Time Spent With Patient Time: Total time managing care of this patient today ____ minutes.
[2024-12-23 22:12] LABS: Glucose, Whole Blood 213 mg/dL (60-115)
[2024-12-23] MEDS: traZODone HCL 50 MG TABLET PO (22:15)
[2024-12-23] MEDS: hydrOXYzine HCL 25 MG TABLET PO (22:15)
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
[2024-12-24 06:22] LABS: Glucose, Whole Blood 267 mg/dL (60-115)
[2024-12-24] MEDS: Pantoprazole Sodium 20 MG TABLET.DR 40 MG PO (06:34)
[2024-12-24 08:40] VITALS: BP 127/84; PULSE 86; RESP 18; TEMP 36.5; O2SAT 94
[2024-12-24] MEDS: Insulin Lispro 100 UNIT/ML 3 ML VIAL SUBCUT ×4 (09:22→21:39)
[2024-12-24] MEDS: Insulin Glargine,Hum.rec.anlog 100 UNIT/ML 10 ML VIAL 36 UNIT SUBCUT (09:25)
[2024-12-24] MEDS: lisinopriL 10 MG TABLET PO (09:25)
[2024-12-24] MEDS: Divalproex Sodium 250 MG TABLET.DR PO ×2 (09:26→21:40)
[2024-12-24] MEDS: Pregabalin 200 MG CAPSULE PO ×3 (09:26→21:40)
[2024-12-24] MEDS: Tiotropium Bromide 2.5 mcg 1 PUFF/2.5 MCG MIST.INHAL 2 PUFF INHALE (09:26)
[2024-12-24] MEDS: busPIRone HCl 5 MG TABLET 15 MG PO ×2 (09:26→21:40)
[2024-12-24] MEDS: Digoxin 0.125 MG TABLET PO (09:27)
[2024-12-24] MEDS: Metoprolol Succinate ER 100 MG TAB.ER.24H PO (09:27)
[2024-12-24] MEDS: Torsemide 20 MG TABLET PO (09:27)
[2024-12-24] MEDS: metFORMIN HCl 500 MG TABLET PO ×2 (09:27→16:49)
[2024-12-24] MEDS: Rivaroxaban 20 MG TABLET PO (09:28)
[2024-12-24] MEDS: Clopidogrel Bisulfate 75 MG TABLET PO (09:28)
[2024-12-24] MEDS: FLUoxetine HCl 20 MG CAPSULE PO (09:28)
[2024-12-24] MEDS: Empagliflozin 25 MG TABLET PO (09:28)
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
[2024-12-24 11:43] LABS: Glucose, Whole Blood 258 mg/dL (60-115)
[2024-12-24 16:48] LABS: Glucose, Whole Blood 247 mg/dL (60-115)
[2024-12-24 20:00] VITALS: BP 100/52; PULSE 80; RESP 16; TEMP 36.3; O2SAT 96
[2024-12-24 20:25] LABS: Glucose, Whole Blood 329 mg/dL (60-115)
[2024-12-24] MEDS: traZODone HCL 50 MG TABLET PO (21:40)
[2024-12-25] MEDS: Pantoprazole Sodium 20 MG TABLET.DR 40 MG PO (05:37)
[2024-12-25 06:43] LABS: Glucose, Whole Blood 357 mg/dL (60-115)
[2024-12-25 07:00] VITALS: BMI 35.9
[2024-12-25 08:00] VITALS: BP 141/65; PULSE 61; RESP 20; TEMP 36.4; O2SAT 96
[2024-12-25] MEDS: busPIRone HCl 5 MG TABLET 15 MG PO ×2 (08:53→20:46)
[2024-12-25] MEDS: lisinopriL 10 MG TABLET PO (08:54)
[2024-12-25] MEDS: FLUoxetine HCl 20 MG CAPSULE PO (08:54)
[2024-12-25] MEDS: metFORMIN HCl 500 MG TABLET PO ×2 (08:54→16:10)
[2024-12-25] MEDS: Rivaroxaban 20 MG TABLET PO (08:54)
[2024-12-25] MEDS: Divalproex Sodium 250 MG TABLET.DR PO (08:54)
[2024-12-25] MEDS: Metoprolol Succinate ER 100 MG TAB.ER.24H PO (08:54)
[2024-12-25] MEDS: Clopidogrel Bisulfate 75 MG TABLET PO (08:54)
[2024-12-25] MEDS: Empagliflozin 25 MG TABLET PO (08:54)
[2024-12-25] MEDS: Torsemide 20 MG TABLET PO (08:54)
[2024-12-25] MEDS: Pregabalin 200 MG CAPSULE PO (08:54)
[2024-12-25] MEDS: Digoxin 0.125 MG TABLET PO (08:54)
[2024-12-25] MEDS: Tiotropium Bromide 2.5 mcg 1 PUFF/2.5 MCG MIST.INHAL 2 PUFF INHALE (08:55)
[2024-12-25] MEDS: Insulin Lispro 100 UNIT/ML 3 ML VIAL SUBCUT ×4 (08:56→20:46)
[2024-12-25] MEDS: Insulin Glargine,Hum.rec.anlog 100 UNIT/ML 10 ML VIAL 36 UNIT SUBCUT (08:56)
[2024-12-25 11:27] LABS: Glucose, Whole Blood 281 mg/dL (60-115)
[2024-12-25 13:48] LABS: Ammonia 23 umol/L (13-55)
[2024-12-25] MEDS: Pregabalin 100 MG CAPSULE PO ×2 (16:10→20:46)
[2024-12-25 16:48] LABS: Glucose, Whole Blood 231 mg/dL (60-115)
[2024-12-25 20:00] VITALS: BP 127/60; PULSE 64; RESP 17; TEMP 36.1; O2SAT 97
[2024-12-25 20:14] LABS: Glucose, Whole Blood 247 mg/dL (60-115)
[2024-12-25] MEDS: traZODone HCL 50 MG TABLET PO (20:46)
[2024-12-25] MEDS: Divalproex Sodium 500 MG TABLET.DR PO (20:46)
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
[2024-12-26] MEDS: Pantoprazole Sodium 20 MG TABLET.DR 40 MG PO (06:28)
[2024-12-26 06:36] LABS: Glucose, Whole Blood 211 mg/dL (60-115)
[2024-12-26 08:00] VITALS: BP 119/68; PULSE 77; RESP 18; TEMP 36.3; O2SAT 96
[2024-12-26 08:35] LABS: Folate 6.5 ng/mL (> or = 4.0); Vitamin B12 338 pg/mL (200-900)
[2024-12-26] MEDS: busPIRone HCl 5 MG TABLET 15 MG PO ×2 (09:25→20:25)
[2024-12-26] MEDS: Digoxin 0.125 MG TABLET PO (09:25)
[2024-12-26 09:26] VITALS: BP 119/68
[2024-12-26] MEDS: Clopidogrel Bisulfate 75 MG TABLET PO (09:26)
[2024-12-26] MEDS: FLUoxetine HCl 20 MG CAPSULE PO (09:26)
[2024-12-26] MEDS: lisinopriL 10 MG TABLET PO (09:26)
[2024-12-26] MEDS: metFORMIN HCl 500 MG TABLET PO ×2 (09:26→16:33)
[2024-12-26] MEDS: Divalproex Sodium 250 MG TABLET.DR PO (09:26)
[2024-12-26] MEDS: Torsemide 20 MG TABLET PO (09:26)
[2024-12-26 09:27] VITALS: BP 119/68; PULSE 77
[2024-12-26] MEDS: Pregabalin 100 MG CAPSULE PO ×3 (09:27→20:25)
[2024-12-26] MEDS: Rivaroxaban 20 MG TABLET PO (09:27)
[2024-12-26] MEDS: Empagliflozin 25 MG TABLET PO (09:27)
[2024-12-26] MEDS: Metoprolol Succinate ER 100 MG TAB.ER.24H PO (09:27)
[2024-12-26] MEDS: Tiotropium Bromide 2.5 mcg 1 PUFF/2.5 MCG MIST.INHAL 2 PUFF INHALE (09:28)
[2024-12-26] MEDS: Insulin Lispro 100 UNIT/ML 3 ML VIAL SUBCUT ×4 (09:29→20:23)
[2024-12-26] MEDS: Insulin Glargine,Hum.rec.anlog 100 UNIT/ML 10 ML VIAL 36 UNIT SUBCUT (09:34)
--- NOTE | 2024-12-26 10:06 | P.PNPSI_ITS ---
Subjective Subjective Date of Service: 12/26/24 Reason For Visit: Agitation confusion Subjective Notes: Conditional Voluntary and 3 Day Interim History: Patient seen psychiatric follow-up patient [place] noted to be decreased Roberto also impaired. Patient has very limited insight into what is happened to him and why or if he had not been taking his medication. The patient irritable information was obtained from his son who did state the patient had been depressed he had made intermittent thoughts reportedly of self-harm but stated that he did not feel the patient met them. Patient reportedly had refused recommendation of VNA today discussed with social work need to make a referral to Elder Services at risk I reviewed case with patient's PCP who stated he had also at concerns regarding the patient's cognitive issues and memory Mental Status Exam Mental Status Exam Patient Appearance: Fatigued Patient Orientation: Person, Place and Situation Level of Consciousness: Alert Patient Behavior: Talkative, Cooperative, Distractible and Good Eye Contact Mood Description: Constricted and Depressed Affect Description: Constricted Patient Cognition Impaired: Yes Ability to Follow Directions: Fair Speech Pattern: Spontaneous Speech Memory Description: Immediate Impaired, Episodic Impaired, Recent Impaired and Working Impaired Hallucinations: None Delusions: Not Present Thought Process: Disoriented, Distracted, Slowed Thinking and Confusion Thought Content: positive for Circumstantial, positive for Tangential, positive for Evasive, negative for Suicidal Ideation (denies) or negative for Homicidal Ideation (denies) Depressive Symptoms: Insomnia, Difficulty Sleeping, Increased Fatigue, Loss of Energy and Difficulty Concentrating Judgement: Poor Judgement and Insight: Patient continues to be perplexed has difficulty understanding the extent of his difficulties medical complications and implications Diagnostics Vital Signs (24Hr): Vital Signs - 24 hr 12/25/24 20:00 12/26/24 09:26 12/26/24 09:26 Temperature 97 F Pulse Rate 64 Respiratory Rate 17 Blood Pressure 127/60 119/68 119/68 Pulse Oximetry 97 Oxygen Delivery Method Room Air 12/26/24 09:27 Temperature Pulse Rate 77 Respiratory Rate Blood Pressure 119/68 Pulse Oximetry Oxygen Delivery Method BMI result Body Mass Index 35.9 Labs 12/26/24 10:26 12/27/24 09:54 Labs: Laboratory Results - last 48 hr 12/24/24 12/24/24 12/24/24 11:39 16:45 20:19 POC Glucose 258 H 247 H 329 H Ammonia Vitamin B12 Folate 12/25/24 12/25/24 12/25/24 06:37 11:21 13:25 POC Glucose 357 H* 281 H Ammonia 23 Vitamin B12 Folate 12/25/24 12/25/24 12/26/24 16:43 20:09 06:28 POC Glucose 231 H 247 H 211 H Ammonia Vitamin B12 Folate 12/26/24 07:24 POC Glucose Ammonia Vitamin B12 338 Folate 6.5 Medications Medications Current Medications Acetaminophen (Acetaminophen 325 Mg Tablet) 650 mg PO Q6H PRN PRN Reason: Headache/Pain, Scale 1-10 Last Admin: 12/22/24 20:59 Dose: 650 mg Al Hydroxide/Mg Hydroxide (Magnesium Hydrox/Alum Hydrox 30 Ml Oral.Susp) 30 ml PO Q6H PRN PRN Reason: Heartburn/Nausea Buspirone HCl (Buspirone Hcl 5 Mg Tablet) 15 mg PO BID [facility] Last Admin: 12/26/24 09:25 Dose: 15 mg Clopidogrel Bisulfate (Clopidogrel Bisulfate 75 Mg Tablet) 75 mg PO DAILY [facility] Last Admin: 12/26/24 09:26 Dose: 75 mg Digoxin (Digoxin 0.125 Mg Tablet) 0.125 mg PO DAILY [facility]; Protocol Last Admin: 12/26/24 09:25 Dose: 0.125 mg Divalproex Sodium (Divalproex Sodium 500 Mg Tablet.) 500 mg PO BEDTIME [facility] Last Admin: 12/25/24 20:46 Dose: 500 mg Divalproex Sodium (Divalproex Sodium 250 Mg Tablet.) 250 mg PO DAILY [facility] Last Admin: 12/26/24 09:26 Dose: 250 mg Empagliflozin (Empagliflozin 25 Mg Tablet) 25 mg PO DAILY [facility] Last Admin: 12/26/24 09:27 Dose: 25 mg Fluoxetine HCl (Fluoxetine Hcl 20 Mg Capsule) 20 mg PO DAILY [facility] Last Admin: 12/26/24 09:26 Dose: 20 mg Hydroxyzine HCl (Hydroxyzine Hcl 25 Mg Tablet) 25 mg PO Q6H PRN PRN Reason: mild anxiety Last Admin: 12/23/24 22:15 Dose: 25 mg Insulin Glargine (Insulin Glargine,Hum.Rec.Anlog 100 Unit/Ml 10 Ml Vial) 36 unit SUBCUT DAILY [facility] Last Admin: 12/26/24 09:34 Dose: 36 unit Insulin Human Lispro (Insulin Lispro 100 Unit/Ml 3 Ml Vial) 0 unit SUBCUT QIDACHS [facility]; Protocol Last Admin: 12/26/24 09:29 Dose: 7 unit Lisinopril (Lisinopril 10 Mg Tablet) 10 mg PO DAILY [facility]; Protocol Last Admin: 12/26/24 09:26 Dose: 10 mg Magnesium Hydroxide (Milk Of Magnesia 30 Ml Oral.Susp) 30 ml PO DAILY PRN PRN Reason: Constipation Metformin HCl (Metformin Hcl 500 Mg Tablet) 500 mg PO BIDWM [facility] Last Admin: 12/26/24 09:26 Dose: 500 mg Metoprolol Succinate (Metoprolol Succinate Er 100 Mg Tab.Er.24h) 100 mg PO DAILY [facility]; Protocol Last Admin: 12/26/24 09:27 Dose: 100 mg Nicotine (Nicotine 14 Mg Patch.Td24) 14 mg TRANSDERMA DAILY [facility] Last Admin: 12/26/24 09:35 Dose: Not Given Nicotine Polacrilex (Nicotine Polacrilex 2 Mg Gum) 4 mg BUCCAL Q2H PRN PRN Reason: Nicotine Cravings Olanzapine (Olanzapine 5 Mg Tablet) 5 mg PO TID PRN PRN Reason: agitation Pantoprazole Sodium (Pantoprazole Sodium 20 Mg Tablet.Dr) 40 mg PO DAILY@0630 [facility] Last Admin: 12/26/24 06:28 Dose: 40 mg Pregabalin (Pregabalin 100 Mg Capsule) 100 mg PO TID [facility] Last Admin: 12/26/24 09:27 Dose: 100 mg Rivaroxaban (Rivaroxaban 20 Mg Tablet) 20 mg PO DAILY [facility] Last Admin: 12/26/24 09:27 Dose: 20 mg Tiotropium [place] (Tiotropium [place] 2.5 Mcg 1 Puff/2.5 Mcg Mist.Inhal) 2 puff INHALE RDAILY [facility] Last Admin: 12/26/24 09:28 Dose: 2 puff Torsemide (Torsemide 20 Mg Tablet) 20 mg PO DAILY [facility]; Protocol Last Admin: 12/26/24 09:26 Dose: 20 mg Trazodone HCl (Trazodone Hcl 50 Mg Tablet) 50 mg PO BEDTIME MRX1 PRN PRN Reason: Insomnia Trazodone HCl (Trazodone Hcl 50 Mg Tablet) 50 mg PO BEDTIME [facility] Last Admin: 12/25/24 20:46 Dose: 50 mg Allergies Allergies Allergy/AdvReac Type Severity Reaction Status Date / Time No Known Allergies Allergy Verified 12/18/24 22:23 Assessment & Plan Assessment & Plan (1) Toxic metabolic encephalopathy: Status: Acute Code(s): G92.8 - Other toxic encephalopathy (2) Mood disorder: Status: Acute Code(s): F39 - Unspecified mood [affective] disorder (3) Opiate abuse, episodic: Status: Acute Code(s): F11.10 - Opioid abuse, uncomplicated Plan Patient on 5 minute checks he does have walker trying to get a better sense of his baseline patient educated regarding being on psych psychiatric unit he states he has not been admitted previously for psychiatric issues he states. Has been on Depakote and fluoxetine was not clear on why he had been prescribed this and for how long. Patient was having difficulty with executive function and both short and long-term memory at this time. Who was somewhat dismissive regarding the long-term consequences of elevated blood sugars. Continue Lyrica fluoxetine lowered to 20 mg continue Depakote check level check ammonia continue Jardiance metformin insulin try and achieve better control vascular cognitive changes might be part of the picture given his diabetes and vascular disease as evidenced by recent amputation Social work for family history coordination of care discharge planning. Will try and get additional information from primary care physician apparently elder at risk Services has been involved try and clarify diagnosis and adjust medication management 12/24/2024 Patient's mood flat dysphoric fluoxetine lowered to 20 mg because of patient's questionable history of bipolar disorder Prozac may worsen cycling and agitation irritability although unclear if patient had been taki ng his medication regularly. Reportedly patient's son states he has not been taking multiple attempts have been made to reach the patient's son . Patient has difficulty taking in information weighing at processing it Brain MRI was unremarkable 12/25/2024 Patient denies most symptoms is somewhat irritable dysphoric vague talking about discharge but seems to have no plan to prevent what happened from happening again or eating what exactly happened. Reportedly had been depressed and not taking meds for weeks. Will increase Depakote to 750 mg daily to have better control of reported manic states lower Lyrica 200 mg 3 times a day check ammonia level Strongly benefit from collateral information social Work reportedly has been trying to reach patient's son that he lives with ck b12 folate 12/26/2024 Patient with decreased [place] case reviewed with patient's PCP who also recommended VNA patient reportedly refusing VNA. Discussed with social work need for [place] at risk referral to Elder Services. Patient denies SI mood flat dysphoric perplexed at times limited comprehension regarded his medical difficulties Prozac was lowered to 20 mg Depakote 250 in the morning 500 at bedtime might benefit from Aricept or Exelon patient has a history of atrial fibrillation will leave to primary care. He was also [facility] to [facility] patient would benefit from case management seems to have a hard time understanding how to get to different appointments he is on a 3 day notice no active SI or HI but significant limitations and understanding Reason for continued inpatient stay Substantial Risk for: inability to function, rapid decompensation and med/psych decompensation Time Spent With Patient Time: Total time managing care of this patient today ____ minutes.
[2024-12-26 10:31] LABS: MANUAL DIFF FLAG NO
[2024-12-26 10:37] LABS: Basophils Absolute Auto 0.1 X10*3/uL (0.0-0.2); Basophils Percent Auto 0.8 % (0-2); Eosinophils Absolute Auto 0.3 X10*3/uL (0.0-0.4); Eosinophils Percent Auto 2.6 % (0-4); Hematocrit 38.3 % (42.0-52.0); Imm Gran Abs Auto 0.19 X10*3/uL (0.00-0.03); Imm Gran Pct Auto 1.9 % (0.0-0.4); Lymphocytes Absolute Auto 1.6 X10*3/uL (1.2-4.9); Mean Corpuscular HGB Conc 31.3 g/dl (31.0-36.0); Mean Corpuscular Hemoglobin 26.4 pg (27.0-33.0); Mean Corpuscular Volume 84.4 fL (80.0-98.0); Mean Platelet Volume 10.5 fL (9.4-12.4); Monocytes Percent Auto 9.9 % (2-11); Neutrophils Percent Auto 68.8 % (45-73); Platelet Count 287 X10*3/uL (160-400); Red Blood Count 4.54 X10*6/uL (4.60-5.80); Red Cell Distribution Width 17.4 % (11.0-16.0); White Blood Count 10.1 X10*3/uL (4.8-10.8)
[2024-12-26 11:17] LABS: Alanine Aminotransferase 11 U/L (0-40); Albumin Level 3.5 g/dL (3.5-5.0); Alkaline Phosphatase 74 U/L (39-117); Anion Gap 13 (12-20); Aspartate Amino Transferase 13 U/L (5-37); Bilirubin Total 0.5 mg/dL (0.0-1.0); Blood Urea Nitrogen 34 mg/dL (9-16); Calcium 9.4 mg/dL (8.4-10.2); Carbon Dioxide 29 mmol/L (22-29); Chloride 97 mmol/L (96-108); Creatinine Clr Calc Pharmacy 60.1; Estimated Glomerular Filt Rate 52; Glucose Random 376 mg/dL (60-115); Iron 49 mcg/dL (45-160); Percent Iron Saturation 18 % (15-50); Potassium 4.9 mmol/L (3.3-5.1); Sodium 134 mmol/L (135-145); Total Iron Binding Capacity 273 mcg/dL (228-428); Total Protein 6.7 g/dL (6.5-8.0); Unsaturated Iron Binding 224 ug/dL
[2024-12-26 11:34] LABS: Glucose, Whole Blood 287 mg/dL (60-115)
--- NOTE | 2024-12-26 12:31 | PC.NURSE ---
New orders for critical labs/glucose of 376. No acute diabetic signs noted. Will continue to monitor.
[2024-12-26] MEDS: Insulin Glargine,Hum.rec.anlog 100 UNIT/ML 10 ML VIAL SUBCUT (13:08)
[2024-12-26 16:22] LABS: Glucose, Whole Blood 156 mg/dL (60-115)
[2024-12-26] MEDS: Acetaminophen 325 MG TABLET 650 MG PO (16:30)
[2024-12-26 20:00] VITALS: BP 130/64; PULSE 73; RESP 16; TEMP 36.1; O2SAT 95
[2024-12-26 20:13] LABS: Glucose, Whole Blood 167 mg/dL (60-115)
[2024-12-26] MEDS: Divalproex Sodium 500 MG TABLET.DR PO (20:25)
[2024-12-26] MEDS: traZODone HCL 50 MG TABLET PO (20:25)
[2024-12-27] MEDS: Acetaminophen 325 MG TABLET 650 MG PO (01:02)
[2024-12-27] MEDS: Pantoprazole Sodium 20 MG TABLET.DR 40 MG PO (06:40)
[2024-12-27 06:48] LABS: Glucose, Whole Blood 279 mg/dL (60-115)
[2024-12-27 07:52] LABS: Estimated Average Glucose 209 mg/dL; Hemoglobin A1C 210.2561 umol/L; Hemoglobin A1c % 8.9 % (<6.0); Total Hemoglobin (HGBA1C) 2868.7908 umol/L
--- NOTE | 2024-12-27 08:00 | ECG_ITS ---
Test Reason : afib Blood Pressure : */* mmHG Vent. Rate : 61 BPM Atrial Rate : * BPM P-R Int : * ms QRS Dur : 128 ms QT Int : 438 ms P-R-T Axes : * 93 33 degrees QTcB Int : 440 ms Atrial fibrillation Right bundle branch block Abnormal ECG When compared with ECG of 18-Dec-2024 22:31, Vent. rate has decreased by 50 bpm T wave inversion no longer evident in Anterior leads Referred By: Neel Bauer Electronically Signed By: Winston Patton
[2024-12-27 08:43] VITALS: BP 141/67; PULSE 57; RESP 16; TEMP 36.1; O2SAT 96
[2024-12-27] MEDS: Tiotropium Bromide 2.5 mcg 1 PUFF/2.5 MCG MIST.INHAL 2 PUFF INHALE (08:47)
[2024-12-27] MEDS: lisinopriL 10 MG TABLET PO (08:48)
[2024-12-27] MEDS: Digoxin 0.125 MG TABLET PO (08:48)
[2024-12-27] MEDS: Pregabalin 150 MG CAPSULE PO ×3 (08:48→21:07)
[2024-12-27] MEDS: FLUoxetine HCl 20 MG CAPSULE PO (08:48)
[2024-12-27] MEDS: Torsemide 20 MG TABLET PO (08:48)
[2024-12-27] MEDS: Clopidogrel Bisulfate 75 MG TABLET PO (08:48)
[2024-12-27] MEDS: Rivaroxaban 20 MG TABLET PO (08:48)
[2024-12-27] MEDS: Divalproex Sodium 250 MG TABLET.DR PO (08:48)
[2024-12-27] MEDS: busPIRone HCl 5 MG TABLET 15 MG PO ×2 (08:48→21:07)
[2024-12-27] MEDS: metFORMIN HCl 500 MG TABLET PO ×2 (08:48→16:51)
[2024-12-27] MEDS: Empagliflozin 25 MG TABLET PO (08:49)
[2024-12-27] MEDS: Metoprolol Succinate ER 100 MG TAB.ER.24H PO (08:49)
[2024-12-27] MEDS: Insulin Glargine,Hum.rec.anlog 100 UNIT/ML 10 ML VIAL 40 UNIT SUBCUT (08:49)
[2024-12-27] MEDS: Insulin Lispro 100 UNIT/ML 3 ML VIAL SUBCUT ×4 (08:50→21:27)
[2024-12-27 10:33] LABS: Anion Gap 13 (12-20); Blood Urea Nitrogen 34 mg/dL (9-16); Calcium 8.9 mg/dL (8.4-10.2); Carbon Dioxide 28 mmol/L (22-29); Chloride 98 mmol/L (96-108); Creatinine Clr Calc Pharmacy 48.4; Estimated Glomerular Filt Rate 40; Glucose Random 289 mg/dL (60-115); Potassium 4.4 mmol/L (3.3-5.1); Sodium 135 mmol/L (135-145)
[2024-12-27 11:37] LABS: Glucose, Whole Blood 189 mg/dL (60-115)
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
[2024-12-27 16:25] LABS: Glucose, Whole Blood 270 mg/dL (60-115)
[2024-12-27 20:00] VITALS: BP 103/62; PULSE 64; RESP 16; TEMP 37; O2SAT 98
[2024-12-27] MEDS: Divalproex Sodium 500 MG TABLET.DR PO (21:07)
[2024-12-27] MEDS: traZODone HCL 50 MG TABLET PO (21:07)
[2024-12-27 21:26] LABS: Glucose, Whole Blood 250 mg/dL (60-115)
--- NOTE | 2024-12-28 | ECG_ITS ---
Test Reason : CHECK QT Blood Pressure : */* mmHG Vent. Rate : 57 BPM Atrial Rate : * BPM P-R Int : * ms QRS Dur : 142 ms QT Int : 438 ms P-R-T Axes : * -41 38 degrees QTcB Int : 426 ms Atrial fibrillation with slow ventricular response Left axis deviation Right bundle branch block Abnormal ECG When compared with ECG of 26-Dec-2024 18:33, QRS axis Shifted left Referred By: Renetta Allison Electronically Signed By: NANCY VILLA MD
[2024-12-28] MEDS: Pantoprazole Sodium 20 MG TABLET.DR 40 MG PO (06:23)
[2024-12-28 06:49] LABS: Glucose, Whole Blood 265 mg/dL (60-115)
[2024-12-28 08:24] LABS: Creatinine Clr Calc Pharmacy 51.1; Estimated Glomerular Filt Rate 43
[2024-12-28 08:26] VITALS: BP 166/73; PULSE 67; RESP 16; TEMP 36.2; O2SAT 99
[2024-12-28] MEDS: Insulin Glargine,Hum.rec.anlog 100 UNIT/ML 10 ML VIAL 40 UNIT SUBCUT (08:27)
[2024-12-28] MEDS: Tiotropium Bromide 2.5 mcg 1 PUFF/2.5 MCG MIST.INHAL 2 PUFF INHALE (08:27)
[2024-12-28] MEDS: Insulin Lispro 100 UNIT/ML 3 ML VIAL SUBCUT ×4 (08:28→21:14)
[2024-12-28] MEDS: metFORMIN HCl 500 MG TABLET PO ×2 (08:28→16:41)
[2024-12-28] MEDS: Clopidogrel Bisulfate 75 MG TABLET PO (08:28)
[2024-12-28] MEDS: busPIRone HCl 5 MG TABLET 15 MG PO ×2 (08:28→21:16)
[2024-12-28] MEDS: Divalproex Sodium 250 MG TABLET.DR PO (08:29)
[2024-12-28] MEDS: Empagliflozin 25 MG TABLET PO (08:29)
[2024-12-28] MEDS: FLUoxetine HCl 20 MG CAPSULE PO (08:29)
[2024-12-28] MEDS: Rivaroxaban 20 MG TABLET PO (08:29)
[2024-12-28] MEDS: Digoxin 0.125 MG TABLET PO (08:29)
[2024-12-28] MEDS: Metoprolol Succinate ER 100 MG TAB.ER.24H PO (08:29)
[2024-12-28] MEDS: Pregabalin 150 MG CAPSULE PO ×3 (08:29→21:16)
[2024-12-28] MEDS: Torsemide 20 MG TABLET PO (08:29)
[2024-12-28] MEDS: lisinopriL 10 MG TABLET PO (08:29)
[2024-12-28 11:34] LABS: Glucose, Whole Blood 250 mg/dL (60-115)
[2024-12-28 16:35] LABS: Glucose, Whole Blood 250 mg/dL (60-115)
[2024-12-28 20:00] VITALS: BP 135/63; PULSE 68; RESP 16; TEMP 35.9; O2SAT 97
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
[2024-12-28 20:28] LABS: Glucose, Whole Blood 249 mg/dL (60-115)
[2024-12-28] MEDS: Acetaminophen 325 MG TABLET 650 MG PO (21:15)
[2024-12-28] MEDS: Divalproex Sodium 500 MG TABLET.DR PO (21:16)
[2024-12-28] MEDS: traZODone HCL 50 MG TABLET PO (21:17)
[2024-12-29] MEDS: Pantoprazole Sodium 20 MG TABLET.DR 40 MG PO (06:31)
[2024-12-29 06:46] LABS: Glucose, Whole Blood 231 mg/dL (60-115)
[2024-12-29 07:53] LABS: Syphilis Screen Nonreactive (Nonreactive)
[2024-12-29 08:00] VITALS: BP 140/69; PULSE 69; TEMP 36.1; O2SAT 95
[2024-12-29] MEDS: busPIRone HCl 5 MG TABLET 15 MG PO (08:44)
[2024-12-29 08:45] VITALS: BP 140/69; PULSE 69
[2024-12-29] MEDS: Empagliflozin 25 MG TABLET PO (08:45)
[2024-12-29] MEDS: Metoprolol Succinate ER 100 MG TAB.ER.24H PO (08:45)
[2024-12-29] MEDS: metFORMIN HCl 500 MG TABLET PO (08:46)
[2024-12-29] MEDS: Digoxin 0.125 MG TABLET PO (08:46)
[2024-12-29] MEDS: Pregabalin 150 MG CAPSULE PO (08:46)
[2024-12-29] MEDS: Clopidogrel Bisulfate 75 MG TABLET PO (08:47)
[2024-12-29] MEDS: FLUoxetine HCl 20 MG CAPSULE PO (08:47)
[2024-12-29] MEDS: Rivaroxaban 20 MG TABLET PO (08:47)
[2024-12-29 08:48] VITALS: BP 140/69
[2024-12-29] MEDS: lisinopriL 10 MG TABLET PO (08:48)
[2024-12-29] MEDS: Divalproex Sodium 250 MG TABLET.DR PO (08:48)
[2024-12-29] MEDS: Tiotropium Bromide 2.5 mcg 1 PUFF/2.5 MCG MIST.INHAL 2 PUFF INHALE (08:50)
[2024-12-29] MEDS: Insulin Glargine,Hum.rec.anlog 100 UNIT/ML 10 ML VIAL 40 UNIT SUBCUT ×2 (08:50→09:37)
[2024-12-29] MEDS: Insulin Lispro 100 UNIT/ML 3 ML VIAL SUBCUT ×2 (09:36→11:32)
[2024-12-29 10:06] VITALS: BP 140/69
[2024-12-29] MEDS: Torsemide 20 MG TABLET PO (10:06)
--- NOTE | 2024-12-29 12:24 | P.DS_ITS ---
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 discharge please reach out to them via the number listed.) Rafiq Mcallister, SAMI [Nurse Practitioner] - 01/01/25 1:40 pm (You will see Dr. Kendell Mari for your aftercare appointment this time. Your usual DrStan was unavailable but this will just be for an aftercare appointment not continuous care. Please be aware that the clinic will call you and joe to confirm the appointment and they ask that you be available by phone for this.) Discharge Medications: New fluoxetine 20 mg Capsule 20 mg PO DAILY 30 Days Qty: 30 0RF pregabalin 150 mg Capsule 150 mg PO TID 30 Days Qty: 90 0RF Continued insulin lispro [Humalog KwikPen Insulin] 100 unit/mL insulin pen 2 - 12 unit subcut TID metformin 500 mg tablet 500 mg PO BID 30 Days Qty: 60 0RF nicotine 14 mg/24 hr Patch 24 Hour 14 mg transdermal DAILY 15 Days Qty: 15 0RF torsemide 20 mg tablet 20 mg PO DAILY 30 Days Qty: 30 0RF trazodone 50 mg tablet 50 mg PO BEDTIME 30 Days Qty: 30 0RF metoprolol succinate 100 mg tablet extended release 24 hr 100 mg PO DAILY 30 Days Qty: 30 0RF clopidogrel 75 mg tablet 75 mg PO DAILY 30 Days Qty: 30 0RF omeprazole 40 mg capsule,delayed release(DR/EC) 40 mg PO DAILY@0630 30 Days Qty: 30 0RF lisinopril 10 mg tablet 10 mg PO DAILY 30 Days Qty: 30 0RF digoxin 125 mcg (0.125 mg) tablet 125 mcg PO DAILY 30 Days Qty: 30 0RF buspirone 15 mg tablet 15 mg PO BID 30 Days Qty: 60 0RF Xarelto 20 mg tablet 20 mg PO DAILY 30 Days Qty: 30 0RF Incruse Ellipta 62.5 mcg/actuation blister with device 1 inh inhalation DAILY 30 Days Qty: 1 0RF Jardiance 25 mg tablet 25 mg PO DAILY 30 Days Qty: 30 0RF Changed divalproex 250 mg tablet,delayed release (DR/EC) 250 mg PO DIRECTED 30 Days Qty: 90 1RF Rx Instructions: 1 tab in the am 2 tabs at bedtime insulin glargine-yfgn 100 unit/mL (3 mL) insulin pen 40 unit subcut DAILY 30 Days Qty: 1 0RF Discontinued fluoxetine 40 mg capsule 40 mg PO DAILY pregabalin 200 mg capsule 200 mg PO TID Discharge Orders: Discharge Order (Routine); Ordered 12/29/24 Ordered By: Neel Bauer Diet: Diabetic diet Activity on Discharge: As tolerated Stand Alone Forms: Patient Portal Discharge page, Community Support Print Language: Italian Care Plan Goals: stay sober take medication as proscribed take care of your diabetes you were admitted in a confusional state Health Concerns: Recent diabetic ketoacidosis with confusional state Mood lability /depression/irritability bipolar Cognitive impairment significant problems with short-term memory He would benefit from VNA Recent intake of opiates you state no longer available Atrial fibrillation Diabetic neuropathy Plan of Treatment: Depakote was increased to 750 mg daily Prozac was lowered to 20 mg daily as this can cause mood swings and irritability Please follow-up with psychiatric care Please follow-up with your medical appointments I strongly urged visiting nurse to make sure you are getting your meds as prescribed You came in with uncontrolled diabetes which could have been life-threatening and can cause organ damage Your primary care physician stated that they had made a referral to the [facility] at [facility] please follow-up there there are treatments and recommendations for cognitive impairment If having thoughts of self-harm police calm 911 go to the emergency room or call the suicide help line 352 You would benefit from diabetes education Talk with your primary care physicians about other treatments for your diabetes that may be available Assessment: Patient future oriented absolutely denies thoughts of self-harm some irritability Some difficulty accepting and understanding the extent of diabetes effect on his life and cognitive issues Patient states he will take his meds as prescribed Discharge Date/Time: 12/29/24 13:30
[2024-12-29 13:08] LABS: Valproate 27.5 mcg/mL (50.0-100.0)
[2024-12-29 13:12] LABS: Ammonia 49 umol/L (13-55)
[2024-12-29 15:34] LABS: Glucose, Whole Blood 242 mg/dL (60-115)
== END 2024-12-29 13:30 | disposition home health service (06) | DRG 885 ==
LOC: HO.PM5 12-23 09:55 → HO.PGERI 12-23 12:21
PROVIDERS: Psychiatry & Neurology Psychiatry; Admitting Provider Psychiatry & Neurology Psychiatry; Visit Provider Clinical Nurse Specialist Psychiatric/Mental Health, Adult
DX: F31.81 Bipolar II disorder (principal); G92.8 Other toxic encephalopathy; F05 Delirium due to known physiological condition; E11.51 Type 2 diabetes mellitus with diabetic peripheral angiopathy without gangrene; R41.9 Unspecified symptoms and signs involving cognitive functions and awareness; I48.91 Unspecified atrial fibrillation; F17.210 Nicotine dependence, cigarettes, uncomplicated; E11.65 Type 2 diabetes mellitus with hyperglycemia; F11.10 Opioid abuse, uncomplicated; Z71.6 Tobacco abuse counseling; Z79.4 Long term (current) use of insulin; Z79.01 Long term (current) use of anticoagulants; Z79.02 Long term (current) use of antithrombotics/antiplatelets; Z79.899 Other long term (current) drug therapy
CPT/HCPCS: 36415; 80048; 80053; 80061; 80164; 82140; 82565; 82607; 82746; 82947; 83036; 83540; 85025; 86780; 93005; 95816

== ENCOUNTER 2024-12-21 14:17 | Outpatient (BNV) | payer MEDICARE, SELFPAY | END 2024-12-27 08:00 | PROVIDERS: Admitting Provider Psychiatry & Neurology Psychiatry; Visit Provider Internal Medicine Cardiovascular Disease | DX: I48.91 Unspecified atrial fibrillation (principal); I45.10 Unspecified right bundle-branch block | CPT/HCPCS: 93010 ==

== ENCOUNTER 2024-12-21 14:17 | Outpatient (BNV) | payer MEDICARE, SELFPAY | END 2024-12-28 09:38 | PROVIDERS: Admitting Provider Psychiatry & Neurology Psychiatry; Visit Provider Internal Medicine Cardiovascular Disease | DX: I48.91 Unspecified atrial fibrillation (principal); I45.10 Unspecified right bundle-branch block | CPT/HCPCS: 93010 ==

== ENCOUNTER → 2024-12-21 14:17 | Outpatient (BNV) | payer MEDICARE, SELFPAY | PROVIDERS: Admitting Provider Psychiatry & Neurology Psychiatry; Visit Provider Psychiatry & Neurology Psychiatry | DX: F39 Unspecified mood [affective] disorder (principal); F11.10 Opioid abuse, uncomplicated; G92.8 Other toxic encephalopathy | CPT/HCPCS: 99232 ==

== ENCOUNTER → 2024-12-21 14:17 | Outpatient (BNV) | payer MEDICARE, SELFPAY | PROVIDERS: Admitting Provider Psychiatry & Neurology Psychiatry; Visit Provider Clinical Nurse Specialist Psychiatric/Mental Health, Adult | DX: F39 Unspecified mood [affective] disorder (principal); F11.10 Opioid abuse, uncomplicated; G92.8 Other toxic encephalopathy | CPT/HCPCS: 99499 ==

== ENCOUNTER 2025-01-06 17:41 | Emergency (ER) | payer MEDICARE, SELFPAY ==
[2025-01-06 17:58] VITALS: BP 161/87; PULSE 95; RESP 12; TEMP 36; O2SAT 97; BMI 40.7
[2025-01-06 18:01] LABS: Glucose, Whole Blood 108 mg/dL (60-115)
--- NOTE | 2025-01-06 18:01 | ECG_ITS ---
Test Reason : chest pain Blood Pressure : */* mmHG Vent. Rate : 99 BPM Atrial Rate : * BPM P-R Int : * ms QRS Dur : 128 ms QT Int : 410 ms P-R-T Axes : * 94 -7 degrees QTcB Int : 526 ms Atrial fibrillation Right bundle branch block Abnormal ECG When compared with ECG of 28-Dec-2024 09:38, Vent. rate has increased by 42 bpm QRS axis Shifted right QT has lengthened Referred By: Generic ED Physician Electronically Signed By: RAINE MCGOWAN
--- NOTE | 2025-01-06 18:09 | PC.NURSE ---
patient presents to pod yelling out that he has chest pain and sob, ekg and labs ordered. patient is alert and oriented, poc checked 108. VSS. patient states that his son was dc from [facility] today and he called 911 on him. patient states with his son home he has increased anxiety due to stress. patient denies SI/HI. patient making it appear he is incapable of helping himself but ambulates with steady gait.
[2025-01-06 18:43] LABS: MANUAL DIFF FLAG NO
[2025-01-06 18:47] LABS: Basophils Absolute Auto 0.1 X10*3/uL (0.0-0.2); Basophils Percent Auto 0.6 % (0-2); Eosinophils Absolute Auto 0.1 X10*3/uL (0.0-0.4); Eosinophils Percent Auto 0.7 % (0-4); Hematocrit 34.5 % (42.0-52.0); Hemoglobin 11.5 g/dl (14.0-18.0); Imm Gran Abs Auto 0.05 X10*3/uL (0.00-0.03); Imm Gran Pct Auto 0.5 % (0.0-0.4); Lymphocytes Absolute Auto 1.2 X10*3/uL (1.2-4.9); Lymphocytes Percent Auto 11.4 % (20-40); Mean Corpuscular HGB Conc 33.3 g/dl (31.0-36.0); Mean Corpuscular Hemoglobin 26.8 pg (27.0-33.0); Mean Corpuscular Volume 80.4 fL (80.0-98.0); Mean Platelet Volume 9.8 fL (9.4-12.4); Monocytes Absolute Auto 0.9 X10*3/uL (0.1-1.2); Monocytes Percent Auto 8.5 % (2-11); Neutrophils Absolute Auto 8.5 x10*3/uL (2.0-8.3); Neutrophils Percent Auto 78.3 % (45-73); Platelet Count 264 X10*3/uL (160-400); Red Blood Count 4.29 X10*6/uL (4.60-5.80); White Blood Count 10.9 X10*3/uL (4.8-10.8)
[2025-01-06 19:07] LABS: Troponin-I High Sensitivity 17.3 ng/L (<3.5-35.0)
[2025-01-06 19:11] LABS: Alanine Aminotransferase 10 U/L (0-40); Albumin Level 3.6 g/dL (3.5-5.0); Anion Gap 18 (12-20); Aspartate Amino Transferase 23 U/L (5-37); Blood Urea Nitrogen 20 mg/dL (9-16); Calcium 9.3 mg/dL (8.4-10.2); Carbon Dioxide 19 mmol/L (22-29); Chloride 102 mmol/L (96-108); Creatinine Clr Calc Pharmacy 85.4; Estimated Glomerular Filt Rate > 60; Ethanol < 10 mg/dL; Glucose Random 95 mg/dL (60-115); Sodium 135 mmol/L (135-145); Total Protein 6.6 g/dL (6.5-8.0)
[2025-01-06 19:31] LABS: Alkaline Phosphatase 71 U/L (39-117)
--- OUTSIDE RECORDS SUMMARY | 2025-01-06 20:35 | XMS_ITS | Encounter Summary ---
Author Organization Infer [facility] Address [address] [place] [address] Care Team Providers Care Seasonal Retail Merchandiser Name Role Phone Josh Dumont MD Primary Care Provider Encounter Details Date Type Department Care Team (Latest Contact Info) Description 11/29/2024 Lab Requisition [facility] Lab [address] [place] [address] Josh Dumont MD [facility] [place] [address] Essential (primary) hypertension; Type 2 diabetes mellitus without complications (CMS/HCC V24, CMS/HCC V28) Social History Tobacco Use Types Packs/Day Years [...] LAB CHEMISTRY METHOD 11/29/2024 12:43 PM EDT [facility] Potassium 4.7 3.5 - 5.5 mmol/L LAB CHEMISTRY METHOD 11/29/2024 12:43 PM [facility] Chloride 102 96 - 110 mmol/L LAB CHEMISTRY METHOD 11/29/2024 12:43 PM [facility] CO2 31 21 - 32 mmol/L LAB CHEMISTRY METHOD 11/29/2024 12:43 PM [facility] Anion Gap 5 3 - 11 LAB CHEMISTRY METHOD 11/29/2024 12:43 PM [facility] Glucose 143(H) 70 - 100 mg/dL LAB CHEMISTRY METHOD 11/29/2024 12:43 PM [facility] BUN 29(H) 5 - 25 mg/dL LAB CHEMISTRY METHOD 11/29/2024 12:43 PM [facility] Creatinine 1.12 0.70 - 1.30 mg/dL LAB CHEMISTRY METHOD 11/29/2024 12:43 PM [facility] eGFR 72 >=60 mL/min/1. 73m2 LAB CHEMISTRY METHOD 11/29/2024 12:43 PM [facility] Comment:Calculation based on the??Chronic Kidney Disease Epidemiology Collaboration (CKD-EPI) equation refit??without adjustment for race. BUN/Creatinine Ratio 25.9 LAB CHEMISTRY METHOD 11/29/2024 12:43 PM [facility] Calcium 8.9 8.5 - 10.5 mg/dL LAB CHEMISTRY METHOD 11/29/2024 12:43 PM [facility] Blood Venous blood specimen / Unknown Venipuncture / Unknown 11/29/2024 7:38 AM EDT 11/29/2024 11:59 AM EDT us Josh Dumont MD LAB BLOOD ORDERABLES Final R esult [facility] [address] [place] [address], * (ABNORMAL) Complete blood count (11/29/2024 7:38 AM EDT) [facility] WBC 6.3 4.8 - 10.8 K/mcL LAB HEMETOLOGY METHOD 11/29/2024 12:33 PM [facility] RBC 4.20(L) 4.50 - 5.50 M/mcL LAB HEMETOLOGY METHOD [facility] Hemoglobin 11.1(L) 13.5 - 17.5 g/dL LAB HEMETOLOGY METHOD 11/29/2024 12:33 PM [facility] Hematocrit 36.1(L) 42.0 - 54.0 % LAB HEMETOLOGY METHOD 11/29/2024 12:33 PM [facility] MCV 86.8 79.0 - 98.0 FL LAB HEMETOLOGY METHOD 11/29/2024 12:33 PM [facility] MCH 26.7(L) 27.0 - 32.0 pcg LAB HEMETOLOGY METHOD 11/29/2024 12:33 PM [facility] MCHC 30.7(L) 32.0 - 37.0 g/dL LAB HEMETOLOGY METHOD 11/29/2024 12:33 PM [facility] RDW 17.4(H) 11.0 - 15.0 % LAB HEMETOLOGY METHOD 11/29/2024 12:33 PM [facility] Platelets 182 130 - 400 K/mcL LAB HEMETOLOGY METHOD 11/29/2024 12:33 PM [facility] MPV 12.0(H) 7.0 - 11.0 FL LAB HEMETOLOGY METHOD 11/29/2024 12:33 PM [facility] NRBC 0.0 <1.0 % LAB HEMETOLOGY METHOD 11/29/2024 12:33 PM [facility] NRBC Absolute 0.00 <0.10 K/mcL LAB HEMETOLOGY METHOD 11/29/2024 12:33 PM EDT [facility] Blood Venous blood specimen / Unknown Venipuncture / Unknown 11/29/2024 7:38 AM EDT 11/29/2024 11:59 AM EDT Josh Dumont MD LAB BLOOD ORDERABLES Final R esult [facility] [address] [place] [address], documented in this encounter Visit Diagnoses Diagnosis Essential (primary) hypertension Unspecified essential hypertension Type 2 diabetes mellitus without complications (CMS/HCC V24, CMS/HCC V28) documented in this encounter Care Teams Seasonal Retail Merchandiser Relationship Specialty Start Date End Date Josh Dumont MD [address] [place] [address] PCP - General Family Medicine 11/29/24 documented as of this encounter
--- OUTSIDE RECORDS SUMMARY | 2025-01-06 20:35 | XMS_ITS | Clinical Summary ---
Author Organization 299 [facility] Address [address] [place] [address] Phone Care Team Providers Care Log Deck Tender Name Role Phone Josh Dumont MD Primary Care Provider Encounters Date Type Department Care Team Description 12/11/2024 Lab Requisition [facility] Lab [address] [place] [phone] Josh Dumont MD Unspecified atrial fibrillation ([facility] [place]24, [facility] V28); Type 1 diabetes mellitus, presymptomatic, unspecified; Chronic systolic (congestive) heart failure ([facility] V24, [facility] V28) 12/09/2024 Lab Requisition [facility] [address] [place] [phone] Josh Dumont MD Type 2 diabetes mellitus without complications ([facility] V24, [facility] V28) 11/29/2024 Lab Requisition [facility] [address] [place] [phone] Josh Dumont MD Essential (primary) hypertension; Type 2 diabetes mellitus without complications ([facility] V24, [facility] V28) from Last 3 Months Surgical History Surgery Date Site/Laterality Comments APPENDECTOMY PROCEDURE: HISTORICAL APPENDECTOMY BACK SURGERY PROCEDURE: HISTORICAL BACK SURGERY; COMMENT: surgery x 3, lumbar Medical History Medical History Date Comments Morbid obesity with BMI of 4 0.0-44.9, adult (CMS/HCC V24, [facility]/HCC V28) 08/14/2018 DX:Morbid obesity wit h BMI of 40.0-44.9, adult (HCC) Chronic hepatitis C (CMS/HCC V24, [facility] V28) 08/14/2018 DX:Chronic hepatitis C (HCC) ; COMMENT: Starting Harvoni 07/04/2018 Type 2 diabetes mellitus wit h neurological manifestations ([facility] V24, [facility] V28) 08/14/2018 DX:Type 2 diabetes mellitus with neurological manifestations (HCC) Persistent atrial fibrillati on ([facility] V24, [facility] V28) 08/14/2018 DX:Persistent atrial fibril lation (HCC) COPD (chronic obstructive pu lmonary disease) ([facility] V24, [facility] V28) 11/08/2018 DX:COPD (chronic o bstructive pulmonary disease) (HCC) Bipolar disorder ([facility] V2 4, [facility] V28) 11/08/2018 DX:Bipolar disorder ([facility]) CHF (congestive heart failur e) ([facility] V24, [facility] V28) 08/14/2018 DX:CHF (congestive heart fa ilure) ([facility]) GERD (gastroesophageal reflu x disease) [...] age to complete this topic Meningococcal B Vaccine Aged Out No l onger eligible based on patient's age to complete [...] K/mcL LAB HEMETOLOGY METHOD 12/11/2024 9:42 AM [facility] RBC 4.40(L) 4.50 - 5.50 M/mcL LAB HEMETOLOGY METHOD 12/11/2024 9:42 AM [facility] Hemoglobin 11.6(L) 13.5 - 17.5 g/dL LAB HEMETOLOGY METHOD 12/11/2024 9:42 AM [facility] Hematocrit 37.2(L) 42.0 - 54.0 % LAB HEMETOLOGY METHOD 12/11/2024 9:42 AM [facility] MCV 85.5 79.0 - 98.0 FL LAB HEMETOLOGY METHOD 12/11/2024 9:42 AM EDT [facility] MCH 26.7(L) 27.0 - 32.0 pcg LAB HEMETOLOGY METHOD 12/11/2024 9:42 AM EDT [facility] MCHC 31.2(L) 32.0 - 37.0 g/dL LAB HEMETOLOGY METHOD 12/11/2024 9:42 AM EDT [facility] RDW 17.2(H) 11.0 - 15.0 % LAB HEMETOLOGY METHOD 12/11/2024 9:42 AM EDT [facility] Platelets 306 130 - 400 K/mcL LAB HEMETOLOGY METHOD 12/11/2024 9:42 AM EDT [facility] MPV 10.3 7.0 - 11.0 FL LAB HEMETOLOGY METHOD 12/11/2024 9:42 AM EDT [facility] NRBC 0.0 <1.0 % LAB HEMETOLOGY METHOD 12/11/2024 9:42 AM EDT [facility] NRBC Absolute 0.00 <0.10 K/mcL LAB HEMETOLOGY METHOD 12/11/2024 9:42 AM EDT [facility] Blood Venous blood specimen / Unknown Venipuncture / Unknown 12/11/2024 5:15 AM EDT 12/11/2024 9:28 AM EDT Josh Dumont MD LAB BLOOD ORDERABLES Final R esult [facility] [address] [place] [address], * (ABNORMAL) B-type natriuretic peptide (12/11/2024 5:15 AM EDT) BNP 134(H) <=100 pcg/mL LAB CHEMISTRY METHOD 12/11/2024 10:26 AM EDT [facility] Blood Venous blood specimen / Unknown Venipuncture / Unknown 12/11/2024 5:15 AM EDT 12/11/2024 9:28 AM EDT Josh Dumont MD LAB BLOOD ORDERABLES Final R esult [facility] [address] [place] [address], * (ABNORMAL) Basic metabolic panel (12/11/2024 5:15 [...] 10:21 AM [facility] eGFR 70 >=60 mL/min/1. 73m2 LAB CHEMISTRY METHOD 12/11/2024 10:21 AM [facility] Comment:Calculation based on the??Chronic Kidney Disease Epidemiology Collaboration (CKD-EPI) equation refit??without adjustment for race. BUN/Creatinine Ratio 20.2 LAB CHEMISTRY METHOD 12/11/2024 10:21 AM EDT [facility] Calcium 9.5 8.5 - 10.5 mg/dL LAB CHEMISTRY METHOD 12/11/2024 10:21 AM EDT [facility] Blood Venous blood specimen / Unknown Venipuncture / Unknown 12/11/2024 5:15 AM EDT 12/11/2024 9:28 AM EDT us Josh Dumont MD LAB BLOOD ORDERABLES Final R esult [facility] ([email or web address] LAB [address] [place] [address], [place] [phone] from Last 3 Months Insurance [employer] - [place] MEDICARE ADVANTAGE Care Teams Log Deck Tender Relationship Specialty Start Date End Date Josh Dumont MD [address] [place] [address] PCP - General Family Medicine 11/29/24
--- OUTSIDE RECORDS SUMMARY | 2025-01-06 20:35 | XMS_ITS | Encounter Summary ---
Author Organization [facility] Address [address] [place] [address] Care Team Providers Care Station Jailer Name Role Phone Josh Dumont MD Primary Care Provider Encounter Details Date Type Department Care Team (Latest Contact Info) Description 12/09/[address] [facility] Lab [address] [place] [address] Josh Dumont MD [facility] [place] [address] Type 2 diabetes mellitus without complications (CMS/HCC [...] LAB CHEMISTRY METHOD 12/09/2024 11:43 AM EDT [facility] Potassium 5.0 3.5 - 5.5 mmol/L LAB CHEMISTRY METHOD 12/09/2024 11:43 AM EDT [facility] Chloride 100 96 - 110 mmol/L [...] MD LAB BLOOD ORDERABLES Final R esult [facility] [address] [place] [address], * (ABNORMAL) Complete blood count (12/09/2024 5:18 [...] K/mcL LAB HEMETOLOGY METHOD 12/09/2024 11:15 AM EDT [facility] Blood Venous blood specimen / Unknown Venipuncture / Unknown 12/09/2024 5:18 AM EDT 12/09/2024 10:44 AM EDT us Josh Dumont MD LAB BLOOD ORDERABLES Final R esult [facility] [address] [place] [address], documented in this encounter Visit Diagnoses Diagnosis Type 2 diabetes mellitus without complications (CMS/HCC V24, CMS/HCC V28) documented in this encounter Care Teams Station Jailer Relationship Specialty Start Date End Date Josh Dumont MD [address] [place] [address] PCP - General Family Medicine 11/29/24 documented as of this encounter
--- OUTSIDE RECORDS SUMMARY | 2025-01-06 20:35 | XMS_ITS | Encounter Summary ---
Author Organization [facility] Address [address] [place] [address] Care Team Providers Care Hair Assistant Name Role Phone Josh Dumont MD Primary Care Provider Encounter Details Date Type Department Care Team (Late st Contact Info) Description 12/11/2024 Lab Requisition [facility] [address] [facility] [place] [address] Josh Dumont MD [address] [place] [address] Unspecified atrial fibrillation (CMS/HCC V24, CMS/HCC V28); Type 1 diabetes mellitus, presymptomatic, unspecified; Chronic systolic (congestive) heart failure (CMS/HCC V24, CMS/HCC V28) Social History Tobacco [...] B-type natriuretic peptide (12/11/2024 5:15 AM EDT) [facility] BNP 134(H) <=100 pcg/mL LAB CHEMISTRY METHOD 12/11/2024 10:26 AM EDT [facility] Blood Venous blood specimen / Unknown Venipuncture / Unknown 12/11/2024 5:15 AM EDT 12/11/2024 9:28 AM EDT us Josh Dumont MD LAB BLOOD ORDERABLES Final R esult [facility] [address] [place] [address], [place] [phone] * (ABNORMAL) Basic metabolic panel (12/11/2024 5:15 AM EDT) [facility] Sodium 136 133 - 145 mmol/L LAB CHEMISTRY METHOD 12/11/2024 10:21 AM [facility] Potassium 4.6 3.5 - 5.5 mmol/L LAB CHEMISTRY METHOD 12/11/2024 10:21 AM [facility] Chloride 98 96 - 110 mmol/L LAB CHEMISTRY METHOD 12/11/2024 10:21 AM [facility] CO2 29 21 - 32 mmol/L LAB CHEMISTRY METHOD 12/11/2024 10:21 AM [facility] Anion Gap 9 3 - 11 LAB CHEMISTRY METHOD 12/11/2024 10:21 AM [facility] Glucose 165(H) 70 - 100 mg/dL LAB CHEMISTRY METHOD 12/11/2024 10:21 AM [facility] BUN 23 5 - 25 mg/dL LAB CHEMISTRY METHOD 12/11/2024 10:21 AM [facility] Creatinine 1.14 0.70 - 1.30 mg/dL LAB CHEMISTRY METHOD 12/11/2024 10:21 AM EDT [facility] eGFR 70 >=60 mL/min/1. 73m2 LAB CHEMISTRY METHOD 12/11/2024 10:21 AM T [facility] Comment:Calculation based on the??Chronic Kidney Disease Epidemiology Collaboration (CKD-EPI) equation refit??without adjustment for race. BUN/Creatinine Ratio 20.2 LAB CHEMISTRY METHOD 12/11/2024 10:21 AM EDT [facility] Calcium 9.5 8.5 - 10.5 mg/dL LAB CHEMISTRY METHOD 12/11/2024 10:21 AM EDT [facility] Blood Venous blood specimen / Unknown Venipuncture / Unknown 12/11/2024 5:15 AM EDT 12/11/2024 9:28 AM EDT Josh Dumont MD LAB BLOOD ORDERABLES Final R esult [facility] [address] [place] [address], * (ABNORMAL) Complete blood count (12/11/2024 5:15 AM EDT) WBC 10.1 4.8 - 10.8 K/mcL LAB HEMETOLOGY METHOD 12/11/2024 9:42 AM [facility] RBC 4.40(L) 4.50 - 5.50 M/mcL LAB HEMETOLOGY METHOD 12/11/2024 9:42 AM T [facility] Hemoglobin 11.6(L) 13.5 - 17.5 g/dL LAB HEMETOLOGY METHOD 12/11/2024 9:42 AM [facility] Hematocrit 37.2(L) 42.0 - 54.0 % LAB HEMETOLOGY METHOD 12/11/2024 9:42 AM T [facility] MCV 85.5 79.0 - 98.0 FL LAB HEMETOLOGY METHOD 12/11/2024 9:42 AM EDT [facility] MCH 26.7(L) 27.0 - 32.0 pcg LAB HEMETOLOGY METHOD 12/11/2024 9:42 AM EDT [facility] MCHC 31.2(L) 32.0 - 37.0 g/dL LAB HEMETOLOGY METHOD 12/11/2024 9:42 AM EDT [facility] RDW 17.2(H) 11.0 - 15.0 % LAB HEMETOLOGY METHOD 12/11/2024 9:42 AM EDT [facility] Platelets 306 130 - 400 K/mcL LAB HEMETOLOGY METHOD 12/11/2024 9:42 AM EDT [facility] MPV 10.3 7.0 - 11.0 FL LAB HEMETOLOGY METHOD 12/11/2024 9:42 AM EDT [facility] NRBC 0.0 <1.0 % LAB HEMETOLOGY METHOD 12/11/2024 9:42 AM EDT [facility] NRBC Absolute 0.00 <0.10 K/mcL LAB HEMETOLOGY METHOD 12/11/2024 9:42 AM EDT [facility] Blood Venous blood specimen / Unknown Venipuncture / Unknown 12/11/2024 5:15 AM EDT 12/11/2024 9:28 AM EDT us Josh Dumont MD LAB BLOOD ORDERABLES Final R esult [facility] [address] [place] [address], documented in this encounter Visit Diagnoses Diagnosis Unspecified atrial fibrillation (CMS/HCC V24, CMS/HCC V28) Type 1 diabetes mellitus, presymptomatic, unspecified Chronic systolic (congestive) heart failure (CMS/HCC V24, CMS/HCC V28) documented in this encounter Care Teams Hair Assistant Relationship Specialty Start Date End Date Josh Dumont MD [address] [place] [address] PCP - General Family Medicine 11/29/24 documented as of this encounter
--- NOTE | 2025-01-06 21:52 | ED_ITS ---
HPI - Psych General Chief Complaint: Psychiatric Symptoms Stated Complaint: anxiety, depression Time Seen by Provider: 01/06/25 18:28 History of Present Illness HPI Narrative: Patient is a 69-year-old male presented today with having anxiety. No suicidal homicidal ideation has a history of diabetes. Patient denies any access to guns Related Data Previous Rx's ?Medication ?Instructions ?Recorded buspirone 15 mg tablet 15 mg PO BID 30 days #60 tabs 12/29/24 clopidogrel 75 mg tablet 75 mg PO DAILY 30 days #30 tabs 12/29/24 divalproex 250 mg tablet,delayed 250 mg PO DIRECTED 30 days #90 12/29/24 release tabs empagliflozin 25 mg tablet 25 mg PO DAILY 30 days #30 tabs 12/29/24 (Jardiance) fluoxetine 20 mg capsule 20 mg PO DAILY 30 days #30 caps 12/29/24 lisinopril 10 mg tablet 10 mg PO DAILY 30 days #30 tabs 12/29/24 metformin 500 mg tablet 500 mg PO BID 30 days #60 tabs 12/29/24 metoprolol succinate 100 mg 100 mg PO DAILY 30 days #30 tabs 12/29/24 tablet,extended release 24 hr pregabalin 150 mg capsule 150 mg PO TID 30 days #90 caps 12/29/24 rivaroxaban 20 mg tablet (Xarelto) 20 mg PO DAILY 30 days #30 tabs 12/29/24 torsemide 20 mg tablet 20 mg PO DAILY 30 days #30 tabs 12/29/24 trazodone 50 mg tablet 50 mg PO BEDTIME 30 days #30 tabs 12/29/24 Allergies Allergy/AdvReac Type Severity Reaction Status Date / Time No Known Allergies Allergy Verified 01/06/25 17:59 Review of Systems 2 Review of Systems: No chest pain or shortness breath no systemic complaints Yes all other systems are reviewed and are negative PMFSH Past Medical History Attestation statement: The following information was validated with the patient. Social History Social History Household Members: Other Household Members Other:: adult son 41 years old [facility] Do you presently have visiting nurse or other home services: No Comment: sitter Patient Tobacco Use Status: Current everyday Tobacco user Tobacco use type: Cigarette Cigarette Packs Per Day: 1 Cigarettes Per Day: 20.0 e-Cigarette/Vaping Use: Never Used Second Hand Smoke Exposure: No Advance Directives: No Advance Directives Information Provided: No service: No Sexual orientation: Straight/Heterosexual Physical Exam 2 Vital Signs: Vital Signs: Last Vital Signs Temp 96.8 F 01/06/25 17:58 Pulse 95 01/06/25 17:58 Resp 12 01/06/25 17:58 BP 161/87 H 01/06/25 17:58 Pulse Ox 97 01/06/25 17:58 O2 Del Method Room Air 01/06/25 17:58 BMI result Body Mass Index 40.7 Appearance: Alert. Oriented X3. No acute distress. Eyes: Pupils equal, round and reactive to light. ENT: Pharynx normal. Neck: Normal inspection. Neck supple. No lymph nodes noted. No crepitus CVS: Normal heart rate and rhythm. Pulses normal. Normal S1 and S2 Respiratory: No respiratory distress. Breath sounds normal. No Wheezing. No rales Abdomen: Soft and nontender. No rigidity. No distention. good BS x4 Skin: Skin warm and dry. Normal skin color. Normal skin turgor. Extremities: No lower extremity edema. Neurovascular intact to all extremities. No Lacerations. No Rash Neuro: Oriented X 3. No motor deficit. No sensory deficit. Moving all extermities. No slurred speech. Cranial nerves grossly intact Medical Decision Making Medical Decision Making MDM Narrative: No acute distress awake alert oriented. Patient stated that his son was discharged from [facility] any feels increasingly stress. Feels anxiety at home want to be evaluated denies any suicidal homicidal I even at this point. Care team to evaluate patient. Patient evaluated by care team felt comfortable with discharge close follow-up outpatient basis. Differential Diagnosis Differential Diagnoses: The differential diagnosis associated with the presentation includes Anxiety, stress Admission/Observation Consideration of admission/observation: Escalation of care including admission/observation considered Consult Healthcare Provider Management of the patient was discussed with: Process Excellence Manager (Care team) Lab Data 01/06/25 18:35 01/06/25 18:35 Labs: Lab Results 01/06/25 01/06/25 Range/Units 17:56 18:35 WBC 10.9 H (4.8-10.8) X10*3/uL RBC 4.29 L (4.60-5.80) X10*6/uL Hgb 11.5 L (14.0-18.0) g/dl Hct 34.5 L (42.0-52.0) % MCV 80.4 (80.0-98.0) fL MCH 26.8 L (27.0-33.0) pg MCHC 33.3 (31.0-36.0) g/dl RDW 18.0 H (11.0-16.0) % Plt Count 264 (160-400) X10*3/uL MPV 9.8 (9.4-12.4) fL Immature Gran % (Auto) 0.5 H (0.0-0.4) % Neut % (Auto) 78.3 H (45-73) % Lymph % (Auto) 11.4 L (20-40) % [place] % (Auto) 8.5 (2-11) % Eos % (Auto) 0.7 (0-4) % Baso % (Auto) 0.6 (0-2) % Lymph # (Auto) 1.2 (1.2-4.9) X10*3/uL [place] # (Auto) 0.9 (0.1-1.2) X10*3/uL Eos # (Auto) 0.1 (0.0-0.4) X10*3/uL Baso # (Auto) 0.1 (0.0-0.2) X10*3/uL Abs Immat Gran (auto) 0.05 H (0.00-0.03) X10*3/uL Absolute Neuts (auto) 8.5 H (2.0-8.3) x10*3/uL Absolute Nucleated RBC 0.000 (0.0-0.012) X10*3/uL Nucleated RBC % (auto) 0.0 (0.0-0.2) /100WBC Sodium 135 (135-145) mmol/L Potassium 4.0 (3.3-5.1) mmol/L Chloride 102 (96-108) mmol/L Carbon Dioxide 19 L (22-29) mmol/L Anion Gap 18 (12-20) BUN 20 H (9-16) mg/dL Creatinine 1.03 (0.5-1.4) mg/dL Estim Creat Clear Calc 85.4 Estimated GFR > 60 POC Glucose 108 (60-115) mg/dL Random Glucose 95 (60-115) mg/dL Calcium 9.3 (8.4-10.2) mg/dL Total Bilirubin 1.0 (0.0-1.0) mg/dL AST 23 (5-37) U/L ALT 10 (0-40) U/L Alkaline Phosphatase 71 (39-117) U/L Troponin I High Sens 17.3 D (<3.5-35.0) ng/L Total Protein 6.6 (6.5-8.0) g/dL Albumin 3.6 (3.5-5.0) g/dL Ethyl Alcohol < 10 mg/dL Discharge Plan Discharge Clinical Impression: Anxiety Patient Disposition: Home, Self-Care Instructions: Anxiety (ED) Prescriptions: No Action fluoxetine 20 mg Capsule 20 mg PO DAILY 30 Days Qty: 30 0RF pregabalin 150 mg Capsule 150 mg PO TID 30 Days Qty: 90 0RF metformin 500 mg tablet 500 mg PO BID 30 Days Qty: 60 0RF torsemide 20 mg tablet 20 mg PO DAILY 30 Days Qty: 30 0RF divalproex 250 mg tablet,delayed release (DR/EC) 250 mg PO DIRECTED 30 Days Qty: 90 1RF Rx Instructions: 1 tab in the am 2 tabs at bedtime trazodone 50 mg tablet 50 mg PO BEDTIME 30 Days Qty: 30 0RF metoprolol succinate 100 mg tablet extended release 24 hr 100 mg PO DAILY 30 Days Qty: 30 0RF clopidogrel 75 mg tablet 75 mg PO DAILY 30 Days Qty: 30 0RF lisinopril 10 mg tablet 10 mg PO DAILY 30 Days Qty: 30 0RF buspirone 15 mg tablet 15 mg PO BID 30 Days Qty: 60 0RF Xarelto 20 mg tablet 20 mg PO DAILY 30 Days Qty: 30 0RF Jardiance 25 mg tablet 25 mg PO DAILY 30 Days Qty: 30 0RF Referrals: Physician,Nonstaff [Primary Care Provider] - 01/08/25 Interventions: [place]-Suicide Risk Severity Scale Last Done: 01/06/25 19:33 Print Language: Bulgarian
[2025-01-06 22:05] VITALS: BP 120/70; PULSE 80; RESP 16; TEMP 37; O2SAT 99
== END 2025-01-06 22:50 | disposition home or self-care (01) ==
PROVIDERS: Emergency Provider Emergency Medicine Emergency Medical Services
DX: F33.1 Major depressive disorder, recurrent, moderate (principal); F41.1 Generalized anxiety disorder; R07.89 Other chest pain; I48.91 Unspecified atrial fibrillation; F17.210 Nicotine dependence, cigarettes, uncomplicated; Z79.899 Other long term (current) drug therapy; Z51.81 Encounter for therapeutic drug level monitoring
CPT/HCPCS: 36415; 80053; 80307; 82947; 84484; 85025; 93005; 99284; S9485

== ENCOUNTER → 2025-01-06 18:01 | Outpatient (BNV) | payer MEDICARE, SELFPAY | PROVIDERS: Emergency Provider Emergency Medicine Emergency Medical Services; Visit Provider Internal Medicine | DX: I48.91 Unspecified atrial fibrillation (principal); I45.10 Unspecified right bundle-branch block | CPT/HCPCS: 93010 ==